=== PATIENT | female | born 1955 | race African-American/Black ===

== ENCOUNTER 2018-07-09 19:39 | Inpatient (IN) | payer OTHER ==
--- NOTE | 2018-07-09 19:59 | PDOC ---
Rapid Medical Evaluation Time Seen by Provider: 07/09/18 19:47 Medical Evaluation: Allergies Allergy/AdvReac Type Severity Reaction Status Date / Time No Known Drug Allergies Allergy Verified 04/26/16 19:39 07/09/18 19:47 The patient complaints of: weakness and fatigue with intermittent coughing, no fever no headache, mild left sided cp On brief exam: lcta, no reproducible cp, vss The patient was ordered for: ekg, cxr, cbc, comp, cardiac profile, mag The patient will proceed to the ED Discharge Disposition - Diagnosis Chest pain - Referrals - Patient Instructions - Post Discharge Activity
[2018-07-09 20:50] LABS: BASO % 0.5 % (0-2.0); EOS % 4.2 % (0-4.5); HEMATOCRIT 29.7 % (32.4-45.2); HEMOGLOBIN 9.5 GM/dL (10.7-15.3); LYMPH % 31.7 % (8-40); MCH 23.5 pg (25.7-33.7); MCHC 32.2 g/dl (32.0-36.0); MEAN PLT VOLUME 8.8 fl (7.5-11.1); MONO % 4.3 % (3.8-10.2); NEUT % 59.3 % (42.8-82.8); PLATELET COUNT 240 K/MM3 (134-434); RBC 4.06 M/mm3 (3.60-5.2); RDW 19.3 % (11.6-15.6); WHITE BLOOD COUNT 10.6 K/mm3 (4.0-10.0)
[2018-07-09 20:52] LABS: URINE APPEARANCE CLEAR; URINE BILIRUBIN NEGATIVE (<2.0 mg/dL); URINE COLOR LTYELLOW; URINE GLUCOSE (UA) 1+ (NEGATIVE); URINE KETONE NEGATIVE (NEGATIVE); URINE LEUK ESTERASE NEGATIVE (NEGATIVE); URINE NITRITE NEGATIVE (NEGATIVE); URINE PROTEIN 2+ (NEGATIVE); URINE UROBILINOGEN NEGATIVE mg/dL (0.2-1.0)
--- NOTE | 2018-07-09 20:58 | PDOC ---
History of Present Illness - General Chief Complaint: Pain Stated Complaint: SOB Time Seen by Provider: 07/09/18 19:47 History Source: Patient Exam Limitations: No Limitations - History of Present Illness Initial Comments: 07/09/18 21:25 62-year-old female with past medical history of myocardial infarction, coronary artery disease, coronary stent, diabetes, chronic renal disease, COPD, gout, stent in the left lower leg (PAD), bronchitis (1-2 times annually) presents to emergency department for cough, chest tightness and SOB for two days. She admits to exertional shortness of breath, bilateral lower extremity swelling (left greater than right), chills, body aches, headache, lightheadedness. She states when she was walking she had an episode of shortness of breath associated with peeing on herself. she denies palpitations, hemoptysis, fevers, nausea, diarrhea, vomiting, abdominal pain, back pain, recent falls or injuries, dizziness. She denies traveling >5 hours, surgery <4 weeks, active malignancy <6 months, hx DVT/PE, hormone use, casting of extremities. PCP - [employer] - pt does not remember name Vascular - pt does not remember name Renal - pt does not remember name Past History - Past Medical History Allergies/Adverse Reactions: Allergies Allergy/AdvReac Type Severity Reaction Status Date / Time No Known Drug Allergies Allergy Verified 07/09/18 19:53 Home Medications: Ambulatory Orders Aspirin [ASA -] 81 mg PO DAILY 09/04/12 Metoprolol Succinate [Toprol XL -] 50 mg PO DAILY 09/04/12 Simvastatin [Zocor -] 40 mg PO DAILY 09/04/12 Amlodipine Besylate [Norvasc -] 10 mg PO DAILY 01/11/13 Ramipril 5 mg PO DAILY 01/11/13 predniSONE [Deltasone -] 40 mg PO DAILY #8 tablet 04/26/16 Oxycodone HCl/Acetaminophen [Percocet 5-325 mg Tablet] 1 tab PO Q6H PRN #10 tablet MDD 4 04/27/16 Anemia: No Asthma: No Cancer: No Cardiac Disorders: No CVA: No COPD: No CHF: No Dementia: No Diabetes: No GI Disorders: No Disorders: No HTN: Yes Hypercholesterolemia: Yes Liver Disease: No Seizures: No Thyroid Disease: No - Surgical History Abdominal Surgery: Yes (ABD HERNIA: 12/14/12) Appendectomy: No Cardiac Surgery: No Cholecystectomy: No Lung Surgery: No Neurologic Surgery: No Orthopedic Surgery: No - Suicide/Smoking/Psychosocial Hx Smoking Status: Yes Smoking History: Current every day smoker Have you smoked in the past 12 months: Yes Number of Cigarettes Smoked Daily: 7 If you are a former smoker, when did you quit?: LAST WEEK Information on smoking cessation initiated: No 'Breaking Loose' booklet given: 09/07/12 Hx Alcohol Use: No Drug/Substance Use Hx: No Substance Use Type: Alcohol Hx Substance Use Treatment: No Review of Systems - Review of Systems Able to Perform ROS?: Yes Comments:: 07/09/18 21:27 General: admits to generalized weakness, chills, body aches. denies fever. HEENT: denies sore throat, rhinorrhea, ear pain. Heart: admits to chest tightness, lightheadedness. denies chest pain, palpitations, syncope, diaphoresis. Respiratory: admits to shortness of breath, cough. denies sputum production, hemoptysis. Abdomen: denies abdominal pain, nausea, vomiting, diarrhea, constipation, blood in stool. : denies dysuria, increased urinary frequency, hematuria, flank pain. Back: denies back pain. Musculoskeletal: admits to bilateral lower extremity swelling, (L>R) denies joint pain. Neurological: admits to headache. denies dizziness, numbness, tingling, weakness. Skin: denies rash, laceration, abrasion. *Physical Exam - Vital Signs Last Vital Signs Temp Pulse Resp BP Pulse Ox 99.2 F 82 18 144/94 98 07/09/18 19:46 07/09/18 19:46 07/09/18 19:46 07/09/18 19:46 07/09/18 19:46 - Physical Exam Comments: 07/09/18 21:29 Constitutional: Well-nourished, Well-developed, appearing stated age. HEENT: head is normocephalic, atraumatic. EOMI. PERRLA. Neck: supple. Full ROM. Heart: regular rhythm. no murmurs, rubs or gallops. Lungs: diffuse wheezing. no crackles, no stridor, no rhonchi. Abdomen: soft, nontender. normal bowel sounds. no rebound, guarding, masses. Extremities: Peripheral pulses intact and equal. non-pitting edema to ankles bilaterally, L>R. Neurological: CN 2-12 grossly intact. Moves all four extremities. Psych: awake, alert, oriented x3. Follows commands. Answers questions appropriately. ED Treatment Course - LABORATORY CBC & Chemistry Diagram: 07/10/18 06:30 07/10/18 06:30 - ADDITIONAL ORDERS Additional order review: Laboratory Results 07/09/18 20:20 Urine Color Ltyellow Urine Appearance Clear Urine pH 6.0 Ur Specific [place] 1.006 L Urine Protein 2+ H Urine Glucose (UA) 1+ H Urine Ketones Negative Urine Blood Negative Urine Nitrite Negative Urine Bilirubin Negative Urine Urobilinogen Negative Ur Leukocyte Esterase Negative Medical Decision Making - Medical Decision Making 07/09/18 21:41 62-year-old female with past medical history of myocardial infarction, coronary artery disease, coronary stent, diabetes, chronic renal disease, COPD, gout, stent in the left lower leg (PAD), bronchitis (1-2 times annually) presents to emergency department complaining of cough, chest tightness and SOB for two days associated with bilateral lower extremity swelling (L>R). Initial Vital Signs Temp Pulse Resp BP Pulse Ox 99.2 F 82 18 144/94 98 07/09/18 19:46 07/09/18 19:46 07/09/18 19:46 07/09/18 19:46 07/09/18 19:46 Afebrile. No tachycardia. No tachypnea. Mild hypertension. No hypoxia on room air. EKG performed at 2031 - rate 73, regular rhythm, normal axis, normal intervals, no acute ST changes. Concern for pneumonia/bronchitis - Pending CXR, CBC Concern for CHF - lower extremity swelling, exertional SOB, hx chronic renal disease - Pending CXR, BNP Concern for ACS/arrhythmia - Pending EKG, cardiac enzymes Concern for electrolyte abnormality - Pending CMP, Mag Low concern for DVT - bilateral LE swelling - Pending Doppler US LE bilaterally 07/09/18 22:19 CBC WBC 10.6 K/mm3 (4.0-10.0) H 07/09/18 20:20 RBC 4.06 M/mm3 (3.60-5.2) 07/09/18 20:20 Hgb 9.5 GM/dL (10.7-15.3) L 07/09/18 20:20 Hct 29.7 % (32.4-45.2) L D 07/09/18 20:20 MCV 73.0 fl (80-96) L 07/09/18 20:20 MCH 23.5 pg (25.7-33.7) L 07/09/18 20:20 MCHC 32.2 g/dl (32.0-36.0) 07/09/18 20:20 RDW 19.3 % (11.6-15.6) H 07/09/18 20:20 Plt Count 240 K/MM3 (134-434) 07/09/18 20:20 MPV 8.8 fl (7.5-11.1) 07/09/18 20:20 Absolute Neuts (auto) 6.3 K/mm3 (1.5-8.0) 07/09/18 20:20 Neutrophils % 59.3 % (42.8-82.8) 07/09/18 20:20 Lymphocytes % 31.7 % (8-40) 07/09/18 20:20 Monocytes % 4.3 % (3.8-10.2) 07/09/18 20:20 Eosinophils % 4.2 % (0-4.5) 07/09/18 20:20 Basophils % 0.5 % (0-2.0) 07/09/18 20:20 Nucleated RBC % 0 % (0-0) 07/09/18 20:20 Mild leukocytosis without left shift. No anemia. CMP Sodium 141 mmol/L (136-145) 07/09/18 20:20 Potassium 3.5 mmol/L (3.5-5.1) 07/09/18 20:20 Chloride 109 mmol/L (98-107) H 07/09/18 20:20 Carbon Dioxide 25 mmol/L (21-32) 07/09/18 20:20 Anion Gap 8 MMOL/L (8-16) 07/09/18 20:20 BUN 31 mg/dL (7-18) H 07/09/18 20:20 Creatinine 4.2 mg/dL (0.55-1.3) H 07/09/18 20:20 Creat Clearance w eGFR 10.76 (>60) 07/09/18 20:20 Random Glucose 114 mg/dL (74-106) H 07/09/18 20:20 Calcium 8.8 mg/dL (8.5-10.1) 07/09/18 20:20 Magnesium 2.4 mg/dL (1.8-2.4) 07/09/18 20:20 Total Bilirubin 0.3 mg/dL (0.2-1) 07/09/18 20:20 AST 33 U/L (15-37) 07/09/18 20:20 ALT 22 U/L (13-61) 07/09/18 20:20 Alkaline Phosphatase 111 U/L (45-117) 07/09/18 20:20 Creatine Kinase 348 IU/L (26-192) H 07/09/18 20:20 Creatine Kinase Index 0.7 % (0.0-5.0) 07/09/18 20:20 CK-MB (CK-2) 2.6 ng/mL (0.5-3.6) 07/09/18 20:20 Troponin I 0.02 ng/ml (0.00-0.05) 07/09/18 20:20 Total Protein 7.2 g/dl (6.4-8.2) 07/09/18 20:20 Albumin 2.8 g/dl (3.4-5.0) L 07/09/18 20:20 No emergent electrolyte abnormalities. Kidney injury. Mild hyperglycemia. - Hx DM Elevated CK Normal troponin. 07/09/18 22:22 Urine Test Results Urine Color Ltyellow 07/09/18 20:20 Urine Appearance Clear 07/09/18 20:20 Urine pH 6.0 (5.0-8.0) 07/09/18 20:20 Ur Specific [place] 1.006 (1.010-1.035) L 07/09/18 20:20 Urine Protein 2+ (NEGATIVE) H 07/09/18 20:20 Urine Glucose (UA) 1+ (NEGATIVE) H 07/09/18 20:20 Urine Ketones Negative (NEGATIVE) 07/09/18 20:20 Urine Blood Negative (NEGATIVE) 07/09/18 20:20 Urine Nitrite Negative (NEGATIVE) 07/09/18 20:20 Urine Bilirubin Negative (<2.0 mg/dL) 07/09/18 20:20 Ur Leukocyte Esterase Negative (NEGATIVE) 07/09/18 20:20 No evidence of UTI. Proteinuria. 07/09/18 22:30 CXR - no infiltrate. congestive changes as compared to prior (2016). Doppler US - negative for DVT bilaterally. 07/09/18 23:47 BNP 3457, prior 787 (2016). High suspicion for CHF and fluid overload at this time. - Elevated BNP - Congestive changes to CXR - Elevated Cr - Lower extremity swelling, SOB Due to her chronic kidney disease, and many other co-morbidities, I feel that the patient should be admitted at this time. Hospitalist paged. 07/10/18 00:[address] Ramirez, resident plastic and reconstructive surgeon, about the case, he states the patient will be admitted to Dr. Sullivan's care. *DC/Admit/Observation/Transfer Diagnosis at time of Disposition: Chest pain - Discharge Dispostion Condition at time of disposition: Stable Decision to Admit order: Yes - Referrals - Patient Instructions - Post Discharge Activity
[2018-07-09 21:20] LABS: ALBUMIN 2.8 g/dl (3.4-5.0); ALK PHOS 111 U/L (45-117); ANION GAP 8 MMOL/L (8-16); BILIRUBIN,TOTAL 0.3 mg/dL (0.2-1); BLOOD UREA NITROGEN 31 mg/dL (7-18); CALCIUM 8.8 mg/dL (8.5-10.1); CHLORIDE 109 mmol/L (98-107); CO2 25 mmol/L (21-32); CREATININE 4.2 mg/dL (0.55-1.3); GLUCOSE,RANDOM 114 mg/dL (74-106); MAGNESIUM 2.4 mg/dL (1.8-2.4); SGOT/AST 33 U/L (15-37); SGPT/ALT 22 U/L (13-61); SODIUM 141 mmol/L (136-145); TOT PROT 7.2 g/dl (6.4-8.2)
[2018-07-09 21:58] LABS: POTASSIUM 3.5 mmol/L (3.5-5.1)
--- NOTE | 2018-07-09 21:59 | PDOC ---
Attending Attestation - [facility] HPI: 07/09/18 23:14 The patient is a 62-year-old female with a significant past medical history of myocardial infarction, coronary stent, purple artery disease, diabetes, chronic renal disease, COPD, gout, stent in the left lower leg (PAD), bronchitis (1-2 times annually) who presents to the ED for cough, chest tightness and SOB for two days. Patient reports shortness of breath, bilateral lower extremity swelling (left greater than right), chills, body aches, headache, lightheadedness associated with present symptoms. She states when she was walking she had an episode of shortness of breath associated with peeing on herself. Denies fever or chills. Denies palpitations, hemoptysis, fevers, nausea, diarrhea, vomiting, abdominal pain. Denies any other symptoms. Documentation prepared by Nick Huynh, acting as medical representative for Liliana Armendariz DO. - Physicial Exam PE: 07/09/18 23:15 Constitutional: + sleeping comfortably, not short of breath. Awake, alert, oriented. No acute distress. Head: Normocephalic. Atraumatic Eyes: PERRL. EOMI. Conjunctivae are not pale. ENT: Mucous membranes are moist and intact. Posterior pharynx without exudates or erythema. Uvula midline. Neck: Supple. Full ROM. No lymphadenopathy. Cardiovascular: Regular rate. Regular rhythm. S1, S2 regular. Distal pulses are 2+ and symmetric. Pulmonary/Chest: + diminished breath sounds bilaterally. No wheezing, rales or rhonchi. Abdominal: Soft and non-distended. There is no tenderness. No rebound, guarding or rigidity. No organomegaly. No palpable masses. Good bowel sounds. Back: No CVA tenderness. Musculoskeletal: + Swelling in ankles bilaterally, left ankle trace swelling larger than right. No edema. No cyanosis. No clubbing. Full range of motion in all extremities. Nocalf tenderness. Radial/pedal pulses are intact and 2+ bilaterally Skin: Skin is warm and dry. No petechiae. No purpura. Neurological: Alert and oriented to person, place, and time. Cranial nerves II -XII are grossly intact. Normal speech. Strength is grossly symmetric. No sensory deficits. Psychiatric: Good eye contact. Normal interaction, affect and behavior. <Nick Huynh - Last Filed: 07/09/18 23:14> - Resident Resident Name: Kelly Feng - ED Attending Attestation I have performed the following: I have examined & evaluated the patient, The case was reviewed & discussed with the resident, I agree w/resident's findings & plan, Exceptions are as noted - Medical Decision Making 07/09/18 21:59 I, Dr. Liliana Armendariz, DO, attest that this document has been prepared under my direction and personally reviewed by me in its entirety. I further attest, that it accurately reflects all work, treatment, procedures and medical decision -making performed by me. 07/09/18 23:51 a/p: 62yo female with LE swelling and sob -hx of CKD - pending renal transplant -pt with [facility] -no cp -no f/c -pt with diminished BS b/l most likely from [facility] -will send labs, bnp, duplex us le, cxr -will most likely need obs 07/09/18 23:51 pt with elevated BNP cephalization on cxr duplex u/s negative suspect chf/volume overload will give small IV dose of lasix will place in obs 07/10/18 00:45 resident discussed with [facility] who accepts pt to service <Liliana Armendariz - Last Filed: 07/10/18 00:45> Heart Score/ECG Review - ECG Intrepretation Comment:: 07/09/18 23:52 sinus at 73, nl axis, nl interval, no acute st/t wave findings <Liliana Armendariz - Last Filed: 07/10/18 00:45>
[2018-07-09 23:37] LABS: N-TERMINAL BNP 3456.8 pg/ml (5-125)
[2018-07-09] MEDS ORDERED: ALBUTEROL SO4 2.5/IPRATROPIUM 0.5 INH SOL 3 ML VIAL.NEB. NEB ONE (23:45)
[2018-07-09] MEDS ORDERED: FUROSEMIDE 40 MG/4 ML INJECTABLE VIAL IVPUSH ONE (23:51)
[2018-07-09] MEDS: ALBUTEROL SO4 2.5/IPRATROPIUM 0.5 INH SOL 3 ML VIAL.NEB. NEB SCH (23:54)
--- NOTE | 2018-07-10 00:39 | PN ---
Teaching Attending Note Name of Resident: Jane Angelo ATTENDING PHYSICIAN STATEMENT I saw and evaluated the patient. I reviewed the resident's note and discussed the case with the resident. I agree with the resident's findings and plan as documented. SUBJECTIVE: Patient is a 62 year old woman with PMH of myocardial infarction, CAD with stent , NIDDM, CKD, COPD, gout, stent in the left lower leg (PAD), and bronchitis presents to ER for cough, chest tightness and SOB for two days. She admits to exertional shortness of breath, bilateral lower extremity swelling (left greater than right), chills, body aches, headache, lightheadedness. She states when she was walking she had an episode of shortness of breath associated with peeing on herself. Denies palpitations, hemoptysis, fevers, nausea, diarrhea, vomiting, abdominal pain, back pain, recent falls, dizziness or hormone use. OBJECTIVE: Alert Vital Signs Period Temp Pulse Resp BP Sys/[place] Pulse Ox Last 24 Hr 99.2 F 82 18 144/94 98 HEENT: No Jaundice, eye redness or discharge, PERRLA, EOMI. Normocephalic, atraumatic. External ears are normal and hearing is grossly intact. No nasal discharge. Neck: Supple, nontender. No palpable adenopathy or thyromegaly. No JVD Chest: Good effort. Clear to auscultation and percussion. Heart: Regular. No S3, rub or murmur Abdomen: Not distended, soft, nontender and no HSM. No rebound or guarding. Normoactive bowel sounds. Ext: Peripheral pulses intact. No leg edema. Skin: Warm and dry. No petechiae, rash or ecchymosis. Neuro: Alert. Oriented x3. CN 2-12 grossly intact. Sensation grossly intact in all four extremities and DTR are symmetric. Home Medications Medication Instructions Recorded Aspirin [ASA -] 81 mg PO DAILY 09/04/12 Metoprolol Succinate [Toprol XL -] 50 mg PO DAILY 09/04/12 Simvastatin [Zocor -] 40 mg PO DAILY 09/04/12 Amlodipine Besylate [Norvasc -] 10 mg PO DAILY 01/11/13 Ramipril 5 mg PO DAILY 01/11/13 predniSONE [Deltasone -] 40 mg PO DAILY #8 tablet 04/26/16 Oxycodone HCl/Acetaminophen 1 tab PO Q6H PRN #10 tablet MDD 4 04/27/16 [Percocet 5-325 mg Tablet] Abnormal Lab Results 07/09/18 07/09/18 07/09/18 20:20 20:20 20:20 WBC 10.6 H Hgb 9.5 L Hct 29.7 L D MCV 73.0 L MCH 23.5 L RDW 19.3 H Chloride 109 H BUN 31 H Creatinine 4.2 H Random Glucose 114 H Creatine Kinase 348 H B-Natriuretic Peptide 3456.8 H Albumin 2.8 L Ur Specific [place] 1.006 L Urine Protein 2+ H Urine Glucose (UA) 1+ H ASSESSMENT AND PLAN: 1. Chest pain/SOB - No significant EKG changes and troponin is negative. Will admit to telemetry to rule out ACS and get ECHO. SOB likely chiefly due to fluid overload accompanying CKD, rather than primary LV "pump" failure. Will diurese with appropriate dose of lasix and ensure that she is on lasix upon discharge. KATHRINE and/or obesity hypoventilation syndrome may be contributing to her SOB. CXR shows elevation of right hemidiaphragm which is chronic - no acute pathology. 2. Hypoalbuminemia - Possibly due to combined effects of proteinuria, malnutrition and inflammation associated with comorbid chronic conditions. Will ensure adequate dietary protein intake and also consult vein access technician. 3. Tobacco Use We will provide patient all the necessary assistance to facilitate smoking cessation and prescribe Nicotine patch. 4. CKD stage 4 - Has multiple risk factors for CKD. Will consult nephrology and avoid nephrotoxic agents such as NSAIDS, aminoglycosides, contrast dyes and certain Alternative medicine products. 5. Low MCV Anemia - Likely partly due to CKD. Will do basic anemia work up including serial stool guaiacs, reticulocyte count and iron studies. Needs routine colonoscopy. Would benefit from Procrit therapy once iron replete. 6. Obesity - Will provide patient all the necessary assistance, counseling and positive reinforcement to facilitate weight loss. Consult vein access technician. 7. DVT prophylaxis - Heparin 5000u sq tid. 8. Advance directives - Full code
--- NOTE | 2018-07-10 02:50 | HP ---
CHIEF COMPLAINT: Sob x1 week PCP: Dr. Lim HISTORY OF PRESENT ILLNESS: 62F w/ pmhx of HTN, HLD, GERD, Gout, CAD s/p 1 stent (2013), CKD, PVD s/p 1 stent, COPD, DM presented with 1 week history of shortness of breath. She states since a week ago, her shortness of breath was not correlated with walking until 1 day ago where she started becoming sob with any activity. Pt also reports usually using 2 pillows to sleep, but since 1 day ago, she started using 4-5 pillows. Of note, she admits that she has had multiple episodes of bronchitis in the past in which she used her nebulizer 3-4 times. She used her nebulizer yesterday, but with no relief. Pt also admits to lower extremity swelling L > R , pain in the R leg. Additionally, she complains of urinary incontinence for the past several years, +urinary dribbling, but has not told her PCP about this problem. Denies fever/chills, n/v, chest pain, abd pain, constipation/diarrhea, dizziness. Last echo was reportedly done last summer at [facility]. She follows up with her online media director at [facility]. ER course was notable for: (1) WBC 10.6, Hgb 9.5, Hct 29.7, Cr 42; U/A showed 2+ Pro, 1+ Glu; BNP, 3456; LE duplex neg for DVT, b/l popliteal fossa cyst (2) Duonebs given, Lasix 20 mg IVP given (3) Recent Travel: Denies PAST MEDICAL HISTORY: HTN HLD GERD Gout CAD s/p 1 stent CKD PVD s/p 1 sten COPD DM PAST SURGICAL HISTORY: ventral hernia repair C-sections x3 CAD s/p stent x1 L leg stent Social History: Smoking: Alcohol: Drugs: Family History: Mom: Heart disease, of [place] at 68, DM, HTN Allergies No Known Drug Allergies Allergy (Verified 07/09/18 19:53) HOME MEDICATIONS: Unable to obtain as patient forgot her medication list at home. REVIEW OF SYSTEMS CONSTITUTIONAL: Absent: fever, chills, diaphoresis, generalized weakness, malaise, loss of appetite, weight change HEENT: Absent: rhinorrhea, nasal congestion, throat pain, visual changes CARDIOVASCULAR: +peripheral edema Absent: chest pain, syncope, palpitations, irregular heart rate, lightheadedness , RESPIRATORY: +cough, shortness of breath, dyspnea with exertion, orthopnea Absent: wheezing, stridor, hemoptysis GASTROINTESTINAL: Absent: abdominal pain, abdominal distension, nausea, vomiting, diarrhea, constipation GENITOURINARY: Absent: dysuria, frequency, urgency, hesitancy, hematuria MUSCULOSKELETAL: Absent: myalgia, arthralgia, joint swelling, back pain, neck pain ENDOCRINE: Absent: unexplained weight gain, unexplained weight loss, heat intolerance, cold intolerance NEUROLOGIC: +bladder incontinence Absent: headache, focal weakness or paresthesias, dizziness, unsteady gait, seizure, mental status changes, bowel incontinence PSYCHIATRIC: Absent: anxiety, depression, suicidal or homicidal ideation, hallucinations. PHYSICAL EXAMINATION Vital Signs - 24 hr 07/09/18 19:46 Temperature 99.2 F Pulse Rate 82 Respiratory 18 Rate Blood Pressure 144/94 O2 Sat by Pulse 98 Oximetry (%) GENERAL: AAOx3. NAD. Mildly tachypneic. Sitting upright. HEENT: AT/NC. EOMI. MARIUSZ. Dry mucus membranes. NECK: Supple, no LAD/JVD. LUNGS: CTA B/L. R sided wheezes. Symmetric chest rise. No accessory muscle use. HEART: RRR. Normal S1, S2. No murmurs noted. ABDOMEN: Obese. Soft, NT/ND. +BS in all 4 Q's. No masses or bruits noted. MUSCULOSKELETAL: No pedal edema. 5/5 muscle strength in b/l u/l extremities. NEUROLOGICAL: Normal speech. CN II-XII intact. PSYCHIATRIC: Cooperative. Good eye contact. Appropriate mood and affect. SKIN: Warm, dry, normal turgor, normal capillary refill. Laboratory Results - last 24 hr 07/09/18 07/09/18 07/09/18 20:20 20:20 20:20 WBC 10.6 H RBC 4.06 Hgb 9.5 L Hct 29.7 L D MCV 73.0 L MCH 23.5 L MCHC 32.2 RDW 19.3 H Plt Count 240 MPV 8.8 Absolute Neuts (auto) 6.3 Neutrophils % 59.3 Lymphocytes % 31.7 Monocytes % 4.3 Eosinophils % 4.2 Basophils % 0.5 Nucleated RBC % 0 Sodium 141 Potassium 3.5 Chloride 109 H Carbon Dioxide 25 Anion Gap 8 BUN 31 H Creatinine 4.2 H Creat Clearance w eGFR 10.76 Random Glucose 114 H Calcium 8.8 Magnesium 2.4 Total Bilirubin 0.3 AST 33 ALT 22 Alkaline Phosphatase 111 Creatine Kinase 348 H Creatine Kinase Index 0.7 CK-MB (CK-2) 2.6 Troponin I 0.02 B-Natriuretic Peptide 3456.8 H Total Protein 7.2 Albumin 2.8 L Urine Color Ltyellow Urine Appearance Clear Urine pH 6.0 Ur Specific [place] 1.006 L Urine Protein 2+ H Urine Glucose (UA) 1+ H Urine Ketones Negative Urine Blood Negative Urine Nitrite Negative Urine Bilirubin Negative Urine Urobilinogen Negative Ur Leukocyte Esterase Negative Urine WBC (Auto) 1 Urine RBC (Auto) <1 07/09/18 20:23 WBC RBC Hgb Hct MCV MCH MCHC RDW Plt Count MPV Absolute Neuts (auto) Neutrophils % Lymphocytes % Monocytes % Eosinophils % Basophils % Nucleated RBC % Sodium Potassium Chloride Carbon Dioxide Anion Gap BUN Creatinine Creat Clearance w eGFR Random Glucose Calcium Magnesium Total Bilirubin AST ALT Alkaline Phosphatase Creatine Kinase Creatine Kinase Index CK-MB (CK-2) Troponin I B-Natriuretic Peptide Cancelled Total Protein Albumin Urine Color Urine Appearance Urine pH Ur Specific [place] Urine Protein Urine Glucose (UA) Urine Ketones Urine Blood Urine Nitrite Urine Bilirubin Urine Urobilinogen Ur Leukocyte Esterase Urine WBC (Auto) Urine RBC (Auto) ASSESSMENT/PLAN: 62F w/ pmhx of HTN, HLD, GERD, Gout, CAD s/p 1 stent (2013), CKD, PVD s/p 1 stent, COPD, DM admitted for CHF exacerbation. #Shortness of breath 2/2 CHF exacerbation vs. OHS. vs KATHRINE; BNP 3456 w/ R sided wheezes and significant orthopnea. Pt likely has CHF exac as she states she has been needing to use 4-5 pillows at night to help her breath. She may also have a component of sleep apnea or OHS due to her body habitus. -Lasix 80 mg IVP QD -monitor I/O's -daily weights -Echo ordered -Pt needs outpatient work up for possible OHS or KATHRINE as cause of sob. #CKD; Possibly due to diabetes, although unclear from history. She states that all of her specialists are from [facility]. Pt has never been on dialysis because her paving contractor was again starting her on HD and instead, getting a transplant. She reports she was put on the transplant list last summer. -Nephro consult ordered -Pt needs outpatient follow up with her own paving contractor #Anemia;Hgb 9.5. May be due to CKD. -Iron studies/retic count/FOBT ordered -Verify with pt if she had colonoscopy done before. If not, pt needs GI follow up outpatient #DM; Pt states that she gets weekly injection in her belly for her diabetes. History unclear as pt says her diabetes is "under control." -BGMs -ISS -Pt will need outpatient follow up for further evaluation and proper treatment of diabetes. -Hgb A1c ordered #HTN; Currently 144/94, stable. -Pt currently takes home BP meds, but cannot name her meds. Needs med rec. #HLD -Lipid profile ordered -Pt takes statin at home, but unsure of what dose; Needs med rec. #Obesity -Poultry Husbandman consult -Nutrition counseling/weight loss counseling #DVT Ppx -Heparin 5000U SQ TID #FEN -no IVf needed -recheck lytes in AM -Sodium-controlled diet dispo -admit to med-surg -full code -Needs medications reconciled Visit type - Emergency Visit Emergency Visit: Yes ED Registration Date: 07/09/18 Care time: The patient presented to the Emergency Department on the above date and was hospitalized for further evaluation of their emergent condition. - New Patient This patient is new to me today: Yes Date on this admission: 07/10/18 - Critical Care Critical Care patient: No
[2018-07-10] MEDS ORDERED: FUROSEMIDE 40 MG/4 ML INJECTABLE VIAL ONE ×3 (05:40→10:14)
[2018-07-10 06:41] LABS: BASO % 0.6 % (0-2.0); EOS % 3.9 % (0-4.5); HEMATOCRIT 29.8 % (32.4-45.2); HEMOGLOBIN 9.5 GM/dL (10.7-15.3); LYMPH % 28.7 % (8-40); MCH 23.2 pg (25.7-33.7); MEAN CELL VOLUME 72.5 fl (80-96); MEAN PLT VOLUME 8.4 fl (7.5-11.1); MONO % 4.2 % (3.8-10.2); NEUT % 62.6 % (42.8-82.8); PLATELET COUNT 213 K/MM3 (134-434); RBC 4.12 M/mm3 (3.60-5.2); RDW 19.7 % (11.6-15.6)
[2018-07-10] MEDS: HEPARIN NA (PORCINE) 5,000 UNITS/ML 1ML VIAL SQ SCH ×3 (06:45→22:00)
[2018-07-10] MEDS: INSULIN SLIDING SCALE (NOVOLOG) 1 VIAL SQ SCH ×4 (06:56→22:00)
[2018-07-10 07:16] LABS: ALBUMIN 2.9 g/dl (3.4-5.0); ALK PHOS 112 U/L (45-117); ANION GAP 8 MMOL/L (8-16); BILIRUBIN,TOTAL 0.3 mg/dL (0.2-1); BLOOD UREA NITROGEN 31 mg/dL (7-18); CALCIUM 8.7 mg/dL (8.5-10.1); CHLORIDE 108 mmol/L (98-107); CO2 25 mmol/L (21-32); CREATININE 4.1 mg/dL (0.55-1.3); GLUCOSE,RANDOM 114 mg/dL (74-106); POTASSIUM 3.2 mmol/L (3.5-5.1); SGOT/AST 26 U/L (15-37); SGPT/ALT 21 U/L (13-61); SODIUM 142 mmol/L (136-145); TOT PROT 7.2 g/dl (6.4-8.2)
[2018-07-10 09:42] LABS: CHOLESTEROL 150 mg/dL (50-200); HDL CHOLESTEROL 56 mg/dL (40-60); TRIGLYCERIDES 117 mg/dL (0-150)
--- NOTE | 2018-07-10 09:45 | EKG ---
Test Reason : Blood Pressure : / mmHG Vent. Rate : 073 BPM Atrial Rate : 073 BPM P-R Int : 196 ms QRS Dur : 074 ms QT Int : 398 ms P-R-T Axes : 072 048 063 degrees QTc Int : 438 ms NORMAL SINUS RHYTHM Confirmed by CONNOR MALDONADO MD ([id number]) on 07/10/2018 9:44:28 AM Referred By: Confirmed By:CONNOR MALDONADO MD
[2018-07-10] MEDS ORDERED: POTASSIUM CHLORIDE ORAL LIQUID 20 MEQ/15 ML PO ONE (09:51)
--- NOTE | 2018-07-10 09:51 | PN ---
Progress Note, Physician Chief Complaint: Feel less SOB - Current Medication List Current Medications: Active Medications F Home Medication List Medication Instructions Recorded Confirmed Type Aspirin [ASA -] 81 mg PO DAILY 09/04/12 07/10/18 History Metoprolol Succinate [Toprol XL -] 50 mg PO DAILY 09/04/12 07/10/18 History Simvastatin [Zocor -] 40 mg PO DAILY 09/04/12 07/10/18 History Amlodipine Besylate [Norvasc -] 10 mg PO DAILY 01/11/13 07/10/18 History Ramipril 5 mg PO DAILY 01/11/13 07/10/18 History Active Medications Active Medications Acetaminophen (Tylenol -) 325 mg PO Q6H PRN PRN Reason: PAIN 6-10 Amlodipine Besylate (Norvasc -) 10 mg PO DAILY [facility] Aspirin (Asa -) 81 mg PO DAILY [facility] Atorvastatin Calcium (Lipitor -) 20 mg PO HS [facility] Furosemide (Lasix Injection -) 80 mg IVPUSH DAILY [facility] Last Admin: 07/10/18 10:00 Dose: 80 mg Heparin Sodium (Porcine) (Heparin -) 5,000 unit SQ TID [facility] Last Admin: 07/10/18 14:22 Dose: 5,000 unit Insulin Aspart (Novolog Vial Sliding Scale -) 1 vial SQ ACHS [facility]; Protocol Last Admin: 07/10/18 11:28 Dose: Not Given Metoprolol Succinate (Toprol Xl -) 50 mg PO DAILY [facility] Oxycodone HCl (Roxicodone -) 5 mg PO Q6H PRN PRN Reason: PAIN 6-10 - Objective Vital Signs: Vital Signs Temperature 97.8 F 07/10/18 06:30 Pulse Rate 89 07/10/18 06:30 Respiratory Rate 20 07/10/18 06:30 Blood Pressure 132/105 H 07/10/18 06:30 O2 Sat by Pulse Oximetry (%) 100 07/10/18 06:30 Constitutional: Yes: Well Nourished, No Distress, Calm Eyes: Yes: WNL, Conjunctiva Clear, EOM Intact HENT: Yes: WNL, Atraumatic, Normocephalic Neck: Yes: WNL, Supple, Trachea Midline Cardiovascular: Yes: Regular Rate and Rhythm, S1, S2. No: JVD, Murmur Respiratory: Yes: Regular, Rales, SOB Gastrointestinal: Yes: Normal Bowel Sounds, Soft Musculoskeletal: No: Back Pain, Joint Stiffness Edema: Yes Edema: RUE: 1+, LLE: 1+ Peripheral Pulses: Left Doralis Pedis: 2+, Right Dorsalis Pedis: 2+ Neurological: Yes: Alert, Oriented, Cran Nerves II-XII Intact ...Motor Strength: WNL, LUE, LLE, RUE, RLE Labs: CBC, BMP 07/10/18 06:30 07/10/18 06:30 - ....Imaging X-ray: Report Reviewed (Pulmonary congestion) Problem List - Problems (1) SOB (shortness of breath) on exertion Assessment/Plan: Due to Volume overload / CHF exacerbation Low sat Diet, Nephrology consult ECHO < IP/Op chart optimize BP control. Code(s): R06.02 - SHORTNESS OF BREATH (2) CKD (chronic kidney disease) stage 5, GFR less than 15 ml/min Assessment/Plan: CKD stage 5 GFR < 15 last no recent GFR is available will F/U with her Public Relations Associate Dr Hsu , Renal Diet, IP/Op chart F/U BMP Code(s): N18.5 - CHRONIC KIDNEY DISEASE, STAGE 5 (3) HTN (hypertension) Assessment/Plan: Well controlled Comt Metoprolol and Amlodipine Code(s): I10 - ESSENTIAL (PRIMARY) HYPERTENSION (4) Anemia Assessment/Plan: Due to CKD F/U anemia W/U Code(s): D64.9 - ANEMIA, UNSPECIFIED (5) Hypokalemia Assessment/Plan: Replete PO KCL 40 m Eq F/U BMP Code(s): E87.6 - HYPOKALEMIA (6) CHF (congestive heart failure), NYHA class III Assessment/Plan: Patient present with SOB, CHEATHAM and orthopnea elevated BNT improved after IV Lasix will F/U ECHO no base line ECHO is available. Code(s): I50.9 - HEART FAILURE, UNSPECIFIED (7) CAD (coronary artery disease) Assessment/Plan: S/P pCI asymptomatic will F/U CE X2 cont B Blockers ASA and Statin Code(s): I25.10 - ATHSCL HEART DISEASE OF [place] CORONARY ARTERY W/O ANG PCTRS (8) Gout Assessment/Plan: not on uricosuric will F/U Uric aci Code(s): M10.9 - GOUT, UNSPECIFIED
[2018-07-10] MEDS: FUROSEMIDE 40 MG/4 ML INJECTABLE VIAL IVPUSH SCH (10:00)
[2018-07-10 10:07] LABS: PHOSPHOROUS 3.5 mg/dL (2.5-4.9)
[2018-07-10] MEDS ORDERED: ACETAMINOPHEN 325 MG TABLET (FP) PO PRN (12:16)
[2018-07-10] MEDS ORDERED: oxyCODONE HCL 5 MG TABLET PO PRN (12:16)
[2018-07-10] MEDS ORDERED: HEPARIN NA (PORCINE) 5,000 UNITS/ML 1ML VIAL ONE ×2 (14:25→21:40)
--- NOTE | 2018-07-10 15:17 | ECHO ---
Name: KELSEY VELASCO Exam:Adult Echocardiogram Study Date: 07/10/2018 02:37 PM Age: 62 yrs Reason For Study: CHF Height: 64 in Weight: 245 lb BSA: 2.1 m2 MMode/2D Measurements & Calculations IVSd: 0.86 cm Ao root diam: 2.7 cm LVIDd: 4.8 cm LA dimension: 3.5 cm LVIDs: 3.0 cm LVPWd: 0.91 cm EDV(Teich): 105.6 ml RV S Leon: 14.7 cm/sec ESV(Teich): 33.7 ml Doppler Measurements & Calculations MV E max leon: 105.1 cm/sec MR max leon: 504.9 cm/sec MV A max leon: 112.0 cm/sec MR max P.3 mmHg MV E/A: 0.94 MV dec time: 0.21 sec TR max leon: 224.5 cm/sec Med Peak E' Leon: 4.6 cm/sec TR max P.4 mmHg Med E/e': 22.9 Lat Peak E' Leon: 6.1 cm/sec Lat E/e': 17.1 Left Ventricle Left ventricular systolic function is normal. Ejection Fraction = 55-60%. Right Ventricle The right ventricle is normal in size and function. Atria The left atrium is borderline dilated. Mitral Valve The mitral valve is normal in structure and function. There is no mitral valve stenosis. There is mil d mitral regurgitation. Tricuspid Valve The tricuspid valve is normal in structure and function. There is mild tricuspid regurgitation. Aortic Valve There is mild aortic sclerosis.;. No hemodynamically significant valvular aortic stenosis. No aortic regurgitation is present. Pulmonic Valve The pulmonic valve is not well seen, but is grossly normal. There is no pulmonic valvular stenosis. T here is no pulmonic valvular regurgitation. Great Vessels The aortic root is normal size. Pericardium/Pleura There is no pericardial effusion. Interpretation Summary Left ventricular systolic function is normal. Ejection Fraction = 55-60%. The right ventricle is normal in size and function. There is mild mitral regurgitation. There is mild tricuspid regurgitation. There is mild aortic sclerosis.; There is no pericardial effusion. MD Reinier Hampton 07/10/2018 03:16 PM
--- NOTE | 2018-07-10 17:08 | CONSULT ---
Consult Consult Specialty:: Nephrology Reason for Consultation:: CKD - History of Present Illness Chief Complaint: shortness of breath History of Present Illness: Pt is a 62 year old female with pmhx of CAD, CKD, DM, COPD, gout, PAD and bronchitis who presents to the ER complaining of shortness of breath and lower ext edema. She has history of CKD who I was called to evaluate her. She follows with Dr Arriaza. She says that her creatinine is about 4. She feels that her breathing is better today. She has been taking advil on a daily basis for aches and pains. She denies fevers or chills. - History Source History Provided By: Patient - Past Medical History Cardio/Vascular: Yes: CAD, HTN, Hyperlipdemia, Other (PAD) Pulmonary: Yes: COPD Renal/: Yes: Renal Inusuff Rheumatology: Yes: Gout - Alcohol/Substance Use Hx Alcohol Use: No - Smoking History Smoking history: Current every day smoker Have you smoked in the past 12 months: Yes Aproximately how many cigarettes per day: 7 If you are a former smoker, when did you quit?: LAST WEEK Home Medications - Allergies Allergies/Adverse Reactions: Allergies Allergy/AdvReac Type Severity Reaction Status Date / Time No Known Drug Allergies Allergy Verified 07/09/18 19:53 - Home Medications Home Medications: Ambulatory Orders Aspirin [ASA -] 81 mg PO DAILY 09/04/12 Metoprolol Succinate [Toprol XL -] 50 mg PO DAILY 09/04/12 Simvastatin [Zocor -] 40 mg PO DAILY 09/04/12 Amlodipine Besylate [Norvasc -] 10 mg PO DAILY 01/11/13 Ramipril 5 mg PO DAILY 01/11/13 predniSONE [Deltasone -] 40 mg PO DAILY #8 tablet 04/26/16 Oxycodone HCl/Acetaminophen [Percocet 5-325 mg Tablet] 1 tab PO Q6H PRN #10 tablet MDD 4 04/27/16 Family Disease History - Family Disease History Family History: Denies Review of Systems - Review of Systems Constitutional: reports: Malaise Eyes: reports: No Symptoms HENT: reports: No Symptoms Neck: reports: No Symptoms Cardiovascular: reports: Edema Respiratory: reports: SOB, SOB on Exertion Genitourinary: reports: No Symptoms Musculoskeletal: reports: No Symptoms Integumentary: reports: No Symptoms Neurological: reports: No Symptoms Endocrine: reports: No Symptoms Hematology/Lymphatic: reports: No Symptoms Psychiatric: reports: No Symptoms Physical Exam Vital Signs: Vital Signs Temperature 98.1 F 07/10/18 09:58 Pulse Rate 77 07/10/18 09:58 Respiratory Rate 16 07/10/18 09:58 Blood Pressure 155/87 07/10/18 09:58 O2 Sat by Pulse Oximetry (%) 99 07/10/18 09:58 Constitutional: Yes: Calm Eyes: Yes: Conjunctiva Clear HENT: Yes: Atraumatic Neck: Yes: Supple Cardiovascular: Yes: S1, S2 Respiratory: Yes: CTA Bilaterally Gastrointestinal: Yes: Soft Renal/: Yes: WNL Musculoskeletal: Yes: WNL Edema: LLE: Trace, RLE: Trace Neurological: Yes: Oriented Psychiatric: Yes: Oriented Labs: CBC, BMP 07/10/18 06:30 07/10/18 06:30 Laboratory Tests 07/09/18 07/09/18 07/09/18 20:20 20:20 20:20 WBC 10.6 H Hgb 9.5 L Potassium Creatinine 4.2 H Urine Protein 2+ H Urine Blood Negative 07/10/18 07/10/18 06:30 06:30 WBC 8.0 Hgb 9.5 L Potassium 3.2 L Creatinine 4.1 H Urine Protein Urine Blood Imaging - Results Chest X-ray: Report Reviewed Problem List - Problems (1) CAD (coronary artery disease) Code(s): I25.10 - ATHSCL HEART DISEASE OF [place] CORONARY ARTERY W/O ANG PCTRS (2) CHF (congestive heart failure), NYHA class III Code(s): I50.9 - HEART FAILURE, UNSPECIFIED (3) CKD (chronic kidney disease) stage 5, GFR less than 15 ml/min Code(s): N18.5 - CHRONIC KIDNEY DISEASE, STAGE 5 (4) Gout Code(s): M10.9 - GOUT, UNSPECIFIED (5) HTN (hypertension) Code(s): I10 - ESSENTIAL (PRIMARY) HYPERTENSION Assessment/Plan Current Medications Generic Name Dose Route Start Last Admin Trade Name Freq PRN Reason Stop Dose Admin Acetaminophen 325 mg 07/10/18 12:16 Tylenol - PO Q6H PRN PAIN 6-10 Amlodipine Besylate 10 mg 07/11/18 10:00 Norvasc - PO DAILY [facility] Aspirin 81 mg 07/11/18 10:00 Asa - PO DAILY [facility] Atorvastatin Calcium 20 mg 07/10/18 22:00 Lipitor - PO HS [facility] Furosemide 80 mg 07/10/18 10:00 07/10/18 10:00 Lasix Injection - IVPUSH 80 mg DAILY [facility] Administration Heparin Sodium (Porcine) 5,000 unit 07/10/18 06:00 07/10/18 14:22 Heparin - SQ 5,000 unit TID [facility] Administration Insulin Aspart 1 vial 07/10/18 07:00 07/10/18 11:28 Novolog Vial Sliding Scale - SQ Not Given ACHS [facility] Protocol Metoprolol Succinate 50 mg 07/11/18 10:00 Toprol Xl - PO DAILY [facility] Oxycodone HCl 5 mg 07/10/18 12:16 Roxicodone - PO Q6H PRN PAIN 6-10 Impression 1. CKD 2. CHF 3. PVD 4. HTN 5. CAD 6. COPD 7. Gout Plan - replace potassium - check mag - monitor renal function with lasix - can stop hctz - consider switching to PO lasix for tomorrow - will follow Dr Bartholomew
[2018-07-10] MEDS ORDERED: oxyCODONE HCL 5 MG TABLET ONE (21:40)
[2018-07-10] MEDS ORDERED: INSULIN (NOVOLOG) ASPART 100 UNITS/ML 10ML VIAL ONE (21:41)
[2018-07-10] MEDS: ATORVASTATIN CA 20 MG TABLET (FP) PO SCH (22:15)
[2018-07-11] MEDS ORDERED: FLU VACCINE QUAD 60 MCG/0.5 ML (MDV 18-19) IM ONE (01:23)
[2018-07-11] MEDS ORDERED: PNEUMOC 13-VAL CONJ-DIP CRM/PF 0.5 ML DISP.SYRIN IM ONE (01:23)
[2018-07-11] MEDS: INSULIN SLIDING SCALE (NOVOLOG) 1 VIAL SQ SCH ×4 (06:41→22:17)
[2018-07-11] MEDS: HEPARIN NA (PORCINE) 5,000 UNITS/ML 1ML VIAL SQ SCH ×3 (06:43→22:16)
[2018-07-11 08:08] LABS: SERUM IRON SATURATION 10 % (15-55); TOTAL IRON BINDING CAPACITY 271 ug/dL (250-450); UIBC 245 ug/dL (118-369)
--- NOTE | 2018-07-11 08:51 | PN ---
Progress Note, Physician Chief Complaint: Feel less SOB - Current Medication List Current Medications: Active Medications Acetaminophen (Tylenol -) 325 mg PO Q6H PRN PRN Reason: PAIN 6-10 Amlodipine Besylate (Norvasc -) 10 mg PO DAILY [facility] Aspirin (Asa -) 81 mg PO DAILY [facility] Atorvastatin Calcium (Lipitor -) 20 mg PO HS [facility] Last Admin: 07/10/18 22:15 Dose: 20 mg Furosemide (Lasix Injection -) 80 mg IVPUSH DAILY [facility] Last Admin: 07/10/18 10:00 Dose: 80 mg Heparin Sodium (Porcine) (Heparin -) 5,000 unit SQ TID [facility] Last Admin: 07/11/18 06:43 Dose: 5,000 unit Insulin Aspart (Novolog Vial Sliding Scale -) 1 vial SQ ACHS [facility]; Protocol Last Admin: 07/11/18 06:41 Dose: Not Given Metoprolol Succinate (Toprol Xl -) 50 mg PO DAILY [facility] Oxycodone HCl (Roxicodone -) 5 mg PO Q6H PRN PRN Reason: PAIN 6-10 Last Admin: 07/10/18 22:00 Dose: 5 mg Pneumococcal Polyvalent Vaccine (Pneumovax -) 0.5 ml IM .ONCE ONE Stop: 07/11/18 10:01 - Objective Vital Signs: Vital Signs Temperature 98.2 F 07/11/18 06:00 Pulse Rate 80 07/11/18 06:00 Respiratory Rate 20 07/11/18 06:00 Blood Pressure 176/91 H 07/11/18 06:00 O2 Sat by Pulse Oximetry (%) 100 07/11/18 00:48 Constitutional: Yes: Well Nourished, No Distress, Calm Eyes: Yes: WNL, Conjunctiva Clear, EOM Intact HENT: Yes: WNL, Atraumatic, Normocephalic Neck: Yes: WNL, Supple, Trachea Midline Cardiovascular: Yes: Regular Rate and Rhythm, S1, S2. No: JVD, Murmur Respiratory: Yes: Regular, Rales, SOB Gastrointestinal: Yes: Normal Bowel Sounds, Soft Musculoskeletal: No: Back Pain, Joint Stiffness Edema: Yes Edema: RUE: 1+, LLE: 1+ Peripheral Pulses: Left Doralis Pedis: 2+, Right Dorsalis Pedis: 2+ Neurological: Yes: Alert, Oriented, Cran Nerves II-XII Intact ...Motor Strength: WNL, LUE, LLE, RUE, RLE Labs: CBC, BMP 07/10/18 06:30 Problem List - Problems (1) SOB (shortness of breath) on exertion Assessment/Plan: Due to Volume overload / CHF exacerbation Low sat Diet, Nephrology consult ECHO < IP/Op chart optimize BP control. Code(s): R06.02 - SHORTNESS OF BREATH (2) CKD (chronic kidney disease) stage 5, GFR less than 15 ml/min Assessment/Plan: CKD stage 5 GFR < 15 last no recent GFR is available will F/U with her Hadoop Administrator Dr Hsu , Renal Diet, IP/Op chart F/U BMP Code(s): N18.5 - CHRONIC KIDNEY DISEASE, STAGE 5 (3) HTN (hypertension) Assessment/Plan: Well controlled Comt Metoprolol and Amlodipine Code(s): I10 - ESSENTIAL (PRIMARY) HYPERTENSION (4) Anemia Assessment/Plan: Due to CKD F/U anemia W/U Code(s): D64.9 - ANEMIA, UNSPECIFIED (5) Hypokalemia Assessment/Plan: Replete PO KCL 40 m Eq F/U BMP Code(s): E87.6 - HYPOKALEMIA (6) CHF (congestive heart failure), NYHA class III Assessment/Plan: Patient present with SOB, CHEATHAM and orthopnea elevated BNT improved after IV Lasix will F/U ECHO no base line ECHO is available. Code(s): I50.9 - HEART FAILURE, UNSPECIFIED (7) CAD (coronary artery disease) Assessment/Plan: S/P pCI asymptomatic will F/U CE X2 cont B Blockers ASA and Statin Code(s): I25.10 - ATHSCL HEART DISEASE OF [place] CORONARY ARTERY W/O ANG PCTRS (8) Gout Assessment/Plan: not on uricosuric will F/U Uric aci Code(s): M10.9 - GOUT, UNSPECIFIED
[2018-07-11 08:52] LABS: ALBUMIN 2.6 g/dl (3.4-5.0); ALK PHOS 107 U/L (45-117); ANION GAP 9 MMOL/L (8-16); BILIRUBIN,TOTAL 0.5 mg/dL (0.2-1); BLOOD UREA NITROGEN 26 mg/dL (7-18); CALCIUM 8.3 mg/dL (8.5-10.1); CHLORIDE 106 mmol/L (98-107); CO2 26 mmol/L (21-32); CREATININE 3.9 mg/dL (0.55-1.3); GLUCOSE,RANDOM 91 mg/dL (74-106); MAGNESIUM 2.1 mg/dL (1.8-2.4); POTASSIUM 3.3 mmol/L (3.5-5.1); SGOT/AST 23 U/L (15-37); SGPT/ALT 18 U/L (13-61); SODIUM 141 mmol/L (136-145); TOT PROT 6.6 g/dl (6.4-8.2)
[2018-07-11] MEDS: amLODIPine BESYLATE 10 MG TABLET (FP) PO SCH (09:28)
[2018-07-11] MEDS: FUROSEMIDE 40 MG/4 ML INJECTABLE VIAL IVPUSH SCH (09:28)
[2018-07-11] MEDS: ASPIRIN 81 MG CHEWABLE TABLETS PO SCH (09:28)
[2018-07-11] MEDS ORDERED: RAMIPRIL 5 MG CAPSULE (FP) PO SCH (10:00)
[2018-07-11] MEDS ORDERED: PNEUMOCOCCAL 23 VACCINE 0.5 ML VIAL IM ONE (10:00)
[2018-07-11] MEDS ORDERED: POTASSIUM CHLORIDE ORAL LIQUID 20 MEQ/15 ML PO ONE (12:00)
--- NOTE | 2018-07-11 12:41 | PN ---
Progress Note (short form) - Note Progress Note: RENAL pt awake and alert states her dyspnea had progressed over 2 weeks Last Vital Signs Temp Pulse Resp BP Pulse Ox 98 F 84 20 180/100 H 100 07/11/18 10:00 07/11/18 10:00 07/11/18 10:00 07/11/18 10:00 07/11/18 09:00 lungs decreased on right cvs s1s2 rr abd soft ext no edema neuro a+o X3 CBC, BMP 07/10/18 06:30 07/11/18 05:30 Current Medications Generic Name Dose Route Start Last Admin Trade Name Freq PRN Reason Stop Dose Admin Acetaminophen 325 mg 07/10/18 12:16 Tylenol - PO Q6H PRN PAIN 6-10 Amlodipine Besylate 10 mg 07/11/18 10:00 07/11/18 09:28 Norvasc - PO 10 mg DAILY [facility] Administration Aspirin 81 mg 07/11/18 10:00 07/11/18 09:28 Asa - PO 81 mg DAILY [facility] Administration Atorvastatin Calcium 20 mg 07/10/18 22:00 07/10/18 22:15 Lipitor - PO 20 mg HS [facility] Administration Furosemide 80 mg 07/10/18 10:00 07/11/18 09:28 Lasix Injection - IVPUSH 80 mg DAILY [facility] Administration Heparin Sodium (Porcine) 5,000 unit 07/10/18 06:00 07/11/18 06:43 Heparin - SQ 5,000 unit TID [facility] Administration Insulin Aspart 1 vial 07/10/18 07:00 07/11/18 11:33 Novolog Vial Sliding Scale - SQ Not Given ACHS [facility] Protocol Metoprolol Succinate 50 mg 07/11/18 10:00 07/11/18 09:28 Toprol Xl - PO 50 mg DAILY [facility] Administration Oxycodone HCl 5 mg 07/10/18 12:16 07/10/18 22:00 Roxicodone - PO 5 mg Q6H PRN Administration PAIN 6-10 Impression 1. CKD 2. CHF- probable diastolic dysfunction 3. PVD 4. HTN 5. CAD 6. COPD 7. Gout Plan -keep on lasix- switch to po -switch metoprolol to labetalol 200 bid and add hydralazine and isordil if necessary -would ask cardiology to evaluate patient especially given history of cad and pad MV
[2018-07-11] MEDS: hydrALAZINE HCL 25 MG TABLET (FP) PO SCH ×2 (15:28→22:15)
[2018-07-11] MEDS: ATORVASTATIN CA 20 MG TABLET (FP) PO SCH (22:15)
[2018-07-12 00:06] VITALS: BMI 41.7
[2018-07-12] MEDS ORDERED: MELATONIN 5 MG TABLETS PO PRN (03:46)
[2018-07-12] MEDS ORDERED: MELATONIN 5 MG TABLETS PO ONE (03:46)
[2018-07-12] MEDS: hydrALAZINE HCL 25 MG TABLET (FP) PO SCH (05:37)
[2018-07-12] MEDS: HEPARIN NA (PORCINE) 5,000 UNITS/ML 1ML VIAL SQ SCH ×2 (05:38→13:58)
[2018-07-12] MEDS: INSULIN SLIDING SCALE (NOVOLOG) 1 VIAL SQ SCH ×2 (06:04→11:50)
[2018-07-12 07:27] LABS: HEMATOCRIT 30.7 % (32.4-45.2); HEMOGLOBIN 9.9 GM/dL (10.7-15.3); LYMPH % 41.2 % (8-40); MCH 23.5 pg (25.7-33.7); MCHC 32.3 g/dl (32.0-36.0); MEAN CELL VOLUME 72.8 fl (80-96); MEAN PLT VOLUME 8.8 fl (7.5-11.1); MONO % 36.3 % (3.8-10.2); NEUT % 17.5 % (42.8-82.8); PLATELET COUNT 238 K/MM3 (134-434); RBC 4.22 M/mm3 (3.60-5.2); RDW 19.2 % (11.6-15.6); WHITE BLOOD COUNT 7.9 K/mm3 (4.0-10.0)
[2018-07-12 08:05] LABS: ANION GAP 9 MMOL/L (8-16); BLOOD UREA NITROGEN 23 mg/dL (7-18); CALCIUM 8.6 mg/dL (8.5-10.1); CHLORIDE 106 mmol/L (98-107); CO2 27 mmol/L (21-32); GLUCOSE,RANDOM 101 mg/dL (74-106); POTASSIUM 3.7 mmol/L (3.5-5.1); SODIUM 142 mmol/L (136-145)
[2018-07-12 08:45] LABS: PLATELET ESTIMATE ADEQUATE
[2018-07-12] MEDS: amLODIPine BESYLATE 10 MG TABLET (FP) PO SCH (09:27)
[2018-07-12] MEDS: ASPIRIN 81 MG CHEWABLE TABLETS PO SCH (09:28)
[2018-07-12] MEDS ORDERED: FUROSEMIDE 40 MG TABLET (FP) PO SCH (10:00)
[2018-07-12] MEDS ORDERED: hydrALAZINE HCL 25 MG TABLET (FP) PO SCH (10:50)
--- NOTE | 2018-07-12 10:57 | PN ---
Progress Note (short form) - Note Progress Note: RENAL pt awake and alert no complaints wants to go home Last Vital Signs Temp Pulse Resp BP Pulse Ox 98.3 F 71 16 175/94 H 96 07/12/18 05:00 07/12/18 05:00 07/12/18 05:00 07/12/18 05:00 07/11/18 21:00 lungs decreased on right cvs s1s2 rr abd soft ext no edema neuro a+o X3 CBC, BMP 07/12/18 05:17 07/12/18 05:17 Current Medications Generic Name Dose Route Start Last Admin Trade Name Freq PRN Reason Stop Dose Admin Acetaminophen 325 mg 07/10/18 12:16 Tylenol - PO Q6H PRN PAIN 6-10 Amlodipine Besylate 10 mg 07/11/18 10:00 07/12/18 09:27 Norvasc - PO 10 mg DAILY JUANITO Administration Aspirin 81 mg 07/11/18 10:00 07/12/18 09:28 Asa - PO 81 mg DAILY JUANITO Administration Atorvastatin Calcium 20 mg 07/10/18 22:00 07/11/18 22:15 Lipitor - PO 20 mg HS JUANITO Administration Furosemide 80 mg 07/12/18 10:00 07/12/18 09:27 Lasix - PO 80 mg DAILY JUANITO Administration Heparin Sodium (Porcine) 5,000 unit 07/10/18 06:00 07/12/18 05:38 Heparin - SQ 5,000 unit TID JUANITO Administration Hydralazine HCl 50 mg 07/12/18 10:50 Apresoline - PO TID [facility] Insulin Aspart 1 vial 07/10/18 07:00 07/12/18 06:04 Novolog Vial Sliding Scale - SQ Not Given ACHS [facility] Protocol Metoprolol Succinate 100 mg 07/11/18 12:36 07/12/18 09:28 Toprol Xl - PO 100 mg DAILY JUANITO Administration Oxycodone HCl 5 mg 07/10/18 12:16 07/10/18 22:00 Roxicodone - PO 5 mg Q6H PRN Administration PAIN 6-10 Impression 1. CKD 2. CHF- probable diastolic dysfunction 3. PVD 4. HTN 5. CAD 6. COPD 7. Gout Plan continue diuretic another option would be to change amlodipine to nifedipine no objection to dc MV
--- NOTE | 2018-07-12 10:57 | PN ---
Progress Note, Physician Chief Complaint: Feel less SOB, BP is better controlled - Current Medication List Current Medications: Active Medications Acetaminophen (Tylenol -) 325 mg PO Q6H PRN PRN Reason: PAIN 6-10 Amlodipine Besylate (Norvasc -) 10 mg PO DAILY [facility] Last Admin: 07/12/18 09:27 Dose: 10 mg Aspirin (Asa -) 81 mg PO DAILY [facility] Last Admin: 07/12/18 09:28 Dose: 81 mg Atorvastatin Calcium (Lipitor -) 20 mg PO HS [facility] Last Admin: 07/11/18 22:15 Dose: 20 mg Furosemide (Lasix -) 80 mg PO DAILY [facility] Last Admin: 07/12/18 09:27 Dose: 80 mg Heparin Sodium (Porcine) (Heparin -) 5,000 unit SQ TID [facility] Last Admin: 07/12/18 05:38 Dose: 5,000 unit Hydralazine HCl (Apresoline -) 50 mg PO TID [facility] Insulin Aspart (Novolog Vial Sliding Scale -) 1 vial SQ ACHS [facility]; Protocol Last Admin: 07/12/18 06:04 Dose: Not Given Metoprolol Succinate (Toprol Xl -) 100 mg PO DAILY [facility] Last Admin: 07/12/18 09:28 Dose: 100 mg Oxycodone HCl (Roxicodone -) 5 mg PO Q6H PRN PRN Reason: PAIN 6-10 Last Admin: 07/10/18 22:00 Dose: 5 mg - Objective Vital Signs: Vital Signs Temperature 98.3 F 07/12/18 05:00 Pulse Rate 71 07/12/18 05:00 Respiratory Rate 16 07/12/18 05:00 Blood Pressure 175/94 H 07/12/18 05:00 O2 Sat by Pulse Oximetry (%) 96 07/11/18 21:00 Constitutional: Y Well Nourished, No Distress, Calm HEENT: Yes: WNL, Conjunctiva Clear, EOM Intact Neck: WNL, Supple, Trachea Midline Cardiovascular: Yes: Regular Rate and Rhythm, S1, S2. No: JVD, Murmur Respiratory: + Regular, Rales, no SOB Gastrointestinal: Normal Bowel Sounds, Soft Musculoskeletal: No: Back Pain, Joint Stiffness EXT:Edema: RUE: 1+, LLE: 1+ Peripheral Pulses: Left Doralis Pedis: 2+, Right Dorsalis Pedis: 2+ Neurological: Alert, Oriented, Cran Nerves II-XII Intact, .Motor Strength: WNL , LUE, LLE, RUE, RLE Labs: CBC, BMP 07/12/18 05:17 07/12/18 05:17 Problem List - Problems (1) SOB (shortness of breath) on exertion Assessment/Plan: Diastolic HF due to uncontrolled BP Optimize BP control switch to PO Lasix as per Renal recommendations Code(s): R06.02 - SHORTNESS OF BREATH (2) CKD (chronic kidney disease) stage 5, GFR less than 15 ml/min Assessment/Plan: CKD stage 5 GFR < 15 last no recent GFR is available will F/U with her Neurologist Dr Hsu , Renal Diet, IP/Op chart F/U BMP Code(s): N18.5 - CHRONIC KIDNEY DISEASE, STAGE 5 (3) HTN (hypertension) Assessment/Plan: Better controlled on Amlodipine 10, Metoprolol 100 XL will Increse Hydralazine to 50 mg TID Code(s): I10 - ESSENTIAL (PRIMARY) HYPERTENSION (4) Anemia Assessment/Plan: H/H Due to CKD F/U anemia W/U Code(s): D64.9 - ANEMIA, UNSPECIFIED (5) Hypokalemia Assessment/Plan: Replete PO KCL 40 m Eq F/U BMP Code(s): E87.6 - HYPOKALEMIA (6) CHF (congestive heart failure), NYHA class III Assessment/Plan: Patient present with SOB, CHEATHAM and orthopnea elevated BNT improved after IV Lasix will F/U ECHO no base line ECHO is available. Code(s): I50.9 - HEART FAILURE, UNSPECIFIED (7) CAD (coronary artery disease) Code(s): I25.10 - ATHSCL HEART DISEASE OF [place] CORONARY ARTERY W/O ANG PCTRS (8) Gout Assessment/Plan: not on uricosuric will F/U Uric aci Code(s): M10.9 - GOUT, UNSPECIFIED
[2018-07-12] MEDS ORDERED: NIFEdipine E.R. 30 MG TABLET (FP) PO ONE (13:00)
[2018-07-12 14:57] VITALS: BP 155/107; PULSE 67; TEMP 98.7
--- NOTE | 2018-07-12 15:13 | DS ---
Physical Examination Vital Signs: Vital Signs Temperature 98.7 F 07/12/18 14:56 Pulse Rate 67 07/12/18 14:56 Respiratory Rate 18 07/12/18 14:56 Blood Pressure 142/92 07/12/18 14:56 O2 Sat by Pulse Oximetry (%) 98 07/12/18 09:00 Constitutional: Well Nourished, No Distress, Calm HEENT: Yes: WNL, Conjunctiva Clear, EOM Intact Neck: WNL, Supple, Trachea Midline Cardiovascular: Yes: Regular Rate and Rhythm, S1, S2. No: JVD, Murmur Respiratory: + Regular, Rales, no SOB Gastrointestinal: Normal Bowel Sounds, Soft Musculoskeletal: No: Back Pain, Joint Stiffness EXT:Edema: RUE: 1+, LLE: 1+ Peripheral Pulses: Left Doralis Pedis: 2+, Right Dorsalis Pedis: 2+ Neurological: Alert, Oriented, Cran Nerves II-XII Intact, .Motor Strength: WNL , LUE, LLE, RUE, RLE Labs: CBC, BMP 07/12/18 05:17 07/12/18 05:17 CBC,CMP WBC 7.9 K/mm3 (4.0-10.0) 07/12/18 05:17 RBC 4.22 M/mm3 (3.60-5.2) 07/12/18 05:17 Hgb 9.9 GM/dL (10.7-15.3) L 07/12/18 05:17 Hct 30.7 % (32.4-45.2) L 07/12/18 05:17 MCV 72.8 fl (80-96) L 07/12/18 05:17 MCH 23.5 pg (25.7-33.7) L 07/12/18 05:17 MCHC 32.3 g/dl (32.0-36.0) 07/12/18 05:17 RDW 19.2 % (11.6-15.6) H 07/12/18 05:17 Plt Count 238 K/MM3 (134-434) 07/12/18 05:17 MPV 8.8 fl (7.5-11.1) 07/12/18 05:17 Absolute Neuts (auto) 1.4 K/mm3 (1.5-8.0) L 07/12/18 05:17 Neutrophils % 17.5 % (42.8-82.8) L D 07/12/18 05:17 Neutrophils % (Manual) 46.0 % (42.8-82.8) 07/12/18 05:17 Band Neutrophils % 1.0 % 07/12/18 05:17 Lymphocytes % 41.2 % (8-40) H D 07/12/18 05:17 Lymphocytes % (Manual) 48.0 % (8-40) H 07/12/18 05:17 Monocytes % 36.3 % (3.8-10.2) H D 07/12/18 05:17 Monocytes % (Manual) 3 % (3.8-10.2) L 07/12/18 05:17 Eosinophils % 5.0 % (0-4.5) H 07/12/18 05:17 Eosinophils % (Manual) 2.0 % (0-4.5) 07/12/18 05:17 Basophils % 0.0 % (0-2.0) 07/12/18 05:17 Basophils % (Manual) 0.0 % (0-2.0) 07/12/18 05:17 Nucleated RBC % 0 % (0-0) 07/12/18 05:17 Platelet Estimate Adequate 07/12/18 05:17 Platelet Comment Few lg.plts 07/12/18 05:17 Retic Count 1.81 % (0.5-1.5) H 07/10/18 06:30 Sodium 142 mmol/L (136-145) 07/12/18 05:17 Potassium 3.7 mmol/L (3.5-5.1) 07/12/18 05:17 Chloride 106 mmol/L (98-107) 07/12/18 05:17 Carbon Dioxide 27 mmol/L (21-32) 07/12/18 05:17 Anion Gap 9 MMOL/L (8-16) 07/12/18 05:17 BUN 23 mg/dL (7-18) H 07/12/18 05:17 Creatinine 4.0 mg/dL (0.55-1.3) H 07/12/18 05:17 Creat Clearance w eGFR 11.38 (>60) 07/12/18 05:17 POC Glucometer 100 UNITS (80-120) 07/11/18 22:17 Random Glucose 101 mg/dL (74-106) 07/12/18 05:17 Hemoglobin A1c % 6.0 % (4.2-6.3) 07/10/18 06:30 Uric Acid 10.0 mg/dL (2.6-7.2) H 07/11/18 05:30 Calcium 8.6 mg/dL (8.5-10.1) 07/12/18 05:17 Phosphorus 3.5 mg/dL (2.5-4.9) 07/09/18 20:20 Magnesium 2.1 mg/dL (1.8-2.4) 07/11/18 05:30 Iron 26 ug/dL (27-139) L 07/10/18 06:30 TIBC 271 ug/dL (250-450) 07/10/18 06:30 Iron Saturation 10 % (15-55) L 07/10/18 06:30 Transferrin 203 mg/dL (200-370) 07/10/18 06:30 Ferritin 74.2 ng/ml (8-388) 07/10/18 06:30 Total Bilirubin 0.5 mg/dL (0.2-1) 07/11/18 05:30 AST 23 U/L (15-37) 07/11/18 05:30 ALT 18 U/L (13-61) 07/11/18 05:30 Alkaline Phosphatase 107 U/L (45-117) 07/11/18 05:30 Creatine Kinase 348 IU/L (26-192) H 07/09/18 20:20 Creatine Kinase Index 0.7 % (0.0-5.0) 07/09/18 20:20 CK-MB (CK-2) 2.6 ng/mL (0.5-3.6) 07/09/18 20:20 Troponin I 0.02 ng/ml (0.00-0.05) 07/09/18 20:20 B-Natriuretic Peptide Cancelled 07/09/18 20:23 Total Protein 6.6 g/dl (6.4-8.2) 07/11/18 05:30 Albumin 2.6 g/dl (3.4-5.0) L 07/11/18 05:30 Triglycerides 117 mg/dL (0-150) 07/10/18 06:30 Cholesterol 150 mg/dL (50-200) 07/10/18 06:30 Total LDL Cholesterol 83 mg/dL (5-100) 07/10/18 06:30 HDL Cholesterol 56 mg/dL (40-60) 07/10/18 06:30 Vitamin B12 521 pg/ml (193-986) 07/11/18 05:30 Discharge Summary Reason For Visit: CONGESTIVE HEART FAILURE,HISTORY OF PERIPHERAL Current Active Problems Anemia (Acute) CAD (coronary artery disease) (Acute) CHF (congestive heart failure), NYHA class III (Acute) CKD (chronic kidney disease) stage 5, GFR less than 15 ml/min (Acute) Chest pain (Acute) Gout (Acute) HTN (hypertension) (Acute) Hypokalemia (Acute) SOB (shortness of breath) on exertion (Acute) Hospital Course: 62 year old woman with PMH of myocardial infarction, CAD with stent, EX T2DM not on any medications, CKD stge 5 COPD, gout, stent in the left lower leg (PAD ), and bronchitis presents to ER for cough, chest tightness and SOB for two days. She admits to exceptional shortness of breath, bilateral lower extremity swelling (left greater than right), Denies palpitations, hemoptysis, fevers, nausea, diarrhea, vomiting, abdominal pain, back pain, recent falls, dizziness or hormone use. In the ED w/u shows Pulmonary congestion , normal EKG and Troponin I , Patient BP was very uncontrolled due to poor complince, patient was put on IV Lasix , for 2 days Neurologist consulted recommended Lasix 80 mg Daily PO< BP REGIMEN CHANGED TO Optimize BP Control patient last BP was 144/62 with HR 65, no arrhythmias on Monitor, EKG NSR at 63, Trop I negative, no c/o chest pain, , LE Doppler no DVT , ECHO Normal valves EF 50-60%, Patient is evaluated by Direct Response Consultant and cleared to discharged home t F/U with his PMD and Neurologist. Condition: Stable - Instructions Referrals: Antwan Stovall [Non Staff, Medical] - 1 Week Jon Arriaza MD [Staff Physician] - 1 Week Disposition: HOME - Home Medications Comprehensive Discharge Medication List: Ambulatory Orders Aspirin [ASA -] 81 mg PO DAILY 09/04/12 Metoprolol Succinate [Toprol XL -] 50 mg PO DAILY 09/04/12 Simvastatin [Zocor -] 40 mg PO DAILY 09/04/12 predniSONE [Deltasone -] 40 mg PO DAILY #8 tablet 04/26/16 Oxycodone HCl/Acetaminophen [Percocet 5-325 mg Tablet] 1 tab PO Q6H PRN #10 tablet MDD 4 04/27/16 Furosemide [Lasix -] 80 mg PO DAILY #15 tablet 07/12/18 Metoprolol Succinate [Toprol XL -] 100 mg PO DAILY #30 tab.sr.24h 07/12/18 Nifedipine ER [Procardia XL -] 90 mg PO DAILY #30 tab.er.24 07/12/18 hydrALAZINE HCL [Apresoline -] 50 mg PO TID #90 tablet 07/12/18
[2018-07-13] MEDS ORDERED: NIFEdipine E.R. 90 MG TABLET (FP) PO SCH (10:00)
== END 2018-07-12 15:38 | disposition home or self-care (01) | DRG 291 ==
LOC: JER 19:39 → JERBED 23:56 → J4W 07-11
PROVIDERS: ADMIT Internal Medicine; ATTEND Internal Medicine
DX: I13.2 Hypertensive heart and chronic kidney disease with heart failure and with stage 5 chronic kidney disease, or end stage renal disease (principal); I50.31 Acute diastolic (congestive) heart failure; Z68.41 Body mass index [BMI] 40.0-44.9, adult; N18.5 Chronic kidney disease, stage 5; I25.10 Atherosclerotic heart disease of native coronary artery without angina pectoris; I25.2 Old myocardial infarction; J44.9 Chronic obstructive pulmonary disease, unspecified; M10.9 Gout, unspecified; E78.00 Pure hypercholesterolemia, unspecified; F17.210 Nicotine dependence, cigarettes, uncomplicated; E88.09 Other disorders of plasma-protein metabolism, not elsewhere classified; D64.9 Anemia, unspecified; E66.01 Morbid (severe) obesity due to excess calories; D63.8 Anemia in other chronic diseases classified elsewhere; E11.51 Type 2 diabetes mellitus with diabetic peripheral angiopathy without gangrene; K21.9 Gastro-esophageal reflux disease without esophagitis; E87.6 Hypokalemia; R32 Unspecified urinary incontinence; E11.22 Type 2 diabetes mellitus with diabetic chronic kidney disease
CPT/HCPCS: 36415; 71045-TC-FY; 80048; 80053; 80061; 81003; 81015; 82550; 82553; 82607; 82728; 82962; 83036; 83540; 83550; 83721; 83735; 83880; 84100; 84466; 84484; 84550; 85025; 85044; 87081; 90688; 90732; 93005; 93010; 93306-TC; 93970-TC; 99285-25; G0008; G0009; J1644

== ENCOUNTER 2019-02-13 01:45 | Inpatient (IN) | payer OTHER | END 2019-02-24 15:25 | disposition home or self-care (01) | LOC: J5S 02-16 00:20 → JER 01:45 → J5S 02-17 20:59 → JERBED 07:11 → J5S 10:53 ==

== ENCOUNTER 2019-03-05 22:42 | Inpatient (IN) | payer OTHER ==
--- NOTE | 2019-03-05 23:22 | PDOC ---
History of Present Illness - General Chief Complaint: Edema Stated Complaint: SWELLING Time Seen by Provider: 03/05/19 23:22 History Source: Patient Exam Limitations: No Limitations - History of Present Illness Initial Comments: 03/05/19 23:41 63 year old female with PMH HTN, HLD, CAD s/p PCI (2013), GERD, DM, CKD stage 4 , PVD s/p 1 extremity stent, COPD presented to ED for increasing diffuse body swelling x3 days. Pt admitted to SOB. Pt stated she feels the swelling is worst in her face/lower extremities. Pt denied chest pain, abdominal pain, nausea, vomiting, diarrhea, fever, chills. Pt reported burning pain to the bottom of her left foot x many months. Pt reported she believes she is currently taking Prednisone. Allergies: NKDA Past History - Past Medical History Allergies/Adverse Reactions: Allergies Allergy/AdvReac Type Severity Reaction Status Date / Time No Known Drug Allergies Allergy Verified 03/05/19 22:47 Home Medications: Ambulatory Orders Aspirin [ASA -] 81 mg PO DAILY 09/04/12 Simvastatin [Zocor -] 20 mg PO DAILY 09/04/12 Nifedipine ER [Procardia XL -] 90 mg PO DAILY #30 tab.er.24 07/12/18 hydrALAZINE HCL [Apresoline -] 50 mg PO TID #90 tablet 07/12/18 Albuterol 0.083% Nebulizer Mylene [Ventolin 0.083% Nebulizer Soln -] 1 amp NEB QID PRN #120 amp 02/24/19 Nebulizer and Compressor [Comp-Air Nebulizer System] 1 each QID PRN #1 each 02/24/19 Polyethylene Glycol 3350 [Miralax 119 gm Btl -] 17 gm PO TID #2 bottle 02/24/19 Pramipexole Dihydrochloride [Mirapex -] 0.5 mg PO DAILY@2000 #30 tablet Prednisone 10 mg PO ASDIR #42 tablet 02/24/19 Sennosides [Senna -] 2 tab PO HS #60 tablet 02/24/19 Simethicone [Mylicon -] 80 mg PO Q4HWA #180 tab.chew 02/24/19 Diltiazem HCl [Diltiazem 24Hr ER] 360 mg PO DAILY 03/06/19 Furosemide 80 mg PO DAILY 03/06/19 Isoniazid 300 mg PO DAILY 03/06/19 Metoprolol Succinate 100 mg PO DAILY 03/06/19 Pregabalin [Lyrica] 100 mg PO TID 03/06/19 Pyridoxine HCl (Vitamin B6) [Pyridoxine HCl] 50 mg PO DAILY 03/06/19 traMADol HCL [Ultram] 50 mg PO Q6H 03/06/19 Anemia: No Asthma: No Cancer: No Cardiac Disorders: No CVA: No COPD: Yes CHF: No Dementia: No Diabetes: No GI Disorders: No Disorders: No HTN: Yes Hypercholesterolemia: Yes Liver Disease: No Seizures: No Thyroid Disease: No - Surgical History Abdominal Surgery: Yes (ABD HERNIA: 12/14/12) Appendectomy: No Cardiac Surgery: No Cholecystectomy: No Lung Surgery: No Neurologic Surgery: No Orthopedic Surgery: No - Suicide/Smoking/Psychosocial Hx Smoking Status: Yes Smoking History: Never smoked Have you smoked in the past 12 months: Yes Number of Cigarettes Smoked Daily: 7 If you are a former smoker, when did you quit?: 7 months 'Breaking Loose' booklet given: 09/07/12 Hx Alcohol Use: No Drug/Substance Use Hx: Yes Substance Use Type: Marijuana Hx Substance Use Treatment: No Review of Systems - Review of Systems Able to Perform ROS?: Yes Comments:: 03/05/19 23:43 General: denied fever, chills, generalized weakness. HEENT: admitted to facial swelling. denied sore throat, rhinorrhea, ear pain. Heart: admitted to LE swelling. denied chest pain, palpitations, syncope, diaphoresis. Respiratory: admitted to shortness of breath, denied cough, sputum production, hemoptysis. Abdomen: admitted to abdominal distension. denied abdominal pain, nausea, vomiting, diarrhea, constipation, blood in stool. : denied dysuria, increased urinary frequency, hematuria, urinary incontinence , flank pain. Back: denied back pain. Musculoskeletal: admitted to foot pain, extremity swelling. denied joint swelling. Neurological: denied headache, dizziness, numbness, tingling, weakness. Skin: denied rash, laceration, abrasion.6 Is the patient limited Beninese proficient: Yes *Physical Exam - Vital Signs Last Vital Signs Temp Pulse Resp BP Pulse Ox 97.6 F 61 18 144/73 98 03/05/19 22:44 03/05/19 22:44 03/05/19 22:44 03/05/19 22:44 03/05/19 22:44 - Physical Exam Comments: 03/05/19 23:44 Constitutional: Well-nourished, Well-developed, appearing stated age. HEENT: head is normocephalic, atraumatic. EOMI. PERRLA. Neck: supple. Full ROM. Heart: regular rhythm. no murmurs, rubs or gallops. Lungs: bibasilar crackles. no wheezing. speaking full sentences. no labored breathing. Abdomen: soft, nontender. normal bowel sounds. no rebound, guarding, masses. Extremities: peripheral pulses intact. 2+ pitting edema to LLE. Neurological: CN 2-12 grossly intact. moves all four extremities. Psych: awake, alert, oriented x3. follows commands. answers questions appropriately. ED Treatment Course - LABORATORY CBC & Chemistry Diagram: 03/08/19 05:35 03/08/19 05:35 Medical Decision Making - Medical Decision Making 03/05/19 23:44 63 year old female with above PMH presented to ED for diffuse swelling x3 days, worst in face and B/L LE. Left sided pitting edema, bibasilar crackles on examination. Initial Vital Signs Temp Pulse Resp BP Pulse Ox 97.6 F 61 18 144/73 98 03/05/19 22:44 03/05/19 22:44 03/05/19 22:44 03/05/19 22:44 03/05/19 22:44 Afebrile. No tachycardia. No tachypnea. Mild hypertension. No hypoxia on room air. Labs ordered: CBC, CMP, Troponin, BNP, TSH Medications ordered: Tylenol IV Imaging ordered: CXR, LE duplex US left EKG performed at 2325: rate 58, 1st degree AV block, normal axis, no acute ST changes. ECHO performed 07/10/18 - LVEF 55-60% 03/06/19 00:01 CBC WBC 11.7 K/mm3 (4.0-10.0) H 03/05/19 23:28 RBC 3.47 M/mm3 (3.60-5.2) L 03/05/19 23:28 Hgb 8.2 GM/dL (10.7-15.3) L 03/05/19 23:28 Hct 25.8 % (32.4-45.2) L 03/05/19 23:28 MCV 74.4 fl (80-96) L 03/05/19 23:28 MCH 23.8 pg (25.7-33.7) L 03/05/19 23:28 MCHC 31.9 g/dl (32.0-36.0) L 03/05/19 23:28 RDW 22.2 % (11.6-15.6) H 03/05/19 23:28 MPV 8.9 fl (7.5-11.1) 03/05/19 23:28 Absolute Neuts (auto) 10.9 K/mm3 (1.5-8.0) H 03/05/19 23:28 Neutrophils % 93.8 % (42.8-82.8) H 03/05/19 23:28 Lymphocytes % 4.0 % (8-40) L D 03/05/19 23: Monocytes % 1.8 % (3.8-10.2) L 03/05/19 23: Eosinophils % 0.0 % (0-4.5) 03/05/19 23: Basophils % 0.4 % (0-2.0) 03/05/19 23: Nucleated RBC % 0 % (0-0) 03/05/19 23:28 Microcytic anemia. - At baseline Leukocytosis. 03/06/19 00:38 CMP Sodium 139 mmol/L (136-145) 03/05/19 23:28 Potassium 3.4 mmol/L (3.5-5.1) L 03/05/19 23:28 Chloride 103 mmol/L (98-107) 03/05/19 23:28 Carbon Dioxide 25 mmol/L (21-32) 03/05/19 23:28 Anion Gap 10 MMOL/L (8-16) 03/05/19 23:28 BUN 71.7 mg/dL (7-18) H 03/05/19 23:28 Creatinine 5.9 mg/dL (0.55-1.3) H 03/05/19 23:28 Est GFR (CKD-EPI)AfAm 8.18 03/05/19 23:28 Est GFR (CKD-EPI)NonAf 7.06 03/05/19 23:28 Random Glucose 171 mg/dL (74-106) H 03/05/19 23:28 Calcium 7.0 mg/dL (8.5-10.1) L 03/05/19 23:28 Total Bilirubin 0.4 mg/dL (0.2-1) 03/05/19 23:28 AST 31 U/L (15-37) 03/05/19 23:28 ALT 92 U/L (13-61) H 03/05/19 23:28 Alkaline Phosphatase 155 U/L (45-117) H 03/05/19 23:28 Troponin I 0.03 ng/ml (0.00-0.05) 03/05/19 23:28 B-Natriuretic Peptide 7943.7 pg/ml (5-125) H 03/05/19 23:28 Total Protein 6.3 g/dl (6.4-8.2) L 03/05/19 23:28 Albumin 2.8 g/dl (3.4-5.0) L 03/05/19 23:28 TSH 0.60 uIU/ml (0.358-3.74) 03/05/19 23:28 Mild hypokalemia - not clinically significant. Hypocalcemia ENMANUEL on CKD -Last Cr 5.0 Mild transaminitis. BNP elevation. TSH wnl. Medications ordered: Calcium carbonate 650 mg PO once, KCL 40 mEq PO once 03/06/19 01:31 Left LE US report: EXAM: VENOUS DUPLEX UNILATERAL. No evidence for DVT left lower extremity. 6.2 x 2.7 x 1.7 cm left popliteal cyst. 03/06/19 02:[address] Murrieta's read: cardiomegaly. sharp costophrenic angles. no infiltrate. -Pending CXR report. Pt to be admitted for shortness of breath, ansarca, ENMANUEL - CHF vs cushings vs ACS. No Lasix ordered, ENMANUEL on CKD. Will leave up to inpatient team/cardio/nephro. Pending admission. 03/08/19 20:28 Follow up: Official CXR report: Single view of the chest reveals a weak inspiration with chin artifact and congestive changes with prominent mediastinum. There is contrast in the bowel and an elevated right hemidiaphragm. Since 03/06/2019 at 0216 hours, the congestive changes have developed. Correlation recommended. *DC/Admit/Observation/Transfer Diagnosis at time of Disposition: Hypocalcemia, CHF (congestive heart failure), Anasarca, Dyspnea - Discharge Dispostion Condition at time of disposition: Stable Decision to Admit order: Yes - Referrals - Patient Instructions - Post Discharge Activity
[2019-03-05 23:49] LABS: BASO % 0.4 % (0-2.0); HEMATOCRIT 25.8 % (32.4-45.2); HEMOGLOBIN 8.2 GM/dL (10.7-15.3); MCH 23.8 pg (25.7-33.7); MCHC 31.9 g/dl (32.0-36.0); MEAN CELL VOLUME 74.4 fl (80-96); MEAN PLT VOLUME 8.9 fl (7.5-11.1); MONO % 1.8 % (3.8-10.2); NEUT % 93.8 % (42.8-82.8); RBC 3.47 M/mm3 (3.60-5.2); RDW 22.2 % (11.6-15.6); WHITE BLOOD COUNT 11.7 K/mm3 (4.0-10.0)
[2019-03-05] MEDS ORDERED: ACETAMINOPHEN INJECTION 100 ML IVPB ONE (23:49)
[2019-03-06 00:04] LABS: INR 0.98 (0.83-1.09); PROTHROMBIN TIME (PATIENT) 11.6 SEC (9.7-13.0)
[2019-03-06 00:07] LABS: ACTIVATED PTT 32.2 SECONDS (25.2-36.5)
[2019-03-06 00:34] LABS: ALBUMIN 2.8 g/dl (3.4-5.0); BILIRUBIN,TOTAL 0.4 mg/dL (0.2-1); BLOOD UREA NITROGEN 71.7 mg/dL (7-18); CREATININE 5.9 mg/dL (0.55-1.3); N-TERMINAL BNP 7943.7 pg/ml (5-125); POTASSIUM 3.4 mmol/L (3.5-5.1); TOT PROT 6.3 g/dl (6.4-8.2)
--- NOTE | 2019-03-06 00:47 | PDOC ---
Attending Attestation - Resident Resident Name: Kelly Feng - ED Attending Attestation I have performed the following: I have examined & evaluated the patient, The case was reviewed & discussed with the resident, I agree w/resident's findings & plan - [facility] HPI: 03/06/19 02:02 63 year old female with PMH HTN, HLD, CAD s/p PCI (2013), GERD, DM, CKD stage 4 , PVD s/p 1 extremity stent, COPD presented to ED for increasing diffuse body swelling x3 days. Pt stated she feels the swelling is worst in her face/lower extremities. Pt denied chest pain, shortness of breath, abdominal pain, nausea, vomiting, diarrhea, fever, chills. Pt reported burning pain to the bottom of her left foot x many months. Pt reported she believes she is currently taking Prednisone. - Physicial Exam PE: 03/06/19 03:01 Agree with the resident's HPI and PE as documented in the electronic medical record. NAD, sleeping neck supple. no respiratory distress, PITST x4, no focal neuro deficits. + peripheral edema. normal color for ethnicity, WWP. - Medical Decision Making 03/06/19 03:02 See HPI for details. Prior notes reviewed, including admissions, discharges and consultations. Vital signs reviewed, wnl. DDX medication effect, steroid effect, COPD, CHF, new onset cardiomyopathy, CAD , ACS, arrhythmia. anemia, electrolyte/metabolic derangements laboratory results and imaging reviewed, basic labs and lytes with baseline anemia and CKD CXR_cardiomegaly, no significant pulmonary congestion. Cardiac panel_neg trop, chronically elevated bnp. EKG sinus bradycardia at 58 bpm, no interval abnormalities, narrow QRS, ST and T wave segments and morphology normal. ED course: last echo in 06/2018 with normal ef Duplex here with peters's cyst to affected extremity. will need cardia stratification with sob/atypical angina sx and repeat echo if necessary for edema workup. no meds given here for diuresis, no prior home med and also with CKD so no effect with usual diuretics. admit for SOB workup, given multiple comorbidities, edema and r/o ACS 03/06/19 03:04
[2019-03-06 01:33] LABS: ANISOCYTOSIS 2+; MACROCYTOSIS 0; PLATELET ESTIMATE DECREASED
[2019-03-06 01:34] LABS: PLATELET COUNT 83 K/MM3 (134-434)
[2019-03-06] MEDS ORDERED: CALCIUM CARBONATE 650 MG TABLET PO ONE (01:55)
[2019-03-06] MEDS ORDERED: FUROSEMIDE 40 MG/4 ML INJECTABLE VIAL IVPUSH ONE (02:50)
[2019-03-06] MEDS ORDERED: POTASSIUM CHLORIDE TABS 20 MEQ TABLET.ER (FP) PO ONE (03:00)
[2019-03-06] MEDS ORDERED: ALBUTEROL SO4 2.5/IPRATROPIUM 0.5 INH SOL 3 ML VIAL.NEB. NEB ONE ×2 (03:21→03:32)
[2019-03-06] MEDS ORDERED: POTASSIUM CHLORIDE ORAL LIQUID 20 MEQ/15 ML ONE (03:55)
--- NOTE | 2019-03-06 04:06 | HP ---
Admitting History and Physical - Primary Care Physician PCP: Antwan Stovall - Admission Chief Complaint: Generalized Body Swelling, SOB History of Present Illness: This is a 63 y/o woman with a PMHx of HTN, HLD, CAD s/p PCI 2013, PVD s/p Stent , DM (no meds), CKD Stage 4, GERD, last admission 3 weeks ago- Pneumonia, COPD Exacerbation. Who presents to the ED with SOB, generalized swelling to her body and lower extremities x2 days, facial swelling x 1 day. Patient reports being on Prednisone since discharge but she was not taking it as prescribed. Patient came in with two pill bottles of Prednisone dated 02/11, 02/24. Patient also reports feeling "foggy", has had b/l leg weakness and a severe burning sensation to b/l feet. She reports failing due to her knees "giving out". she denies head trauma or LOC. Patient reports since last week having to use a walker due to her unsteady gait. Patient denies fever, chills, headache, CP, palpitations, AP, N/V/D, dysuria. History Source: Patient Limitations to Obtaining History: Poor Historian - Past Medical History Cardiovascular: Yes: CAD, HTN, Hyperlipdemia, Other (PAD). No: AFIB Pulmonary: Yes: COPD. No: O2 Dependent Renal/: Yes: Renal Inusuff Rheumatology: Yes: Gout - Smoking History Smoking history: Never smoked Have you smoked in the past 12 months: Yes Aproximately how many cigarettes per day: 7 If you are a former smoker, when did you quit?: 7 months - Alcohol/Substance Use Hx Alcohol Use: No History of Substance Use: reports: None Date of Last Use: 03/06/19 Home Medications - Allergies Allergies/Adverse Reactions: Allergies Allergy/AdvReac Type Severity Reaction Status Date / Time No Known Drug Allergies Allergy Verified 03/05/19 22:47 - Home Medications Home Medications: Ambulatory Orders Aspirin [ASA -] 81 mg PO DAILY 09/04/12 Simvastatin [Zocor -] 20 mg PO DAILY 09/04/12 Nifedipine ER [Procardia XL -] 90 mg PO DAILY #30 tab.er.24 07/12/18 hydrALAZINE HCL [Apresoline -] 50 mg PO TID #90 tablet 07/12/18 Albuterol 0.083% Nebulizer Mylene [Ventolin 0.083% Nebulizer Soln -] 1 amp NEB QID PRN #120 amp 02/24/19 Nebulizer and Compressor [Comp-Air Nebulizer System] 1 each QID PRN #1 each 02/24/19 Polyethylene Glycol 3350 [Miralax 119 gm Btl -] 17 gm PO TID #2 bottle 02/24/19 Pramipexole Dihydrochloride [Mirapex -] 0.5 mg PO DAILY@2000 #30 tablet Prednisone 10 mg PO ASDIR #42 tablet 02/24/19 Sennosides [Senna -] 2 tab PO HS #60 tablet 02/24/19 Simethicone [Mylicon -] 80 mg PO Q4HWA #180 tab.chew 02/24/19 Diltiazem HCl [Diltiazem 24Hr ER] 360 mg PO DAILY 03/06/19 Furosemide 80 mg PO DAILY 03/06/19 Isoniazid 300 mg PO DAILY 03/06/19 Metoprolol Succinate 100 mg PO DAILY 03/06/19 Pregabalin [Lyrica] 100 mg PO TID 03/06/19 Pyridoxine HCl (Vitamin B6) [Pyridoxine HCl] 50 mg PO DAILY 03/06/19 traMADol HCL [Ultram] 50 mg PO Q6H 03/06/19 Home Medications (free text): Isoniazid 300mg po daily. Prednisone 4 tabs po 3 days, 3 tabs po 3 days, 2 tabs po 3 days 1 tab po 3 days. Hydralazine 50mg po TID. Asa 81mg po daily. Rosuvastatin 20mg po QD. Prednsione 10mg po QD. Furosemide 80mg po Daily. Tramadol 50mg QID prn. Diltiazam 360mg Daily. Pyridootone 6 mg po Daily. Elipta Anwevo- 62.5/125mg Review of Systems - Review of Systems Constitutional: reports: Weakness Eyes: reports: No Symptoms HENT: reports: Other (facial swelling) Neck: reports: No Symptoms Cardiovascular: reports: Shortness of Breath Respiratory: reports: SOB, SOB on Exertion Gastrointestinal: reports: No Symptoms Genitourinary: reports: No Symptoms Breasts: reports: No Symptoms Reported Musculoskeletal: reports: Extremity Pain, Muscle Weakness Integumentary: reports: No Symptoms Neurological: reports: Unsteady Gait, Weakness Endocrine: reports: No Symptoms Hematology/Lymphatic: reports: No Symptoms Psychiatric: reports: No Symptoms Physical Examination Vital Signs: Vital Signs Temperature 97.5 F L 03/06/19 03:18 Pulse Rate 65 03/06/19 03:18 Respiratory Rate 18 03/05/19 22:44 Blood Pressure 158/77 03/06/19 03:18 O2 Sat by Pulse Oximetry (%) 100 03/06/19 03:51 Constitutional: Yes: Anxious, Mild Distress, Obese Eyes: Yes: WNL, Conjunctiva Clear, EOM Intact, PERRL HENT: Yes: Other (facial swelling duncan face) Neck: Yes: WNL, Supple, Trachea Midline Cardiovascular: Yes: Regular Rate and Rhythm, S1, S2 Respiratory: Yes: Wheezes Gastrointestinal: Yes: Normal Bowel Sounds, Soft, Abdomen, Obese Renal/: Yes: WNL Breast(s): Yes: WNL Musculoskeletal: Yes: WNL Extremities: Yes: WNL Edema: Yes Edema: LLE: 2+, RLE: 1+ Peripheral Pulses WNL: Yes Integumentary: Yes: WNL Neurological: Yes: WNL, Alert, Oriented, Cran Nerves II-XII Intact, Other (gait not observed) ...Motor Strength: WNL Psychiatric: Yes: WNL, Alert, Oriented Labs: CBC, BMP 03/05/19 23:28 03/05/19 23:28 Imaging - Results Chest X-ray: Image Reviewed Ultrasound: Report Reviewed, Image Reviewed EKG: Image Reviewed Problem List - Problems (1) Anasarca Assessment/Plan: Likely secondary to steroid use vs CKD Continue Cardiac monitoring Appreciate Cardiology consult Patient has CKD, will not use Lasix at present Appreciate Nephrology consult Monitor CBC, BMP EKG- reviewed Chest Xray image reviewed Code(s): R60.1 - GENERALIZED EDEMA (2) Cushings syndrome Assessment/Plan: Likely secondary to steroid use Appreciate Pulm Consult Monitor vitals (3) CHF (congestive heart failure) Assessment/Plan: BNP > 7000 Cardiac monitoring Cardiology consult Serial Enzymes EKG- SB with 1st degree AV block Chest Xray image- increased markings, cardiomegaly, awaiting official report Strict INOs Daily weights Continue home meds Code(s): I50.9 - HEART FAILURE, UNSPECIFIED (4) Lower extremity edema Assessment/Plan: r/o DVT Wells Score 2 Duplex LLE- neg DVT Elevate extremity Neurovascular checks Code(s): R60.0 - LOCALIZED EDEMA (5) COPD (chronic obstructive pulmonary disease) Assessment/Plan: stable Continue Ellipta Albuterol neb prn Appreciate Pulmonology consult O2 Code(s): J44.9 - CHRONIC OBSTRUCTIVE PULMONARY DISEASE, UNSPECIFIED (6) CKD (chronic kidney disease) Assessment/Plan: Cr 5.9 at baseline Appreciate Nephrology consult Monitor BMP Avoid Nephrotoxic drugs Code(s): N18.9 - CHRONIC KIDNEY DISEASE, UNSPECIFIED (7) Anemia Assessment/Plan: stable Hgb 8.6- at baseline Will transfuse if HGb < 7.0 Monitor CBC Continue home med Monitor vitals Code(s): D64.9 - ANEMIA, UNSPECIFIED (8) CAD (coronary artery disease) Assessment/Plan: stable Continue Asa, anti-HTN with parameters EKG- reviewed Chest Xray- pending Code(s): I25.10 - ATHSCL HEART DISEASE OF [place] CORONARY ARTERY W/O ANG PCTRS (9) HTN (hypertension) Assessment/Plan: stable Monitor BP Continue home meds with parameters Monitor renal function Code(s): I10 - ESSENTIAL (PRIMARY) HYPERTENSION (10) Leg weakness Assessment/Plan: Patient reports leg weakness with unsteady gait x 1 week Patient has history of neuropathy Appreciate Neurology consult Fall Precautions Neurovascular checks Monitor BMP Code(s): R29.898 - OTH SYMPTOMS AND SIGNS INVOLVING THE MUSCULOSKELETAL SYSTEM (11) Neuropathy Assessment/Plan: Sub optimal Continue Mirapex Code(s): G62.9 - POLYNEUROPATHY, UNSPECIFIED Assessment/Plan This is a 63 y/o woman admitted to Telemetry for CHF Exacerbation, Anasarca for further evaluation of their emergent condition. Plan: See Problem List FEN Fluid Restriction Replete lytes prn Low Na Diet DVT ppx OOB SCDs Heparin SQ Code Status: Full Code Dispo: Requires Inpatient Care Visit type - Emergency Visit Emergency Visit: Yes ED Registration Date: 03/05/19 Care time: The patient presented to the Emergency Department on the above date and was hospitalized for further evaluation of their emergent condition. - New Patient This patient is new to me today: Yes Date on this admission: 03/06/19 - Critical Care Critical Care patient: No
[2019-03-06] MEDS ORDERED: traMADol HCL 50 MG TABLET PO ONE (05:56)
[2019-03-06] MEDS: ALBUTEROL SO4 0.083% IH SOL 2.5 MG/3 ML VIAL.NEB. NEB PRN (07:07)
--- NOTE | 2019-03-06 08:40 | EKG ---
Test Reason : Blood Pressure : / mmHG Vent. Rate : 058 BPM Atrial Rate : 058 BPM P-R Int : 212 ms QRS Dur : 092 ms QT Int : 462 ms P-R-T Axes : 036 047 060 degrees QTc Int : 453 ms SINUS BRADYCARDIA WITH 1ST DEGREE A-V BLOCK POSSIBLE LEFT ATRIAL ENLARGEMENT BORDERLINE ECG WHEN COMPARED WITH ECG OF 22-FEB-2019 08:39, [place] INTERVAL HAS INCREASED Confirmed by MATILDE HOUSTON, BARTOLO ([id number]) on 03/06/2019 8:39:49 AM Referred By: Confirmed By:BARTOLO CLAYTON MD
--- NOTE | 2019-03-06 08:45 | PN ---
Progress Note, Physician Chief Complaint: Generalized swelling BLLE weakness Unsteady gait History of Present Illness: NAD c/o BLLE weakness, states she fell at home c/o burning BLL feet, unrelieved by lyrica, tramadol Was unable to MRI last admission due to SOB, wants to try it again To be seen by Neurology - Current Medication List Current Medications: Active Medications Albuterol Sulfate (Ventolin 0.083% Nebulizer Soln -) 1 amp NEB QID PRN PRN Reason: SHORT OF BREATH/WHEEZING Last Admin: 03/06/19 07:07 Dose: 1 amp Aspirin (Asa -) 81 mg PO DAILY JUANITO Atorvastatin Calcium (Lipitor -) 10 mg PO HS JUANITO Diltiazem HCl (Cardizem Cd -) 360 mg PO DAILY JUANITO Metoprolol Succinate (Toprol Xl -) 100 mg PO DAILY JUANITO Pramipexole Dihydrochloride (Mirapex -) 0.5 mg PO DAILY@2000 [facility] Umeclidinium/Vilanterol (Anoro Ellipta 62.5-25 Mcg Inh) 1 puff IH DAILY [facility] - Objective Vital Signs: Vital Signs Temperature 98.0 F 03/06/19 05:00 Pulse Rate 77 03/06/19 05:00 Respiratory Rate 20 03/06/19 05:00 Blood Pressure 159/87 03/06/19 05:00 O2 Sat by Pulse Oximetry (%) 98 03/06/19 05:00 Constitutional: Yes: Well Nourished, No Distress, Calm, Obese Cardiovascular: Yes: Regular Rate and Rhythm Respiratory: Yes: Regular Gastrointestinal: Yes: Normal Bowel Sounds, Soft, Abdomen, Obese Musculoskeletal: Yes: Muscle Weakness Extremities: Yes: WNL Edema: No Peripheral Pulses WNL: Yes Neurological: Yes: Alert, Oriented Psychiatric: Yes: Alert, Oriented Labs: CBC, BMP 03/05/19 23:28 03/05/19 23:28 INR, PTT INR 0.98 (0.83-1.09) 03/05/19 23:28 Problem List - Problems (1) Neuropathy Assessment/Plan: -Continue lyrica 100 mg po tid -Neurology consult -MRI L spine w/o contrast -Lidocaine gel 5% planter feet for symptomatic relief Code(s): G62.9 - POLYNEUROPATHY, UNSPECIFIED (2) CKD (chronic kidney disease) stage 5, GFR less than 15 ml/min Assessment/Plan: -Nephrology consult Code(s): N18.5 - CHRONIC KIDNEY DISEASE, STAGE 5 (3) COPD (chronic obstructive pulmonary disease) Assessment/Plan: -Bronchodilators PRN -Nasal O2 PRN Code(s): J44.9 - CHRONIC OBSTRUCTIVE PULMONARY DISEASE, UNSPECIFIED (4) Tremors of nervous system Assessment/Plan: -Premipexole Code(s): R25.1 - TREMOR, UNSPECIFIED (5) Anasarca Assessment/Plan: -2/2 to prednisone that she was on for COPD exacerbation Code(s): R60.1 - GENERALIZED EDEMA Assessment/Plan See problem list
[2019-03-06] MEDS ORDERED: traMADol HCL 50 MG TABLET PO SCH (09:45)
[2019-03-06] MEDS: ISONIAZID 300 MG TABLET (FP) PO SCH (10:58)
[2019-03-06] MEDS: PYRIDOXINE HCL (B-6) 50 MG TABLET (FP) PO SCH (10:58)
[2019-03-06] MEDS: UMECLIDINIUM/VILANTEROL (ANORO) 62.5/25 MCG INHALER IH SCH (10:58)
[2019-03-06] MEDS: NIFEdipine E.R. 90 MG TABLET (FP) PO SCH (10:58)
[2019-03-06] MEDS: ASPIRIN 81 MG CHEWABLE TABLETS PO SCH (10:58)
[2019-03-06] MEDS ORDERED: traMADol HCL 50 MG TABLET PO PRN (10:59)
[2019-03-06] MEDS ORDERED: LIDOCAINE HCL 5% TOP OINTMENT 50 GM TUBE TP PRN (11:00)
[2019-03-06] MEDS: SIMETHICONE 80 MG TAB.CHEW (FP) PO SCH ×3 (11:38→22:47)
[2019-03-06] MEDS ORDERED: PREGABALIN 100 MG CAPSULE PO ONE (12:00)
--- NOTE | 2019-03-06 12:35 | CON.CARD ---
Consult Consult Specialty:: Cardiology Referred by:: Dr. Watson Reason for Consultation:: CHF exacerbation, anasarca - History of Present Illness Chief Complaint: facial swelling, foot pain and unsteady gait History of Present Illness: 63 year old woman with a PMHx of HTN, HLD, GERD, CAD s/p PCI (2013), CKD Stage IV, PVD s/p 1 extremity stent, COPD, DM, undergoing evaluation for renal transplant at [facility], has been seen in our office for preop renal transplant evaluation. Echo 03/2018 showed Increased LVEF, mild valvular abnl and Nuclear stress test at that time showed Normal perfusion, she has had prior admissions for COPD and PNA, she is now admitted with c/o facial swelling, intermittent LE edema and generalized body edema, as well as LE weakness, burning of feet. She was seen and examined today in [facility]. She states she is feeling better today. states her LE edema resolves when in bed and is not present currently. Denies any sob, states she was wheezing earlier but resolved with nebulizers. states swelling has improved. No chest pain Echo 04/20/18: TDS, increased EF, FCDAOV, mild MR Nuclear Stress Test 04/06/18: normal perfusion. - History Source History Provided By: Patient Limitations to Obtaining History: No Limitations - Past Medical History Cardio/Vascular: Yes: CAD, HTN, Hyperlipdemia, Other (PAD). No: AFIB Pulmonary: Yes: COPD. No: O2 Dependent Renal/: Yes: Renal Inusuff Rheumatology: Yes: Gout - Alcohol/Substance Use Hx Alcohol Use: No - Smoking History Smoking history: Never smoked Have you smoked in the past 12 months: Yes Aproximately how many cigarettes per day: 7 If you are a former smoker, when did you quit?: 7 months Home Medications - Allergies Allergies/Adverse Reactions: Allergies Allergy/AdvReac Type Severity Reaction Status Date / Time No Known Drug Allergies Allergy Verified 03/05/19 22:47 - Home Medications Home Medications: Ambulatory Orders Aspirin [ASA -] 81 mg PO DAILY 09/04/12 Simvastatin [Zocor -] 20 mg PO DAILY 09/04/12 Nifedipine ER [Procardia XL -] 90 mg PO DAILY #30 tab.er.24 07/12/18 hydrALAZINE HCL [Apresoline -] 50 mg PO TID #90 tablet 07/12/18 Albuterol 0.083% Nebulizer Mylene [Ventolin 0.083% Nebulizer Soln -] 1 amp NEB QID PRN #120 amp 02/24/19 Nebulizer and Compressor [Comp-Air Nebulizer System] 1 each QID PRN #1 each 02/24/19 Polyethylene Glycol 3350 [Miralax 119 gm Btl -] 17 gm PO TID #2 bottle 02/24/19 Pramipexole Dihydrochloride [Mirapex -] 0.5 mg PO DAILY@2000 #30 tablet Prednisone 10 mg PO ASDIR #42 tablet 02/24/19 Sennosides [Senna -] 2 tab PO HS #60 tablet 02/24/19 Simethicone [Mylicon -] 80 mg PO Q4HWA #180 tab.chew 02/24/19 Diltiazem HCl [Diltiazem 24Hr ER] 360 mg PO DAILY 03/06/19 Furosemide 80 mg PO DAILY 03/06/19 Isoniazid 300 mg PO DAILY 03/06/19 Metoprolol Succinate 100 mg PO DAILY 03/06/19 Pregabalin [Lyrica] 100 mg PO TID 03/06/19 Pyridoxine HCl (Vitamin B6) [Pyridoxine HCl] 50 mg PO DAILY 03/06/19 traMADol HCL [Ultram] 50 mg PO Q6H 03/06/19 Family Disease History - Family Disease History Family History: Denies Review of Systems - Review of Systems Constitutional: denies: No Symptoms, Chills, Diaphoresis, Fever, Lethargy, Loss of Appetite, Malaise, Night Sweats, Unintentional Wgt. Loss, Weakness, Other Eyes: denies: No Symptoms, Blind Spots, Blurred Vision, Double Vision, Eye Pain , Floaters, Photophobia, Recent Change in Vision, Other HENT: denies: No Symptoms, Difficult Swallowing, Ear Discharge, Ear Pain, Epistaxis, Gingival Bleeding, Hearing Loss, Mouth Swelling, Nasal Congestion, Ocular Prosthesis, Throat Pain, Toothache, Ringing in Ears, Other Neck: denies: No Symptoms, Decreased ROM, Lumps, Pain on Movement, Stiffness, Swollen Glands, Tenderness, Other Cardiovascular: reports: Edema, Shortness of Breath. denies: No Symptoms, Chest Pain, Palpitations, Other Respiratory: denies: No Symptoms, Cough, Exercise Intolerance, Hemoptysis, Orthopnea, PND, Snoring, SOB, SOB on Exertion, Wheezing, Other Gastrointestinal: denies: No Symptoms, Abdominal Pain, Bloating, Constipation, Diarrhea, Dysphagia, Indigestion, Melena, Nausea, Rectal Bleeding, Vomiting, Vomiting Blood, Other Genitourinary: denies: No Symptoms, Burning, Discharge, Dysuria, Flank Pain, Frequency, Hematuria, Incontinence, Lesions, Menses, Pain, Testicular Mass, Testicular Pain, Testicular Swelling, Urgency, Vaginal Bleeding, Other Breasts: denies: No Symptoms Reported, See HPI, Breast Implants, Discharge from Nipple, Lumps, Pain, Skin Changes, Other Musculoskeletal: reports: Extremity Pain. denies: No Symptoms, Back Pain, Crepitus, Decreased ROM, Joint Pain, Joint Swelling, Muscle Pain, Muscle Cramps , Muscle Weakness, Other Integumentary: denies: No Symptoms, Blister, Bruising, Change in Color, Eczema, Erythema, Incision, Lesions, Lump, Pallor, Pruritis, Rash, Wound, Other Neurological: reports: Numbness, Parasthesia, Weakness. denies: No Symptoms, Change in LOC, Change in Speech, Confusion, Dizziness, Headache, Incoordination , Pre-Existing Deficit, Seizure, Syncope, Tremors, Unsteady Gait, Other Endocrine: denies: No Symptoms, Excessive Sweating, Flushing, Increased Hunger, Increased Thirst, Intolerance to Cold, Intolerance to Heat, Unexplained Weight Gain, Unexplained Weight Loss, Other Hematology/Lymphatic: denies: No Symptoms, Easily Bruised, Excessive Bleeding, Swollen Glands, Other Psychiatric: denies: No Symptoms, Altered Sleep Pattern, Anxiety, Depression, Hallucinations, Panic, Paranoia, Suicidal, Other - Risk Factors Known Risk Factors: Yes: Age, Diabetes Mellitus, Hypercholesterolemia, Hypertension Vital Signs: Vital Signs Temperature 97.8 F 03/06/19 09:00 Pulse Rate 67 03/06/19 09:00 Respiratory Rate 20 03/06/19 09:00 Blood Pressure 144/83 03/06/19 09:00 O2 Sat by Pulse Oximetry (%) 98 03/06/19 09:00 Constitutional: Yes: No Distress, Calm Eyes: Yes: Conjunctiva Clear, EOM Intact, PERRL HENT: Yes: Atraumatic, Normocephalic Neck: Yes: Supple, Trachea Midline Respiratory: Yes: Regular, Wheezes. No: Rales, Rhonchi, SOB Gastrointestinal: Yes: Normal Bowel Sounds, Soft. No: Distention, Tenderness Cardiovascular: Yes: Regular Rate and Rhythm. No: Bradycardia, Tachycardia, Pulse Irregular, Gallop, Rub, Varicosities JVD: No Carotid Bruit: No PMI: Non-Displaced Heart Sounds: Yes: S1, S2. No: Split S2, S3, S4, Clicks, Gallop, Rub, Bruit Murmur: No: Systolic Murmur, Diastolic Murmur Musculoskeletal: Yes: WNL Extremities: Yes: WNL Edema: No Peripheral Pulses WNL: Yes Neurological: Yes: Alert, Oriented Psychiatric: Yes: Alert, Oriented - Other Data Labs, Other Data: CBC, BMP 03/05/19 23:28 03/05/19 23:28 INR, PTT INR 0.98 (0.83-1.09) 03/05/19 23:28 Troponin, BNP 03/05/19 03/06/19 23:28 03:30 Troponin I 0.03 0.02 B-Natriuretic Peptide 7943.7 H Troponin, BNP 03/05/19 03/06/19 23:28 03:30 Troponin I 0.03 0.02 B-Natriuretic Peptide 7943.7 H SB 1st deg AVB 58bpm, LAE Echo: Report Reviewed Imaging - Results Chest X-ray: Report Reviewed, Image Reviewed EKG: Report Reviewed, Image Reviewed Other: Report Reviewed, Image Reviewed (tele-nsr, occ isolated PVC, no sig arrhythmias) Assessment/Plan 63 year old woman with a PMHx of HTN, HLD, GERD, CAD s/p PCI (2013), CKD Stage IV, PVD s/p 1 extremity stent, COPD, DM, undergoing evaluation for renal transplant at [facility], has been seen in our office for preop renal transplant evaluation. Echo 03/2018 showed Increased LVEF, mild valvular abnl and Nuclear stress test at that time showed Normal perfusion, she has had prior admissions for COPD and PNA, she is now admitted with c/o facial swelling, intermittent LE edema and generalized body edema, as well as LE weakness, burning of feet. She states she is feeling better today. states her LE edema resolves when in bed and is not present currently. Denies any sob, states she was wheezing earlier but resolved with nebulizers. states swelling has improved. No chest pain Swelling-not c/w CHF -no current LE edema, no pulm edema, no sob except for mild wheezing for which nebulizers resolved symptoms -likely in part due to steroid use as outpatient -Echo 04/20/18: TDS, increased EF, FCDAOV, mild MR -Nuclear Stress Test 04/06/18: normal perfusion. -Please discontinue telemetry -No additional inpatient cardiac work up is needed at this time -pt should follow up in the office as outpatient for preoperative cardiac risk evaluation prior to renal transplant -advised her to call for fup with the transplant team
--- NOTE | 2019-03-06 12:40 | CONSULT ---
Consult Consult Specialty:: Nephrology Reason for Consultation:: CKD - History of Present Illness Chief Complaint: lower ext edema History of Present Illness: Pt is a 63 year old female who presents to the ER complaining of increasing edema. She was recently discharged from the hospital. She was on lasix as outpt. She feels that the edema is better today. She denies dysuria or hematuria. She denies shortness of breath or palpitations. She is on prednisone still. She has history of CKD. She is under transplant eval and says that she has a living donor. - History Source History Provided By: Patient, Medical Record - Past Medical History Cardio/Vascular: Yes: CAD, HTN, Hyperlipdemia, Other (PAD). No: AFIB Pulmonary: Yes: COPD. No: O2 Dependent Renal/: Yes: Renal Inusuff Rheumatology: Yes: Gout - Alcohol/Substance Use Hx Alcohol Use: No - Smoking History Smoking history: Never smoked Have you smoked in the past 12 months: Yes Aproximately how many cigarettes per day: 7 If you are a former smoker, when did you quit?: 7 months Home Medications - Allergies Allergies/Adverse Reactions: Allergies Allergy/AdvReac Type Severity Reaction Status Date / Time No Known Drug Allergies Allergy Verified 03/05/19 22:47 - Home Medications Home Medications: Ambulatory Orders Aspirin [ASA -] 81 mg PO DAILY 09/04/12 Simvastatin [Zocor -] 20 mg PO DAILY 09/04/12 Nifedipine ER [Procardia XL -] 90 mg PO DAILY #30 tab.er.24 07/12/18 hydrALAZINE HCL [Apresoline -] 50 mg PO TID #90 tablet 07/12/18 Albuterol 0.083% Nebulizer Mylene [Ventolin 0.083% Nebulizer Soln -] 1 amp NEB QID PRN #120 amp 02/24/19 Nebulizer and Compressor [Comp-Air Nebulizer System] 1 each QID PRN #1 each 02/24/19 Polyethylene Glycol 3350 [Miralax 119 gm Btl -] 17 gm PO TID #2 bottle 02/24/19 Pramipexole Dihydrochloride [Mirapex -] 0.5 mg PO DAILY@2000 #30 tablet Prednisone 10 mg PO ASDIR #42 tablet 02/24/19 Sennosides [Senna -] 2 tab PO HS #60 tablet 02/24/19 Simethicone [Mylicon -] 80 mg PO Q4HWA #180 tab.chew 02/24/19 Diltiazem HCl [Diltiazem 24Hr ER] 360 mg PO DAILY 03/06/19 Furosemide 80 mg PO DAILY 03/06/19 Isoniazid 300 mg PO DAILY 03/06/19 Metoprolol Succinate 100 mg PO DAILY 03/06/19 Pregabalin [Lyrica] 100 mg PO TID 03/06/19 Pyridoxine HCl (Vitamin B6) [Pyridoxine HCl] 50 mg PO DAILY 03/06/19 traMADol HCL [Ultram] 50 mg PO Q6H 03/06/19 Family Disease History - Family Disease History Family History: Denies Review of Systems - Review of Systems Constitutional: reports: Malaise Eyes: reports: No Symptoms HENT: reports: No Symptoms Neck: reports: No Symptoms Cardiovascular: reports: Edema Respiratory: reports: SOB on Exertion Gastrointestinal: reports: No Symptoms Genitourinary: reports: No Symptoms Musculoskeletal: reports: No Symptoms Integumentary: reports: No Symptoms Neurological: reports: No Symptoms Endocrine: reports: No Symptoms Hematology/Lymphatic: reports: No Symptoms Psychiatric: reports: No Symptoms Physical Exam Vital Signs: Vital Signs Temperature 97.8 F 03/06/19 09:00 Pulse Rate 67 03/06/19 09:00 Respiratory Rate 20 03/06/19 09:00 Blood Pressure 144/83 03/06/19 09:00 O2 Sat by Pulse Oximetry (%) 98 03/06/19 09:00 Constitutional: Yes: Calm Eyes: Yes: Conjunctiva Clear HENT: Yes: Atraumatic Neck: Yes: Supple Cardiovascular: Yes: S1, S2 Respiratory: Yes: CTA Bilaterally Gastrointestinal: Yes: Soft Renal/: Yes: WNL Edema: Yes Edema: LLE: 1+, RLE: 1+ Neurological: Yes: Oriented Psychiatric: Yes: Oriented Labs: CBC, BMP 03/05/19 23:28 03/05/19 23:28 Laboratory Tests 03/05/19 03/05/19 23:28 23:28 WBC 11.7 H Hgb 8.2 L Sodium 139 Potassium 3.4 L Anion Gap 10 BUN 71.7 H Creatinine 5.9 H Imaging - Results Chest X-ray: Report Reviewed Problem List - Problems (1) Anasarca Code(s): R60.1 - GENERALIZED EDEMA (2) CHF (congestive heart failure) Code(s): I50.9 - HEART FAILURE, UNSPECIFIED Assessment/Plan Current Medications Generic Name Dose Route Start Last Admin Trade Name Freq PRN Reason Stop Dose Admin Albuterol Sulfate 1 amp 03/06/19 05:48 03/06/19 07:07 Ventolin 0.083% Nebulizer Soln - NEB 1 amp QID PRN Administration SHORT OF BREATH/WHEEZING Aspirin 81 mg 03/06/19 10:00 03/06/19 10:58 Asa - PO 81 mg DAILY JUANITO Administration Atorvastatin Calcium 10 mg 03/06/19 22:00 Lipitor - PO HS [facility] Diltiazem HCl 360 mg 03/06/19 10:00 03/06/19 10:58 Cardizem Cd - PO 360 mg DAILY JUANITO Administration Hydralazine HCl 50 mg 03/06/19 14:00 Apresoline - PO TID JUANITO Isoniazid 300 mg 03/06/19 10:00 03/06/19 10:58 Inh - PO 300 mg DAILY JUANITO Administration Lidocaine HCl 1 applic 03/06/19 11:00 Xylocaine 5% Top. Ointment TP TID PRN neuropathy Metoprolol Succinate 100 mg 03/06/19 10:00 03/06/19 10:58 Toprol Xl - PO 100 mg DAILY JUANITO Administration Nifedipine 90 mg 03/06/19 10:00 03/06/19 10:58 Procardia Xl - PO 90 mg DAILY JUANITO Administration Polyethylene Glycol 17 gm 03/06/19 14:00 Miralax (For Daily Use) - PO TID [facility]O Pramipexole Dihydrochloride 0.5 mg 03/06/19 20:00 Mirapex - PO DAILY@1999 [facility] Pramipexole Dihydrochloride 0.5 mg 03/06/19 20:00 Mirapex - PO DAILY@1999 [facility] Pregabalin 100 mg 03/06/19 11:02 Lyrica - PO TID [facility] Pyridoxine HCl 50 mg 03/06/19 10:00 03/06/19 10:58 Vitamin B6 - PO 50 mg DAILY JUANITO Administration Senna 2 tab 03/06/19 22:00 Senna - PO HS [facility] Simethicone 80 mg 03/06/19 10:00 03/06/19 11:38 Mylicon - PO 80 mg Q4HWA [facility] Administration Tramadol HCl 50 mg 03/06/19 10:59 03/06/19 11:38 Ultram - PO 50 mg Q6H PRN Administration PAIN LEVEL 6-10 Umeclidinium/Vilanterol 1 puff 03/06/19 10:00 03/06/19 10:58 Anoro Ellipta 62.5-25 Mcg Inh IH 1 puff DAILY JUANITO Administration Impression 1. CKD 2. CHF 3. PVD 4. HTN 5. CAD 6. COPD 7. Gout 8. constipation 9. anemia Plan - check bmp - will evaluate for more diuretics in am - pt to continue transplant eval after discharge - steroids may have contributed to fluid retention - will follow - start iron
[2019-03-06] MEDS ORDERED: hydrALAZINE HCL 50 MG TABLET (FP) PO SCH (14:00)
[2019-03-06] MEDS ORDERED: PREGABALIN 100 MG CAPSULE PO SCH (14:00)
[2019-03-06] MEDS: FERROUS SO4 325 MG TABLET (FP) PO SCH (14:59)
[2019-03-06] MEDS: POLYETHYLENE GLYCOL 3350 119 GM BTL PO SCH ×2 (15:01→22:45)
[2019-03-06] MEDS: PREGABALIN 100 MG CAPSULE PO SCH (15:27)
[2019-03-06] MEDS ORDERED: SODIUM CHLORIDE 0.9% 500 ML INFUS.BAG IV ONE (17:34)
--- NOTE | 2019-03-06 19:00 | HOSP ---
Physical Examination Vital Signs: Vital Signs Temperature 97.8 F 03/06/19 17:00 Pulse Rate 47 L 03/06/19 17:00 Respiratory Rate 20 03/06/19 17:00 Blood Pressure 93/44 L 03/06/19 17:00 O2 Sat by Pulse Oximetry (%) 98 03/06/19 09:00 Labs: CBC, BMP 03/05/19 23:28 03/05/19 23:28 Hospitalist Encounter Assessment: Notified by RN that patient was hypotensive when she came back from radiology. SBP 90's . Given cardiac history and recent edema 500cc NS bolus slowly was initiated. After examining patient and talking wiht her she admitted to self medicating with tramadol 150mg of her own. Medication bag gievn to son to take home. Patient mentating and is responding to fluid bolus. Will hold any due BP medications tonight and no further tramadol today. Instructed patient to allow nurses to give all medications.
[2019-03-06] MEDS ORDERED: SODIUM CHLORIDE 250 ML IV STA (22:05)
[2019-03-06] MEDS: SENNOSIDES 8.6MG TABLET (FP) PO SCH (22:45)
[2019-03-06] MEDS: PRAMIPEXOLE DIHYDROCHLORIDE 0.5 MG TABLET PO SCH (22:45)
[2019-03-06] MEDS: ATORVASTATIN CA 10 MG TABLET (FP) PO SCH (22:45)
[2019-03-06] MEDS ORDERED: NALOXONE HCL 0.4 MG/ML VIAL IVPUSH ONE (22:51)
[2019-03-06] MEDS ORDERED: DEXAMETHASONE 0.5 MG TABLET PO ONE (23:00)
--- NOTE | 2019-03-06 23:04 | HOSP ---
Subjective - Review of Symptoms Events since last encounter: Hospitalist Encounter Notified by the primary RN that the patient reports feeling dizzy and the BP 70/ 56, HR 57. Per nursing records, patient self medicated this am with 3 tablets of Tramadol 50mg. Patient was given Lyrica 100mg and Tramadol 50mg by the RN. Subjective: Arrived to bedside patient is awake, alert to name, , some confusion to place. Patient is tearful, reports feeling dizzy. Patient denies CP, palpitations, SOB, abdominal pain. PE performed see EMR This is a 63 y/o woman with a PMHx of HTN, HLD, CAD s/p PCI 2013, PVD s/p Stent , DM (no meds), CKD Stage 4, GERD, last admission 3 weeks ago- Pneumonia, COPD Exacerbation. Admitted to Telemetry for Anasarca secondary to Prednisone use, CHF Exacerabtion, Acute on Chronic CKD. Plan: NS bolus EKG BP Q15 min RN to notify Poison Control Probable transfer to ICU, will discuss case with ICU resident Hold pain and neuropathic meds. Neurological: Yes: Weakness, Other (Dizziness) Physical Examination Vital Signs: Vital Signs Temperature 97.8 F 03/06/19 17:00 Pulse Rate 47 L 03/06/19 17:00 Respiratory Rate 20 03/06/19 17:00 Blood Pressure 93/44 L 03/06/19 17:00 O2 Sat by Pulse Oximetry (%) 98 03/06/19 09:00 Constitutional: Yes: Anxious, Mild Distress, Obese Eyes: Yes: Conjunctiva Clear, EOM Intact, PERRL HENT: Yes: Atraumatic, Normocephalic, Other (facial edema) Neck: Yes: WNL, Supple, Trachea Midline Cardiovascular: Yes: Bradycardia, S1, S2. No: Gallop, Murmur, Rub Respiratory: Yes: Diminished (bases) Gastrointestinal: Yes: Normal Bowel Sounds, Soft, Abdomen, Obese Breast(s): Yes: WNL Musculoskeletal: Yes: Back Pain Edema: Yes Edema: LLE: 2+ Peripheral Pulses WNL: Yes Neurological: Yes: Confusion, Cran Nerves II-XII Intact Labs: CBC, BMP 03/05/19 23:28 03/05/19 23:28 Laboratory Results - last 24 hr 03/05/19 03/05/19 03/05/19 23:28 23:28 23:28 WBC 11.7 H RBC 3.47 L Hgb 8.2 L Hct 25.8 L MCV 74.4 L MCH 23.8 L MCHC 31.9 L RDW 22.2 H Plt Count 83 L D MPV 8.9 Absolute Neuts (auto) 10.9 H Neutrophils % 93.8 H Neutrophils % (Manual) 95.0 H Band Neutrophils % 2.0 Lymphocytes % 4.0 L D Lymphocytes % (Manual) 0.0 L Monocytes % 1.8 L Monocytes % (Manual) 3 L D Eosinophils % 0.0 Eosinophils % (Manual) 0.0 Basophils % 0.4 Basophils % (Manual) 0.0 Myelocytes % (Man) 0 D Promyelocytes % (Man) 0 Blast Cells % (Manual) 0 Nucleated RBC % 0 Metamyelocytes 0 Hypochromia 0 Platelet Estimate Decreased Polychromasia 0 Poikilocytosis 0 Anisocytosis 2+ Microcytosis 1+ Macrocytosis 0 PT with INR 11.60 INR 0.98 PTT (Actin FS) 32.2 Sodium 139 Potassium 3.4 L Chloride 103 Carbon Dioxide 25 Anion Gap 10 BUN 71.7 H Creatinine 5.9 H Est GFR (CKD-EPI)AfAm 8.18 Est GFR (CKD-EPI)NonAf 7.06 POC Glucometer Random Glucose 171 H Calcium 7.0 L Total Bilirubin 0.4 AST 31 ALT 92 H Alkaline Phosphatase 155 H Creatine Kinase Creatine Kinase Index CK-MB (CK-2) Troponin I 0.03 B-Natriuretic Peptide 7943.7 H Total Protein 6.3 L Albumin 2.8 L TSH 0.60 03/06/19 03/06/19 03/06/19 03:30 17:16 18:45 WBC RBC Hgb Hct MCV MCH MCHC RDW Plt Count MPV Absolute Neuts (auto) Neutrophils % Neutrophils % (Manual) Band Neutrophils % Lymphocytes % Lymphocytes % (Manual) Monocytes % Monocytes % (Manual) Eosinophils % Eosinophils % (Manual) Basophils % Basophils % (Manual) Myelocytes % (Man) Promyelocytes % (Man) Blast Cells % (Manual) Nucleated RBC % Metamyelocytes Hypochromia Platelet Estimate Polychromasia Poikilocytosis Anisocytosis Microcytosis Macrocytosis PT with INR INR PTT (Actin FS) Sodium Potassium Chloride Carbon Dioxide Anion Gap BUN Creatinine Est GFR (CKD-EPI)AfAm Est GFR (CKD-EPI)NonAf POC Glucometer 134 Random Glucose Calcium Total Bilirubin AST ALT Alkaline Phosphatase Creatine Kinase 179 Creatine Kinase Index 1.2 CK-MB (CK-2) 2.2 Troponin I 0.02 0.04 B-Natriuretic Peptide Total Protein Albumin TSH 03/06/19 22:28 WBC RBC Hgb Hct MCV MCH MCHC RDW Plt Count MPV Absolute Neuts (auto) Neutrophils % Neutrophils % (Manual) Band Neutrophils % Lymphocytes % Lymphocytes % (Manual) Monocytes % Monocytes % (Manual) Eosinophils % Eosinophils % (Manual) Basophils % Basophils % (Manual) Myelocytes % (Man) Promyelocytes % (Man) Blast Cells % (Manual) Nucleated RBC % Metamyelocytes Hypochromia Platelet Estimate Polychromasia Poikilocytosis Anisocytosis Microcytosis Macrocytosis PT with INR INR PTT (Actin FS) Sodium Potassium Chloride Carbon Dioxide Anion Gap BUN Creatinine Est GFR (CKD-EPI)AfAm Est GFR (CKD-EPI)NonAf POC Glucometer 161 Random Glucose Calcium Total Bilirubin AST ALT Alkaline Phosphatase Creatine Kinase Creatine Kinase Index CK-MB (CK-2) Troponin I B-Natriuretic Peptide Total Protein Albumin TSH Intake & Output 03/03/19 03/04/19 03/05/19 03/06/19 23:59 23:59 23:59 23:59 Intake Total 540 Balance 540 Weight 97.522 kg 99.427 kg Current Medications Generic Name Dose Route Start Last Admin Trade Name Freq PRN Reason Stop Dose Admin Albuterol Sulfate 1 amp 03/06/19 05:48 03/06/19 07:07 Ventolin 0.083% Nebulizer Soln - NEB 1 amp QID PRN Administration SHORT OF BREATH/WHEEZING Aspirin 81 mg 03/06/19 10:00 03/06/19 10:58 Asa - PO 81 mg DAILY JUANITO Administration Atorvastatin Calcium 10 mg 03/06/19 22:00 03/06/19 22:45 Lipitor - PO 10 mg HS JUANITO Administration Diltiazem HCl 360 mg 03/06/19 10:00 03/06/19 10:58 Cardizem Cd - PO 360 mg DAILY JUANITO Administration Ferrous Sulfate 325 mg 03/06/19 12:45 03/06/19 14:59 Feosol - PO 325 mg DAILY JUANITO Administration Hydralazine HCl 50 mg 03/06/19 14:00 03/06/19 15:03 Apresoline - PO 50 mg TID JUANITO Administration Isoniazid 300 mg 03/06/19 10:00 03/06/19 10:58 Inh - PO 300 mg DAILY JUANITO Administration Lidocaine HCl 1 applic 03/06/19 11:00 Xylocaine 5% Top. Ointment TP TID PRN neuropathy Metoprolol Succinate 100 mg 03/06/19 10:00 03/06/19 10:58 Toprol Xl - PO 100 mg DAILY JUANITO Administration Nifedipine 90 mg 03/06/19 10:00 03/06/19 10:58 Procardia Xl - PO 90 mg DAILY JUANITO Administration Polyethylene Glycol 17 gm 03/06/19 14:00 03/06/19 22:45 Miralax (For Daily Use) - PO 17 grams TID [facility] Administration Pramipexole Dihydrochloride 0.5 mg 03/06/19 20:00 03/06/19 22:45 Mirapex - PO 0.5 mg DAILY@1999 [facility] Administration Pramipexole Dihydrochloride 0.5 mg 03/06/19 20:00 Mirapex - PO DAILY@1999 [facility] Pregabalin 100 mg 03/06/19 11:02 03/06/19 15:27 Lyrica - PO Not Given TID [facility] Pyridoxine HCl 50 mg 03/06/19 10:00 03/06/19 10:58 Vitamin B6 - PO 50 mg DAILY [facility] Administration Senna 2 tab 03/06/19 22:00 03/06/19 22:45 Senna - PO 2 tab HS [facility] Administration Simethicone 80 mg 03/06/19 10:00 03/06/19 22:47 Mylicon - PO 80 mg Q4HWA [facility] Administration Tramadol HCl 50 mg 03/06/19 10:59 03/06/19 11:38 Ultram - PO 50 mg Q6H PRN Administration PAIN LEVEL 6-10 Umeclidinium/Vilanterol 1 puff 03/06/19 10:00 03/06/19 10:58 Anoro Ellipta 62.5-25 Mcg Inh IH 1 puff DAILY [facility] Administration Hospitalist Encounter Outcome: EKG- Junctional Rhythm 47 bpm, unchanged from prior study NS bolus running BP slight improvement 90/50 Critical Care Total Critical Care Time (in minutes): 40 Critical Care Statement: The care of this patient involved high complexity decision making to prevent further life threatening deterioration of the patient 's condition and/or to evaluate & treat vital organ system(s) failure or risk of failure.
--- NOTE | 2019-03-07 01:59 | RAPID ---
Physical Examination Vital Signs: Vital Signs Temperature 97.1 F L 03/07/19 01:44 Pulse Rate 47 L 03/06/19 17:00 Respiratory Rate 20 03/07/19 01:44 Blood Pressure 85/55 L 03/07/19 01:44 O2 Sat by Pulse Oximetry (%) 98 03/06/19 09:00 Labs: CBC, BMP 03/05/19 23:28 03/05/19 23:28 Rapid Response - Rapid Response Assessment: Rapid response called on the floor. Per nurse, pt was found to be more lethargic. Pt awake and alert, able to respond to questions, but noted to be moaning during interview. Pt's BP is noted to be tenuous today and was previously given 250 mL bolus x2. Manual BP taken noted to be 77/49, repeat ~80/60, 93% on 2L, MAP 67, Afebrile, HR in 40s GEN: Resting in bed, lethargic, but responsive to questions PULM: CTA B/L. No wheezes noted. CV: RRR. Normal S1, S2. Abd: Obese. Soft, nt/nd. Ext: No edema A/P: Sepsis workup initiated: CBC, CMP, trops, lactate, U/A, UCx, BCx, CXR, Head CT, EKG -Pt subsequently transferred to ICU for close monitoring
[2019-03-07 02:07] LABS: ARTERIAL BLD GAS O2 SATURATION 86.9 % (95-98); ARTERIAL BLOOD GAS BASE EXCESS -3.6 meq/l (-2-2); ARTERIAL BLOOD GAS PCO2 36.5 mmHg (35-45); ARTERIAL BLOOD GAS PO2 56.4 mmHg (80-105); ARTERIAL BLOOD GAS pH 7.37 (7.35-7.45)
[2019-03-07 02:13] LABS: ALLENS TEST POSITIVE
[2019-03-07 03:27] LABS: HEMATOCRIT 25.1 % (32.4-45.2); HEMOGLOBIN 8.1 GM/dL (10.7-15.3); MCH 24.1 pg (25.7-33.7); MCHC 32.2 g/dl (32.0-36.0); MEAN CELL VOLUME 74.7 fl (80-96); MEAN PLT VOLUME 9.3 fl (7.5-11.1); RBC 3.36 M/mm3 (3.60-5.2); RDW 22.4 % (11.6-15.6); WHITE BLOOD COUNT 9.5 K/mm3 (4.0-10.0)
[2019-03-07] MEDS ORDERED: GLUCAGON 1 MG KIT IVPUSH ONE (03:28)
--- NOTE | 2019-03-07 03:30 | CONSULT ---
Consultation: REQUESTING PROVIDER: CONSULT REQUEST: We have been asked to medically evaluate this patient for ( specify). 63 yo female PMHx of HTN, HLD, CAD s/p PCI 2013, PVD s/p Stent, DM (no meds), CKD Stage 4, GERD, last admission 3 weeks ago- Pneumonia, TB, COPD Exacerbation. Admitted to Telemetry for Anasarca secondary to Prednisone use, CHF Exacerabtion, Acute on Chronic CKD. Of note, pt is on renal transplant list. Renal plan: Plan - check bmp - will evaluate for more diuretics in am - pt to continue transplant eval after discharge - steroids may have contributed to fluid retention - will follow - start iron Cardiology saw pt in the hospital, recommendations/plan: Swelling-not c/w CHF -no current LE edema, no pulm edema, no sob except for mild wheezing for which nebulizers resolved symptoms -likely in part due to steroid use as outpatient -Echo 04/20/18: TDS, increased EF, FCDAOV, mild MR -Nuclear Stress Test 04/06/18: normal perfusion. -Please discontinue telemetry -No additional inpatient cardiac work up is needed at this time -pt should follow up in the office as outpatient for preoperative cardiac risk evaluation prior to renal transplant -advised her to call for fup with the transplant team ICU consulted to tele unit for hypotension (in the 70s) bradycardia (40s) and dizziness with reported self medication of approx 200-250 mg tramadol today. Pt on 4 active BP medications which are extended release, given this am On Eval, pt AOX3, sitting up in bed, reports dizziness. Denies MORIN, CP, difficulty breathing, abdominal pain. Son at bedside, states mom is at baseline mentation, not confused. Tox consulted, case discussed with Dr. Hall who spoke with nurse on Tele floor earlier today. Due to length of time hypotension persisted, tramadol unlikely cause of bradycardia and hypotension even though pt is CKD. Pt possibly suffering from hypertensive agent overdose at this time which can take up to 24 hours to resolve. Glucagon and calcium suggested to reverse potential betablocker/calcium channel awais effects along with cardiac work up. Repeat BP in the ICU, MAP above 70 consistently, patient AOX3, NAD, currently complains of mild dizziness Sepsis workup initiated: CBC, CMP, trops, lactate, U/A, UCx, BCx, CXR, Head CT, EKG 3% on 2L, MAP 67, Afebrile, HR in 40s REVIEW OF SYSTEMS: CONSTITUTIONAL: Absent: fever, chills, diaphoresis, malaise, Admits: generalized weakness, dizziness HEENT: Absent: rhinorrhea, nasal congestion, throat pain, throat swelling, difficulty swallowing, mouth swelling, ear pain, eye pain, visual changes CARDIOVASCULAR: Absent: chest pain, syncope, palpitations, irregular heart rate, lightheadedness , peripheral edema RESPIRATORY: Absent: cough, shortness of breath, dyspnea with exertion, orthopnea, wheezing, stridor, hemoptysis GASTROINTESTINAL: Absent: abdominal pain, abdominal distension, nausea, vomiting, diarrhea, constipation, melena, hematochezia GENITOURINARY: Absent: dysuria, frequency, urgency, hesitancy, hematuria, flank pain, genital pain SKIN: Absent: rash, itching, pallor NEUROLOGIC: Absent: headache, focal weakness or paresthesias, dizziness, unsteady gait, seizure, mental status changes, bladder or bowel incontinence PHYSICAL EXAMINATION Vital Signs - 24 hr 03/06/19 03/06/19 03/06/19 03:51 04:15 05:00 Temperature 98.0 F 98.0 F Pulse Rate 77 Pulse Rate [ 66 Right Radial] Respiratory 16 20 Rate Blood Pressure 159/87 Blood Pressure 158/79 [Right Arm] O2 Sat by Pulse 100 100 98 Oximetry (%) 03/06/19 03/06/19 03/06/19 09:00 14:00 17:00 Temperature 97.8 F 97.6 F 97.8 F Pulse Rate 67 59 L 47 L Pulse Rate [ Right Radial] Respiratory 20 20 Rate Blood Pressure 144/83 140/80 93/44 L Blood Pressure [Right Arm] O2 Sat by Pulse 98 Oximetry (%) 03/07/19 01:44 Temperature 97.1 F L Pulse Rate Pulse Rate [ Right Radial] Respiratory 20 Rate Blood Pressure 85/55 L Blood Pressure [Right Arm] O2 Sat by Pulse Oximetry (%) GENERAL: Awake, alert, and fully oriented, in no acute distress. HEAD: Normal with no signs of trauma. EYES: Pupils equal, round and reactive to light, extraocular movements intact, sclera anicteric, conjunctiva clear. No lid lag. NECK: Normal range of motion, supple without lymphadenopathy, JVD, or masses. LUNGS: Breath sounds equal, clear to auscultation bilaterally. No wheezes, and no crackles. No accessory muscle use. HEART: Regular rate and rhythm, normal S1 and S2 without murmur, rub or gallop. ABDOMEN: Soft, nontender, not distended, normoactive bowel sounds, no guarding, no rebound, no masses. No hepatomegaly or splenomegaly. MUSCULOSKELETAL: Normal range of motion at all joints. No bony deformities or tenderness. No CVA tenderness. UPPER EXTREMITIES: 2+ pulses, warm, well-perfused. No cyanosis. No clubbing. Cap refill <2 seconds. No peripheral edema. LOWER EXTREMITIES: 2+ pulses, warm, well-perfused. No calf tenderness. No peripheral edema. NEUROLOGICAL: Cranial nerves II-XII intact. Normal speech. SKIN: Warm, dry, normal turgor, no rashes or lesions noted. Laboratory Results - last 24 hr 03/06/19 03/06/19 03/06/19 03:30 17:16 18:45 Anticoagulation Therapy Puncture Site ABG pH ABG pCO2 at Pt Temp ABG pO2 at Pt Temp ABG HCO3 ABG O2 Sat (Measured) ABG O2 Content ABG Base Excess Ta Test O2 Delivery Device Oxygen Flow Rate Vent Mode Vent Rate Mechanical Rate Pressure Support Vent POC Glucometer 134 Creatine Kinase 179 Creatine Kinase Index 1.2 CK-MB (CK-2) 2.2 Troponin I 0.02 0.04 03/06/19 03/07/19 03/07/19 22:28 01:44 01:55 Anticoagulation Therapy No Result Required. Puncture Site Right radial ABG pH 7.37 ABG pCO2 at Pt Temp 36.5 ABG pO2 at Pt Temp 56.4 L ABG HCO3 20.7 L ABG O2 Sat (Measured) 86.9 L ABG O2 Content 10.3 L ABG Base Excess -3.6 L Ta Test Positive O2 Delivery Device Nasal 2 l Oxygen Flow Rate Yes Vent Mode No Result Required. Vent Rate No Result Required. Mechanical Rate No Result Required. Pressure Support Vent No Result Required. POC Glucometer 161 194 Creatine Kinase Creatine Kinase Index CK-MB (CK-2) Troponin I Active Medications Generic Name Dose Route Start Last Admin Trade Name Freq PRN Reason Stop Dose Admin Albuterol Sulfate 1 amp 03/06/19 05:48 03/06/19 07:07 Ventolin 0.083% Nebulizer Soln - NEB 1 amp QID PRN Administration SHORT OF BREATH/WHEEZING Aspirin 81 mg 03/06/19 10:00 03/06/19 10:58 Asa - PO 81 mg DAILY [facility] Administration Atorvastatin Calcium 10 mg 03/06/19 22:00 03/06/19 22:45 Lipitor - PO 10 mg HS [facility] Administration Diltiazem HCl 360 mg 03/06/19 10:00 03/06/19 10:58 Cardizem Cd - PO 360 mg DAILY [facility] Administration Ferrous Sulfate 325 mg 03/06/19 12:45 03/06/19 14:59 Feosol - PO 325 mg DAILY [facility] Administration Glucagon 1 mg 03/07/19 03:28 Glucagon - IVPUSH 03/07/19 03:29 ONCE ONE Hydralazine HCl 50 mg 03/06/19 14:00 03/06/19 15:03 Apresoline - PO 50 mg TID [facility] Administration Isoniazid 300 mg 03/06/19 10:00 03/06/19 10:58 Inh - PO 300 mg DAILY [facility] Administration Lidocaine HCl 1 applic 03/06/19 11:00 Xylocaine 5% Top. Ointment TP TID PRN neuropathy Metoprolol Succinate 100 mg 03/06/19 10:00 03/06/19 10:58 Toprol Xl - PO 100 mg DAILY [facility] Administration Nifedipine 90 mg 03/06/19 10:00 03/06/19 10:58 Procardia Xl - PO 90 mg DAILY [facility] Administration Polyethylene Glycol 17 gm 03/06/19 14:00 03/06/19 22:45 Miralax (For Daily Use) - PO 17 grams TID [facility] Administration Pramipexole Dihydrochloride 0.5 mg 03/06/19 20:00 03/06/19 22:45 Mirapex - PO 0.5 mg DAILY@1999 [facility] Administration Pramipexole Dihydrochloride 0.5 mg 03/06/19 20:00 Mirapex - PO DAILY@1999 [facility] Pregabalin 100 mg 03/06/19 11:02 03/06/19 15:27 Lyrica - PO Not Given TID [facility] Pyridoxine HCl 50 mg 03/06/19 10:00 03/06/19 10:58 Vitamin B6 - PO 50 mg DAILY [facility] Administration Senna 2 tab 03/06/19 22:00 03/06/19 22:45 Senna - PO 2 tab HS [facility] Administration Simethicone 80 mg 03/06/19 10:00 03/06/19 22:47 Mylicon - PO 80 mg Q4HWA [facility] Administration Tramadol HCl 50 mg 03/06/19 10:59 03/06/19 11:38 Ultram - PO 50 mg Q6H PRN Administration PAIN LEVEL 6-10 Umeclidinium/Vilanterol 1 puff 03/06/19 10:00 03/06/19 10:58 Anoro Ellipta 62.5-25 Mcg Inh IH 1 puff DAILY [facility] Administration ASSESSMENT/PLAN: Dispo: We will continue to follow the patient. Thank you for this consultative opportunity. 63 yo female PMHx of HTN, HLD, CAD s/p PCI 2013, PVD s/p Stent, DM (no meds), CKD Stage 4, GERD, last admission 3 weeks ago- Pneumonia, TB, COPD Exacerbation. Admitted to Telemetry for Anasarca secondary to Prednisone use, CHF Exacerabtion, Acute on Chronic CKD. Of note, pt is on renal transplant list. Renal plan: Plan - check bmp - will evaluate for more diuretics in am - pt to continue transplant eval after discharge - steroids may have contributed to fluid retention - will follow - start iron Cardiology saw pt in the hospital, recommendations/plan: Swelling-not c/w CHF -no current LE edema, no pulm edema, no sob except for mild wheezing for which nebulizers resolved symptoms -likely in part due to steroid use as outpatient -Echo 04/20/18: TDS, increased EF, FCDAOV, mild MR -Nuclear Stress Test 04/06/18: normal perfusion. -Please discontinue telemetry -No additional inpatient cardiac work up is needed at this time -pt should follow up in the office as outpatient for preoperative cardiac risk evaluation prior to renal transplant -advised her to call for fup with the transplant team ICU consulted to tele unit for hypotension (in the 70s) bradycardia (40s) and dizziness with reported self medication of approx 200-250 mg tramadol today. Pt on 4 active BP medications which are extended release, given this am On Eval, pt AOX3, sitting up in bed, reports dizziness. Denies MORIN, CP, difficulty breathing, abdominal pain. Son at bedside, states mom is at baseline mentation, not confused. Tox consulted, case discussed with Dr. Hall who spoke with nurse on Tele floor earlier today. Due to length of time hypotension persisted, tramadol unlikely cause of bradycardia and hypotension even though pt is CKD. Pt possibly suffering from hypertensive agent overdose at this time which can take up to 24 hours to resolve. Glucagon and calcium suggested to reverse potential betablocker/calcium channel awais effects along with cardiac work up. Repeat BP in the ICU, MAP above 70 consistently, patient AOX3, NAD, currently complains of mild dizziness Sepsis workup initiated: CBC, CMP, trops, lactate, U/A, UCx, BCx, CXR, Head CT, EKG 3% on 2L, MAP 67, Afebrile, HR in 40s Plan: Hold all BP meds hold tramadol, give Tylenol for pain trial of glucagon 1 mg IV, reassess BP Give 1 g Ca for hypocalcemia and potential Ca channel awais Otherwise, continue orders from Primary team Visit type - Emergency Visit Emergency Visit: Yes ED Registration Date: 03/06/19 Care time: The patient presented to the Emergency Department on the above date and was hospitalized for further evaluation of their emergent condition. - New Patient This patient is new to me today: Yes Date on this admission: 03/07/19 - Critical Care Critical Care patient: Yes Total Critical Care Time (in minutes): 60 Critical Care Statement: The care of this patient involved high complexity decision making to prevent further life threatening deterioration of the patient 's condition and/or to evaluate & treat vital organ system(s) failure or risk of failure.
[2019-03-07 04:03] LABS: BLOOD UREA NITROGEN 72.6 mg/dL (7-18); CREATININE 6.6 mg/dL (0.55-1.3); POTASSIUM 3.6 mmol/L (3.5-5.1)
[2019-03-07 04:06] LABS: CALCIUM 6.9 mg/dL (8.5-10.1)
[2019-03-07] MEDS ORDERED: ACETAMINOPHEN 325 MG TABLET (FP) PO PRN (04:06)
[2019-03-07] MEDS ORDERED: CALCIUM GLUCONATE 10% - 1,000 MG/10 ML VIAL IVPB ONE (04:07)
[2019-03-07 05:18] LABS: PLATELET COUNT 72 K/MM3 (134-434)
[2019-03-07 07:10] LABS: ALBUMIN 2.8 g/dl (3.4-5.0); BILIRUBIN,TOTAL 0.9 mg/dL (0.2-1); BLOOD UREA NITROGEN 75.9 mg/dL (7-18); CALCIUM 7.4 mg/dL (8.5-10.1); CREATININE 6.7 mg/dL (0.55-1.3); POTASSIUM 3.6 mmol/L (3.5-5.1); TOT PROT 5.8 g/dl (6.4-8.2)
--- NOTE | 2019-03-07 08:50 | PN ---
Physical Exam: SUBJECTIVE: Patient seen and examined at bedside- patient is very lethargic but arousable; patient has been bradycardic and was hypotensive which is now improving; she has no complaints other than she is sleepy and was having some slight abdominal pains - she denies CP/SOB/N/V OBJECTIVE: Vital Signs Period Temp Pulse Resp BP Sys/[place] Pulse Ox Last 24 Hr 97.1 F-98.1 F 43-67 12-24 77-144/44-83 97-98 GENERAL: The patient is lethargic but arousable a. EYES:PEERLA ; EOMI; no scleral icterus NECK: no JVD: no lymphadenopathy LUNGS: diminshed breath sounds; poor inspiratory effort . HEART: bradycardic, S1, S2 without murmur, rub or gallop. ABDOMEN: Soft, nontender, nondistended, normoactive bowel sounds, no guarding, no rebound, no hepatosplenomegaly, no masses. EXTREMITIES: 2+ pulses, warm, well-perfused, no edema. NEUROLOGICAL: Cranial nerves II through XII grossly intact. follows commands but arousable SKIN: Warm, dry, normal turgor, no rashes or lesions noted Laboratory Results - last 24 hr 03/06/19 03/06/19 03/06/19 17:16 18:45 22:28 WBC RBC Hgb Hct MCV MCH MCHC RDW Plt Count MPV Anticoagulation Therapy Puncture Site ABG pH ABG pCO2 at Pt Temp ABG pO2 at Pt Temp ABG HCO3 ABG O2 Sat (Measured) ABG O2 Content ABG Base Excess Ta Test O2 Delivery Device Oxygen Flow Rate Vent Mode Vent Rate Mechanical Rate Pressure Support Vent Sodium Potassium Chloride Carbon Dioxide Anion Gap BUN Creatinine Est GFR (CKD-EPI)AfAm Est GFR (CKD-EPI)NonAf POC Glucometer 134 161 Random Glucose Lactic Acid Calcium Total Bilirubin AST ALT Alkaline Phosphatase Creatine Kinase 179 Creatine Kinase Index 1.2 CK-MB (CK-2) 2.2 Troponin I 0.04 Total Protein Albumin 03/07/19 03/07/19 03/07/19 01:44 01:55 03:10 WBC 9.5 RBC 3.36 L Hgb 8.1 L Hct 25.1 L MCV 74.7 L MCH 24.1 L MCHC 32.2 RDW 22.4 H Plt Count 72 L MPV 9.3 Anticoagulation Therapy No Result Required. Puncture Site Right radial ABG pH 7.37 ABG pCO2 at Pt Temp 36.5 ABG pO2 at Pt Temp 56.4 L ABG HCO3 20.7 L ABG O2 Sat (Measured) 86.9 L ABG O2 Content 10.3 L ABG Base Excess -3.6 L Ta Test Positive O2 Delivery Device Nasal 2 l Oxygen Flow Rate Yes Vent Mode No Result Required. Vent Rate No Result Required. Mechanical Rate No Result Required. Pressure Support Vent No Result Required. Sodium Potassium Chloride Carbon Dioxide Anion Gap BUN Creatinine Est GFR (CKD-EPI)AfAm Est GFR (CKD-EPI)NonAf POC Glucometer 194 Random Glucose Lactic Acid Calcium Total Bilirubin AST ALT Alkaline Phosphatase Creatine Kinase Creatine Kinase Index CK-MB (CK-2) Troponin I Total Protein Albumin 03/07/19 03/07/19 03/07/19 03:10 03:10 03:10 WBC RBC Hgb Hct MCV MCH MCHC RDW Plt Count MPV Anticoagulation Therapy Puncture Site ABG pH ABG pCO2 at Pt Temp ABG pO2 at Pt Temp ABG HCO3 ABG O2 Sat (Measured) ABG O2 Content ABG Base Excess Ta Test O2 Delivery Device Oxygen Flow Rate Vent Mode Vent Rate Mechanical Rate Pressure Support Vent Sodium 138 Potassium 3.6 Chloride 102 Carbon Dioxide 23 Anion Gap 13 BUN 72.6 H Creatinine 6.6 H Est GFR (CKD-EPI)AfAm 7.14 Est GFR (CKD-EPI)NonAf 6.16 POC Glucometer Random Glucose 150 H Lactic Acid 2.3 H* Calcium 6.9 L* Total Bilirubin AST ALT Alkaline Phosphatase Creatine Kinase Creatine Kinase Index CK-MB (CK-2) Troponin I 0.04 Total Protein Albumin 03/07/19 06:00 WBC RBC Hgb Hct MCV MCH MCHC RDW Plt Count MPV Anticoagulation Therapy Puncture Site ABG pH ABG pCO2 at Pt Temp ABG pO2 at Pt Temp ABG HCO3 ABG O2 Sat (Measured) ABG O2 Content ABG Base Excess Ta Test O2 Delivery Device Oxygen Flow Rate Vent Mode Vent Rate Mechanical Rate Pressure Support Vent Sodium 137 Potassium 3.6 Chloride 102 Carbon Dioxide 23 Anion Gap 12 BUN 75.9 H Creatinine 6.7 H Est GFR (CKD-EPI)AfAm 7.01 Est GFR (CKD-EPI)NonAf 6.05 POC Glucometer Random Glucose 106 Lactic Acid Calcium 7.4 L Total Bilirubin 0.9 AST 482 H ALT 134 H Alkaline Phosphatase 166 H Creatine Kinase Creatine Kinase Index CK-MB (CK-2) Troponin I Total Protein 5.8 L Albumin 2.8 L Active Medications Generic Name Dose Route Start Last Admin Trade Name Freq PRN Reason Stop Dose Admin Acetaminophen 650 mg 03/07/19 04:06 Tylenol - PO Q6H PRN PAIN OR FEVER Albuterol Sulfate 1 amp 03/06/19 05:48 03/06/19 07:07 Ventolin 0.083% Nebulizer Soln - NEB 1 amp QID PRN Administration SHORT OF BREATH/WHEEZING Aspirin 81 mg 03/06/19 10:00 03/06/19 10:58 Asa - PO 81 mg DAILY [facility] Administration Atorvastatin Calcium 10 mg 03/06/19 22:00 03/06/19 22:45 Lipitor - PO 10 mg HS [facility] Administration Diltiazem HCl 360 mg 03/06/19 10:00 03/06/19 10:58 Cardizem Cd - PO 360 mg DAILY [facility] Administration Ferrous Sulfate 325 mg 03/06/19 12:45 03/06/19 14:59 Feosol - PO 325 mg DAILY [facility] Administration Hydralazine HCl 50 mg 03/06/19 14:00 03/06/19 15:03 Apresoline - PO 50 mg TID [facility] Administration Isoniazid 300 mg 03/06/19 10:00 03/06/19 10:58 Inh - PO 300 mg DAILY [facility] Administration Lidocaine HCl 1 applic 03/06/19 11:00 Xylocaine 5% Top. Ointment TP TID PRN neuropathy Metoprolol Succinate 100 mg 03/06/19 10:00 03/06/19 10:58 Toprol Xl - PO 100 mg DAILY [facility] Administration Nifedipine 90 mg 03/06/19 10:00 03/06/19 10:58 Procardia Xl - PO 90 mg DAILY [facility] Administration Polyethylene Glycol 17 gm 03/06/19 14:00 03/06/19 22:45 Miralax (For Daily Use) - PO 17 grams TID [facility] Administration Pramipexole Dihydrochloride 0.5 mg 03/06/19 20:00 03/06/19 22:45 Mirapex - PO 0.5 mg DAILY@2000 [facility] Administration Pramipexole Dihydrochloride 0.5 mg 03/06/19 20:00 Mirapex - PO DAILY@1999 [facility] Pregabalin 100 mg 03/06/19 11:02 03/06/19 15:27 Lyrica - PO Not Given TID [facility] Pyridoxine HCl 50 mg 03/06/19 10:00 03/06/19 10:58 Vitamin B6 - PO 50 mg DAILY [facility] Administration Senna 2 tab 03/06/19 22:00 03/06/19 22:45 Senna - PO 2 tab HS [facility] Administration Simethicone 80 mg 03/06/19 10:00 03/06/19 22:47 Mylicon - PO 80 mg Q4HWA [facility] Administration Tramadol HCl 50 mg 03/06/19 10:59 03/06/19 11:38 Ultram - PO 50 mg Q6H PRN Administration PAIN LEVEL 6-10 Umeclidinium/Vilanterol 1 puff 03/06/19 10:00 03/06/19 10:58 Anoro Ellipta 62.5-25 Mcg Inh IH 1 puff DAILY [facility] Administration ASSESSMENT/PLAN: 63 yo female PMHx of HTN, HLD, CAD s/p PCI 2013, PVD s/p Stent, DM (no meds), CKD Stage 4, GERD, last admission 3 weeks ago- Pneumonia, TB, COPD Exacerbation initially presented to the ED due to worsening anasarca from prednisone use, is currently in ICU due to hypotension, lethargy, bradycardia overnight #Neuro patient currently lethargic but arousable this AM -patient received narcan x1 overnight -head CT done overnight; read pending -holding patients lyrica for peripheral neuropathy at this moment -holding tramadol -dr hansen was initially consulted on patients arrival -monitor patients mental status #Cardio patient remains bradycardic however pressure is improving with MAPS in the 70's- low 80's (received 2 boluses overnight) -patient is s/p calcium gluconate and glucagon -EKG shows junctional bradycardia -holding all beta blockers and AV matthieu blockers -cardio consulted -echo ordered -c/w ASA and lipitor for CAD #GI LFTS very elevated; (AST 1102, ALt 215, alk phos 174) -likely 2/2 hypoperfusion -will continue to trend #Pulm COPD history, TB history c/w IZH and Vitamin B6 will continue with patients home inhalers monitor O2 sat 88-92% #Renal patient has CKD stage 4; took total of 250mg of tramadol overnight -BUN/Cr 76/6.9; increase likely 2/2 tramdol usage -will monitor electrolytes and volume status F/E/N not on fluids monitor electrolytes sodium/diabetic controlled diet DVT PPX: SCDS B/L Problem List - Problems (1) CHF (congestive heart failure) Code(s): I50.9 - HEART FAILURE, UNSPECIFIED (2) Anemia Code(s): D64.9 - ANEMIA, UNSPECIFIED (3) CAD (coronary artery disease) Code(s): I25.10 - ATHSCL HEART DISEASE OF [place] CORONARY ARTERY W/O ANG PCTRS (4) CHF (congestive heart failure), NYHA class III Code(s): I50.9 - HEART FAILURE, UNSPECIFIED (5) CKD (chronic kidney disease) stage 5, GFR less than 15 ml/min Code(s): N18.5 - CHRONIC KIDNEY DISEASE, STAGE 5 Visit type - Emergency Visit Emergency Visit: Yes ED Registration Date: 03/06/19 Care time: The patient presented to the Emergency Department on the above date and was hospitalized for further evaluation of their emergent condition. - New Patient This patient is new to me today: Yes Date on this admission: 03/07/19 - Critical Care Critical Care patient: Yes Total Critical Care Time (in minutes): 35 Critical Care Statement: The care of this patient involved high complexity decision making to prevent further life threatening deterioration of the patient 's condition and/or to evaluate & treat vital organ system(s) failure or risk of failure.
[2019-03-07] MEDS ORDERED: PT OWN MED DRAWER 7, Y5N ONE (08:58)
[2019-03-07] MEDS: ASPIRIN 81 MG CHEWABLE TABLETS PO SCH (09:12)
[2019-03-07] MEDS: NIFEdipine E.R. 90 MG TABLET (FP) PO SCH (09:12)
[2019-03-07] MEDS: PYRIDOXINE HCL (B-6) 50 MG TABLET (FP) PO SCH (09:12)
[2019-03-07] MEDS: ISONIAZID 300 MG TABLET (FP) PO SCH (09:12)
[2019-03-07] MEDS: FERROUS SO4 325 MG TABLET (FP) PO SCH (09:12)
--- NOTE | 2019-03-07 09:22 | PN ---
Progress Note, Physician Chief Complaint: Generalized swelling BLLE weakness Unsteady gait History of Present Illness: NAD c/o BLLE weakness, states she fell at home c/o burning BLL feet, unrelieved by lyrica, tramadol Was unable to MRI last admission due to SOB, wants to try it again To be seen by Neurology - Current Medication List Current Medications: Active Medications Acetaminophen (Tylenol -) 650 mg PO Q6H PRN PRN Reason: PAIN OR FEVER Albuterol Sulfate (Ventolin 0.083% Nebulizer Soln -) 1 amp NEB QID PRN PRN Reason: SHORT OF BREATH/WHEEZING Last Admin: 03/06/19 07:07 Dose: 1 amp Aspirin (Asa -) 81 mg PO DAILY [facility] Last Admin: 03/07/19 09:12 Dose: 81 mg Atorvastatin Calcium (Lipitor -) 10 mg PO HS [facility] Last Admin: 03/06/19 22:45 Dose: 10 mg Diltiazem HCl (Cardizem Cd -) 360 mg PO DAILY [facility] Last Admin: 03/06/19 10:58 Dose: 360 mg Ferrous Sulfate (Feosol -) 325 mg PO DAILY [facility] Last Admin: 03/07/19 09:12 Dose: 325 mg Hydralazine HCl (Apresoline -) 50 mg PO TID [facility] Last Admin: 03/06/19 15:03 Dose: 50 mg Isoniazid (Inh -) 300 mg PO DAILY [facility] Last Admin: 03/07/19 09:12 Dose: 300 mg Lidocaine HCl (Xylocaine 5% Top. Ointment) 1 applic TP TID PRN PRN Reason: neuropathy Metoprolol Succinate (Toprol Xl -) 100 mg PO DAILY [facility] Last Admin: 03/06/19 10:58 Dose: 100 mg Nifedipine (Procardia Xl -) 90 mg PO DAILY [facility] Last Admin: 03/07/19 09:12 Dose: Not Given Polyethylene Glycol (Miralax (For Daily Use) -) 17 gm PO TID [facility] Last Admin: 03/06/19 22:45 Dose: 17 grams Pramipexole Dihydrochloride (Mirapex -) 0.5 mg PO DAILY@1999 [facility] Last Admin: 03/06/19 22:45 Dose: 0.5 mg Pramipexole Dihydrochloride (Mirapex -) 0.5 mg PO DAILY@1999 [facility] Pregabalin (Lyrica -) 100 mg PO TID [facility] Last Admin: 03/06/19 15:27 Dose: Not Given Pyridoxine HCl (Vitamin B6 -) 50 mg PO DAILY [facility] Last Admin: 03/07/19 09:12 Dose: 50 mg Senna (Senna -) 2 tab PO HS [facility] Last Admin: 03/06/19 22:45 Dose: 2 tab Simethicone (Mylicon -) 80 mg PO Q4HWA [facility] Last Admin: 03/06/19 22:47 Dose: 80 mg Tramadol HCl (Ultram -) 50 mg PO Q6H PRN PRN Reason: PAIN LEVEL 6-10 Last Admin: 03/06/19 11:38 Dose: 50 mg Umeclidinium/Vilanterol (Anoro Ellipta 62.5-25 Mcg Inh) 1 puff IH DAILY [facility] Last Admin: 03/06/19 10:58 Dose: 1 puff - Objective Vital Signs: Vital Signs Temperature 97.4 F L 03/07/19 08:00 Pulse Rate 43 L 03/07/19 08:00 Respiratory Rate 03/07/19 08:00 Blood Pressure 99/71 03/07/19 08:00 O2 Sat by Pulse Oximetry (%) 97 03/07/19 03:30 Labs: CBC, BMP 03/07/19 03:10 03/07/19 06:00 INR, PTT INR 0.98 (0.83-1.09) 03/05/19 23:28 Problem List - Problems (1) Neuropathy Code(s): G62.9 - POLYNEUROPATHY, UNSPECIFIED (2) CKD (chronic kidney disease) stage 5, GFR less than 15 ml/min Code(s): N18.5 - CHRONIC KIDNEY DISEASE, STAGE 5 (3) COPD (chronic obstructive pulmonary disease) Code(s): J44.9 - CHRONIC OBSTRUCTIVE PULMONARY DISEASE, UNSPECIFIED (4) Tremors of nervous system Code(s): R25.1 - TREMOR, UNSPECIFIED (5) Anasarca Code(s): R60.1 - GENERALIZED EDEMA
[2019-03-07 10:19] LABS: ALBUMIN 2.9 g/dl (3.4-5.0); BILIRUBIN,TOTAL 0.8 mg/dL (0.2-1); BLOOD UREA NITROGEN 76.5 mg/dL (7-18); CALCIUM 7.6 mg/dL (8.5-10.1); CREATININE 6.9 mg/dL (0.55-1.3); POTASSIUM 3.9 mmol/L (3.5-5.1); TOT PROT 6.1 g/dl (6.4-8.2)
--- NOTE | 2019-03-07 11:13 | PN ---
Teaching Attending Note Name of Resident: Nadia Ashby ATTENDING PHYSICIAN STATEMENT I saw and evaluated the patient. I reviewed the resident's note and discussed the case with the resident. I agree with the resident's findings and plan as documented. SUBJECTIVE: Pt seen and examined in the ICU. Remains somnolent but arousable. EKG showing junctional bradycardia. Blood pressure has been stable. OBJECTIVE: Vital Signs Period Temp Pulse Resp BP Sys/Haywood Pulse Ox Last 24 Hr 97.1 F-98.1 F 43-59 12-24 77-140/44-80 97-97 Intake & Output 03/04/19 03/05/19 03/06/19 03/07/19 23:59 23:59 23:59 23:59 Intake Total 840 100 Balance 840 100 Weight 97.522 kg 99.427 kg 101.151 kg Gen: somnolent but arousable Heart: bradycardic, regular Lung: decreased breath sounds at the bases Abd: soft, nontender Ext: no edema CBC, BMP 03/07/19 03:10 03/07/19 09:06 Active Medications Acetaminophen (Tylenol -) 650 mg PO Q6H PRN PRN Reason: PAIN OR FEVER Albuterol Sulfate (Ventolin 0.083% Nebulizer Soln -) 1 amp NEB QID PRN PRN Reason: SHORT OF BREATH/WHEEZING Last Admin: 03/06/19 07:07 Dose: 1 amp Aspirin (Asa -) 81 mg PO DAILY [facility] Last Admin: 03/07/19 09:12 Dose: 81 mg Atorvastatin Calcium (Lipitor -) 10 mg PO HS [facility] Last Admin: 03/06/19 22:45 Dose: 10 mg Diltiazem HCl (Cardizem Cd -) 360 mg PO DAILY [facility] Last Admin: 03/06/19 10:58 Dose: 360 mg Ferrous Sulfate (Feosol -) 325 mg PO DAILY [facility] Last Admin: 03/07/19 09:12 Dose: 325 mg Hydralazine HCl (Apresoline -) 50 mg PO TID [facility] Last Admin: 03/06/19 15:03 Dose: 50 mg Isoniazid (Inh -) 300 mg PO DAILY [facility] Last Admin: 03/07/19 09:12 Dose: 300 mg Lidocaine HCl (Xylocaine 5% Top. Ointment) 1 applic TP TID PRN PRN Reason: neuropathy Metoprolol Succinate (Toprol Xl -) 100 mg PO DAILY [facility] Last Admin: 03/06/19 10:58 Dose: 100 mg Nifedipine (Procardia Xl -) 90 mg PO DAILY [facility] Last Admin: 03/07/19 09:12 Dose: Not Given Polyethylene Glycol (Miralax (For Daily Use) -) 17 gm PO TID [facility] Last Admin: 03/06/19 22:45 Dose: 17 grams Pramipexole Dihydrochloride (Mirapex -) 0.5 mg PO DAILY@1999 [facility] Last Admin: 03/06/19 22:45 Dose: 0.5 mg Pramipexole Dihydrochloride (Mirapex -) 0.5 mg PO DAILY@1999 [facility] Pregabalin (Lyrica -) 100 mg PO TID [facility] Last Admin: 03/06/19 15:27 Dose: Not Given Pyridoxine HCl (Vitamin B6 -) 50 mg PO DAILY [facility] Last Admin: 03/07/19 09:12 Dose: 50 mg Senna (Senna -) 2 tab PO [facility] Last Admin: 03/06/19 22:45 Dose: 2 tab [facility]eth[facility] ([facility] -) [facility] Last Admin: 03/06/19 22:47 Dose: 80 mg Tramadol HCl (Ultram -) 50 mg PO Q6H PRN PRN Reason: PAIN LEVEL 6-10 Last Admin: 03/06/19 11:38 Dose: 50 mg Umeclidinium/Vilanterol (Anoro Ellipta 62.5-25 Mcg Inh) 1 puff IH DAILY [facility] Last Admin: 03/06/19 10:58 Dose: 1 puff ASSESSMENT AND PLAN: Symptomatic Bradycardia LV Diastolic Dysfunction CAD CKD IV COPD DM HTN Hyperlipidemia - hold all AV matthieu agents - trend cardiac enzymes - echocardiogram - cardiology f/u - aspiration precautions - O2 to keep SPo2 >90% - inhaled bronchodilators - continue ICU monitoring
[2019-03-07] MEDS ORDERED: POTASSIUM CHLORIDE TABS 20 MEQ TABLET.ER (FP) PO ONE (11:15)
[2019-03-07 11:27] LABS: PHOSPHOROUS 6.9 mg/dL (2.5-4.9)
--- NOTE | 2019-03-07 12:10 | CON.NEURO ---
Consult - Past Medical History Cardio/Vascular: Yes: CAD, HTN, Hyperlipdemia, Other (PAD). No: AFIB Pulmonary: Yes: COPD. No: O2 Dependent Renal/: Yes: Renal Inusuff Rheumatology: Yes: Gout - Alcohol/Substance Use Hx Alcohol Use: No History of Substance Use: reports: None Date of Last Use: 03/06/19 - Smoking History Smoking history: Never smoked Have you smoked in the past 12 months: Yes Aproximately how many cigarettes per day: 7 If you are a former smoker, when did you quit?: 7 months Home Medications - Allergies Allergies/Adverse Reactions: Allergies Allergy/AdvReac Type Severity Reaction Status Date / Time No Known Drug Allergies Allergy Verified 03/05/19 22:47 - Home Medications Home Medications: Ambulatory Orders Aspirin [ASA -] 81 mg PO DAILY 09/04/12 Simvastatin [Zocor -] 20 mg PO DAILY 09/04/12 Nifedipine ER [Procardia XL -] 90 mg PO DAILY #30 tab.er.24 07/12/18 hydrALAZINE HCL [Apresoline -] 50 mg PO TID #90 tablet 07/12/18 Albuterol 0.083% Nebulizer Mylene [Ventolin 0.083% Nebulizer Soln -] 1 amp NEB QID PRN #120 amp 02/24/19 Nebulizer and Compressor [Comp-Air Nebulizer System] 1 each QID PRN #1 each 02/24/19 Polyethylene Glycol 3350 [Miralax 119 gm Btl -] 17 gm PO TID #2 bottle 02/24/19 Pramipexole Dihydrochloride [Mirapex -] 0.5 mg PO DAILY@2000 #30 tablet Prednisone 10 mg PO ASDIR #42 tablet 02/24/19 Sennosides [Senna -] 2 tab PO HS #60 tablet 02/24/19 Simethicone [Mylicon -] 80 mg PO Q4HWA #180 tab.chew 02/24/19 Diltiazem HCl [Diltiazem 24Hr ER] 360 mg PO DAILY 03/06/19 Furosemide 80 mg PO DAILY 03/06/19 Isoniazid 300 mg PO DAILY 03/06/19 Metoprolol Succinate 100 mg PO DAILY 03/06/19 Pregabalin [Lyrica] 100 mg PO TID 03/06/19 Pyridoxine HCl (Vitamin B6) [Pyridoxine HCl] 50 mg PO DAILY 03/06/19 traMADol HCL [Ultram] 50 mg PO Q6H 03/06/19 Physical Exam-Neuro Vital Signs: Vital Signs Temperature 97.4 F L 03/07/19 08:00 Pulse Rate 42 L 03/07/19 11:24 Respiratory Rate 17 03/07/19 11:24 Blood Pressure 123/65 03/07/19 11:24 O2 Sat by Pulse Oximetry (%) 97 03/07/19 09:00 Labs: CBC, BMP 03/07/19 03:10 03/07/19 09:06 INR, PTT INR 0.98 (0.83-1.09) 03/05/19 23:28 Assessment/Plan cc Chronci low back pain HPI 63 year old female history of HTN, HLD, CAD s/p PCI, pvd , ckd. Patient also have copd and pnemonia . Patient came with swelling of body and she took several tramadol dosage as she was in pain. She denies any low back pain and difficulty moving leg. She is able to hold urine. She did have mri of L spine and it showed severe spinal stenosis. Patient denies any focal neuorlogical symptoms PMH as above. SH,ROS,FH reviewed in chart - Allergies Allergies Allergy/AdvReac Type Severity Reaction Status Date / Time No Known Drug Allergies Allergy Verified 03/05/19 22:47 Home Medications: Aspirin [ASA -] 81 mg PO DAILY 09/04/12 Simvastatin [Zocor -] 20 mg PO DAILY 09/04/12 Nifedipine ER [Procardia XL -] 90 mg PO DAILY #30 tab.er.24 07/12/18 hydrALAZINE HCL [Apresoline -] 50 mg PO TID #90 tablet 07/12/18 Albuterol 0.083% Nebulizer Mylene [Ventolin 0.083% Nebulizer Soln -] 1 amp NEB QID PRN #120 amp 02/24/19 Nebulizer and Compressor [Comp-Air Nebulizer System] 1 each QID PRN #1 each 02/24/19 Polyethylene Glycol 3350 [Miralax 119 gm Btl -] 17 gm PO TID #2 bottle 02/24/19 Pramipexole Dihydrochloride [Mirapex -] 0.5 mg PO DAILY@2000 #30 tablet Prednisone 10 mg PO ASDIR #42 tablet 02/24/19 Sennosides [Senna -] 2 tab PO HS #60 tablet 02/24/19 Simethicone [Mylicon -] 80 mg PO Q4HWA #180 tab.chew 02/24/19 Diltiazem HCl [Diltiazem 24Hr ER] 360 mg PO DAILY 03/06/19 Furosemide 80 mg PO DAILY 03/06/19 Isoniazid 300 mg PO DAILY 03/06/19 Metoprolol Succinate 100 mg PO DAILY 03/06/19 Pregabalin [Lyrica] 100 mg PO TID 03/06/19 Pyridoxine HCl (Vitamin B6) [Pyridoxine HCl] 50 mg PO DAILY 03/06/19 traMADol HCL [Ultram] 50 mg PO Q6H 03/06/19 NEUROLOGICAL EXAMINATION Alert oriented x 3, no neck stiffness, sleepy and goes back to sleep if there is pause in conversation eomi, pupils reactive no face asymmetry moving all ext, lower extremity good strenght both proximal and distally sensation is normal reflex are generalized diminisehd mri of L spine showed there is severe spinal stenosis Assessment/pLAN 1. Chronic low back pain due to spinal stenosis , clinically there is no evidence of cauda equina or cord compression. Plan: hold opioids as she is lethargic - consider small dose of cymbalta 30 mg po bid, if ok with primary after her mental status change -PT - Consider pain management if pain persists - There is no evidence of cauda equina or cord compression at this time Thanking you so much Atul Winston MD
--- NOTE | 2019-03-07 12:30 | PN ---
Progress Note (short form) - Note Progress Note: ID CONSULT DICTATED ASKED TO EVALUATE PT FOR LATENT TB INFECTION STATES SHE HAS BEEN ON INH/ B6 X 6MO NOW IN ICU AFTER EPISODE OF HYPOTENSION/ BRADYCARDIA + TRANSAMINITIS ? SECONDARY TO SHOCK LIVER HOLD INH UNTIL LFTS IMPROVED
--- NOTE | 2019-03-07 12:36 | PN ---
Progress Note, Physician History of Present Illness: Pt seen and examined at bedside. She tool extra tramadol that she had last night. She was found to be hypotensive and bradycardic. She was transferred to the ICU. She is now more awake and bp is improving. - Current Medication List Current Medications: Active Medications Acetaminophen (Tylenol -) 650 mg PO Q6H PRN PRN Reason: PAIN OR FEVER Albuterol Sulfate (Ventolin 0.083% Nebulizer Soln -) 1 amp NEB QID PRN PRN Reason: SHORT OF BREATH/WHEEZING Last Admin: 03/06/19 07:07 Dose: 1 amp Aspirin (Asa -) 81 mg PO DAILY [facility] Last Admin: 03/07/19 09:12 Dose: 81 mg Atorvastatin Calcium (Lipitor -) 10 mg PO HS [facility] Last Admin: 03/06/19 22:45 Dose: 10 mg Diltiazem HCl (Cardizem Cd -) 360 mg PO DAILY [facility] Last Admin: 03/06/19 10:58 Dose: 360 mg Ferrous Sulfate (Feosol -) 325 mg PO DAILY [facility] Last Admin: 03/07/19 09:12 Dose: 325 mg Hydralazine HCl (Apresoline -) 50 mg PO TID [facility] Last Admin: 03/06/19 15:03 Dose: 50 mg Lidocaine HCl (Xylocaine 5% Top. Ointment) 1 applic TP TID PRN PRN Reason: neuropathy Metoprolol Succinate (Toprol Xl -) 100 mg PO DAILY [facility] Last Admin: 03/06/19 10:58 Dose: 100 mg Nifedipine (Procardia Xl -) 90 mg PO DAILY [facility] Last Admin: 03/07/19 09:12 Dose: Not Given Polyethylene Glycol (Miralax (For Daily Use) -) 17 gm PO TID [facility] Last Admin: 03/06/19 22:45 Dose: 17 grams Pramipexole Dihydrochloride (Mirapex -) 0.5 mg PO DAILY@1999 [facility] Last Admin: 03/06/19 22:45 Dose: 0.5 mg Pramipexole Dihydrochloride (Mirapex -) 0.5 mg PO DAILY@1999 [facility] Pregabalin (Lyrica -) 100 mg PO TID [facility] Last Admin: 03/06/19 15:27 Dose: Not Given Pyridoxine HCl (Vitamin B6 -) 50 mg PO DAILY [facility] Last Admin: 03/07/19 09:12 Dose: 50 mg Senna (Senna -) 2 tab PO HS [facility] Last Admin: 03/06/19 22:45 Dose: 2 tab Simethicone (Mylicon -) 80 mg PO Q4HWA [facility] Last Admin: 03/06/19 22:47 Dose: 80 mg Tramadol HCl (Ultram -) 50 mg PO Q6H PRN PRN Reason: PAIN LEVEL 6-10 Last Admin: 03/06/19 11:38 Dose: 50 mg Umeclidinium/Vilanterol (Anoro Ellipta 62.5-25 Mcg Inh) 1 puff IH DAILY [facility] Last Admin: 03/06/19 10:58 Dose: 1 puff - Objective Vital Signs: Vital Signs Temperature 97.4 F L 03/07/19 08:00 Pulse Rate 42 L 03/07/19 11:24 Respiratory Rate 17 03/07/19 11:24 Blood Pressure 123/65 03/07/19 11:24 O2 Sat by Pulse Oximetry (%) 97 03/07/19 09:00 Constitutional: Yes: Calm Eyes: Yes: Conjunctiva Clear HENT: Yes: Atraumatic Neck: Yes: Supple Cardiovascular: Yes: S1, S2 Respiratory: Yes: On Nasal O2 Gastrointestinal: Yes: Soft, Abdomen, Obese Genitourinary: Yes: WNL Musculoskeletal: Yes: WNL Edema: No Neurological: Yes: Oriented Psychiatric: Yes: Oriented Labs: CBC, BMP 03/07/19 03:10 03/07/19 09:06 INR, PTT INR 0.98 (0.83-1.09) 03/05/19 23:28 Problem List - Problems (1) Anasarca Code(s): R60.1 - GENERALIZED EDEMA (2) CHF (congestive heart failure) Code(s): I50.9 - HEART FAILURE, UNSPECIFIED Assessment/Plan Current Medications Generic Name Dose Route Start Last Admin Trade Name Freq PRN Reason Stop Dose Admin Acetaminophen 650 mg 03/07/19 04:06 Tylenol - PO Q6H PRN PAIN OR FEVER Albuterol Sulfate 1 amp 03/06/19 05:48 03/06/19 07:07 Ventolin 0.083% Nebulizer Soln - NEB 1 amp QID PRN Administration SHORT OF BREATH/WHEEZING Aspirin 81 mg 03/06/19 10:00 06/09/19 09:12 Asa - PO 81 mg DAILY [facility] Administration Atorvastatin Calcium 10 mg 03/06/19 22:00 03/06/19 22:45 Lipitor - PO 10 mg HS [facility] Administration Diltiazem HCl 360 mg 03/06/19 10:00 03/06/19 10:58 Cardizem Cd - PO 360 mg DAILY [facility] Administration Ferrous Sulfate 325 mg 03/06/19 12:45 03/07/19 09:12 Feosol - PO 325 mg DAILY [facility] Administration Hydralazine HCl 50 mg 03/06/19 14:00 03/06/19 15:03 Apresoline - PO 50 mg TID [facility] Administration Lidocaine HCl 1 applic 03/06/19 11:00 Xylocaine 5% Top. Ointment TP TID PRN neuropathy Metoprolol Succinate 100 mg 03/06/19 10:00 03/06/19 10:58 Toprol Xl - PO 100 mg DAILY [facility] Administration Nifedipine 90 mg 03/06/19 10:00 03/07/19 09:12 Procardia Xl - PO Not Given DAILY [facility] Polyethylene Glycol 17 gm 03/06/19 14:00 03/06/19 22:45 Miralax (For Daily Use) - PO 17 grams TID [facility] Administration Pramipexole Dihydrochloride 0.5 mg 03/06/19 20:00 03/06/19 22:45 Mirapex - PO 0.5 mg DAILY@1999 [facility] Administration Pramipexole Dihydrochloride 0.5 mg 03/06/19 20:00 Mirapex - PO DAILY@1999 [facility] Pregabalin 100 mg 03/06/19 11:02 03/06/19 15:27 Lyrica - PO Not Given TID [facility] Pyridoxine HCl 50 mg 03/06/19 10:00 03/07/19 09:12 Vitamin B6 - PO 50 mg DAILY [facility] Administration Senna 2 tab 03/06/19 22:00 03/06/19 22:45 Senna - PO 2 tab HS [facility] Administration Simethicone 80 mg 03/06/19 10:00 03/06/19 22:47 Mylicon - PO 80 mg Q4HWA [facility] Administration Tramadol HCl 50 mg 03/06/19 10:59 03/06/19 11:38 Ultram - PO 50 mg Q6H PRN Administration PAIN LEVEL 6-10 Umeclidinium/Vilanterol 1 puff 03/06/19 10:00 03/06/19 10:58 Anoro Ellipta 62.5-25 Mcg Inh IH 1 puff DAILY [facility] Administration Impression 1. CKD 2. CHF 3. PVD 4. HTN 5. CAD 6. COPD 7. Gout 8. constipation 9. 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
[2019-03-07] MEDS ORDERED: ONDANSETRON 4 MG/2 ML VIAL IVPUSH ONE (13:07)
--- NOTE | 2019-03-07 13:13 | CONS ---
DATE OF CONSULTATION: DATE OF DICTATION: 03/07/2019 The patient is a 63-year-old female, who I was asked to evaluate for latent TB infection. The patient does not give a reliable history. She has apparently been on INH and B6 prophylaxis for the past 6 months for latent pulmonary TB. She is unable to give any additional details. She was admitted to the hospital on March 06, 2019, with worsening anasarca and shortness of breath for the past 3 days. In addition, she reports generalized weakness and falls. She was recently hospitalized in January for approximately 11 days for pneumonia. Chest x-ray on admission shows some pulmonary vascular congestion, no discrete infiltrate. PAST MEDICAL HISTORY: Positive for hypertension, hyperlipidemia, coronary artery disease, diabetes mellitus, gastroesophageal reflux, chronic kidney disease, peripheral vascular disease status post arterial stent, COPD. PAST SURGICAL HISTORY: Status post ventral hernia repair, section. No known allergies. Medications include Tylenol, albuterol, aspirin, Lipitor, INH, B6, dexamethasone, Cardizem, Lasix, hydralazine, metoprolol, nifedipine, Lyrica, tramadol. SOCIAL HISTORY: Originally from [place]. Has been living in the [facility] for many years. Former smoker. SYSTEMS REVIEW: Neurologic: Positive for peripheral neuropathy. No loss of consciousness, seizure activity, or focal weakness. Cardiac: Negative chest pain or palpitations. Respiratory: As per HPI. Gastrointestinal: Negative vomiting or diarrhea. Genitourinary: Positive for chronic kidney disease. LABORATORY DATA: White count 9.5, hematocrit 25.1, platelet count 72, BUN 76, creatinine 6.9, total bilirubin 0.8, alkaline phosphatase 174, AST 1102, ALT 215. Blood cultures are pending. PHYSICAL EXAMINATION: General: She is awake but lethargic, slightly short of breath at rest on nasal cannula, obese. Vital Signs: Temperature 97.4. Blood pressure 123/65. Pulse 42, regular. Respirations 17 per minute. Eyes: Sclerae anicteric. Heart Sounds: Bradycardic, S1, S2. Lungs: Poor inspiratory effort, grossly clear. Abdomen: Obese, soft, nontender. Extremities: 1+ edema. IMPRESSION: 1. Status post rapid response for hypotension/bradycardia. 2. Anasarca. 3. Acute on chronic renal failure. 4. Latent tuberculosis, on INH prophylaxis. Will obtain additional details regarding the patient's prophylactic regimen. In light of markedly elevated transaminases, likely secondary to shock liver, will hold INH, await normalization of liver enzymes. Thank you for the kind referral. CONNOR GALINDO M.D. [id number]
[2019-03-07] MEDS: PREGABALIN 100 MG CAPSULE PO SCH ×2 (13:39→21:44)
[2019-03-07] MEDS: UMECLIDINIUM/VILANTEROL (ANORO) 62.5/25 MCG INHALER IH SCH (13:39)
--- NOTE | 2019-03-07 14:45 | PN ---
Progress Note, Physician History of Present Illness: seen and examined today in nad. awake, alert, oriented. states she is feeling much better since yesterday. She was transferred to ICU after found lethargic, hypotensive and bradycardic. Later discovered that she had taken multiple Tramadol doses from her home supply in addition to what she is receiving in the hospital. - Current Medication List Current Medications: Active Medications Acetaminophen (Tylenol -) 650 mg PO Q6H PRN PRN Reason: PAIN OR FEVER Albuterol Sulfate (Ventolin 0.083% Nebulizer Soln -) 1 amp NEB QID PRN PRN Reason: SHORT OF BREATH/WHEEZING Last Admin: 03/06/19 07:07 Dose: 1 amp Aspirin (Asa -) 81 mg PO DAILY [facility] Last Admin: 03/07/19 09:12 Dose: 81 mg Atorvastatin Calcium (Lipitor -) 10 mg PO HS [facility] Last Admin: 03/06/19 22:45 Dose: 10 mg Diltiazem HCl (Cardizem Cd -) 360 mg PO DAILY [facility] Last Admin: 03/06/19 10:58 Dose: 360 mg Ferrous Sulfate (Feosol -) 325 mg PO DAILY [facility] Last Admin: 03/07/19 09:12 Dose: 325 mg Hydralazine HCl (Apresoline -) 50 mg PO TID [facility] Last Admin: 03/06/19 15:03 Dose: 50 mg Lidocaine HCl (Xylocaine 5% Top. Ointment) 1 applic TP TID PRN PRN Reason: neuropathy Metoprolol Succinate (Toprol Xl -) 100 mg PO DAILY [facility] Last Admin: 03/06/19 10:58 Dose: 100 mg Nifedipine (Procardia Xl -) 90 mg PO DAILY [facility] Last Admin: 03/07/19 09:12 Dose: Not Given Polyethylene Glycol (Miralax (For Daily Use) -) 17 gm PO TID [facility] Last Admin: 03/06/19 22:45 Dose: 17 grams Pramipexole Dihydrochloride (Mirapex -) 0.5 mg PO DAILY@1999 [facility] Last Admin: 03/06/19 22:45 Dose: 0.5 mg Pramipexole Dihydrochloride (Mirapex -) 0.5 mg PO DAILY@1999 [facility] Pregabalin (Lyrica -) 100 mg PO TID [facility] Last Admin: 03/07/19 13:39 Dose: 100 mg Pyridoxine HCl (Vitamin B6 -) 50 mg PO DAILY [facility] Last Admin: 03/07/19 09:12 Dose: 50 mg Senna (Senna -) 2 tab PO HS [facility] Last Admin: 03/06/19 22:45 Dose: 2 tab Simethicone (Mylicon -) 80 mg PO Q4HWA [facility] Last Admin: 03/06/19 22:47 Dose: 80 mg Tramadol HCl (Ultram -) 50 mg PO Q6H PRN PRN Reason: PAIN LEVEL 6-10 Last Admin: 03/06/19 11:38 Dose: 50 mg Umeclidinium/Vilanterol (Anoro Ellipta 62.5-25 Mcg Inh) 1 puff IH DAILY [facility] Last Admin: 03/07/19 13:39 Dose: 1 puff - Objective Vital Signs: Vital Signs Temperature 96.1 F L 03/07/19 13:00 Pulse Rate 42 L 03/07/19 13:00 Respiratory Rate 16 03/07/19 13:00 Blood Pressure 110/75 03/07/19 13:00 O2 Sat by Pulse Oximetry (%) 97 03/07/19 09:00 Constitutional: Yes: No Distress, Calm Eyes: Yes: Conjunctiva Clear, EOM Intact, PERRL HENT: Yes: Atraumatic, Normocephalic Neck: Yes: Supple, Trachea Midline Cardiovascular: Yes: Bradycardia, Gallop, S1, S2. No: Tachycardia, Pulse Irregular, Bruit, JVD, Murmur, Rub, S3, S4, Varicosities Respiratory: Yes: Regular, CTA Bilaterally. No: Rales, Rhonchi, Wheezes Gastrointestinal: Yes: Normal Bowel Sounds, Soft. No: Distention, Tenderness Breast(s): Yes: WNL Musculoskeletal: Yes: WNL Extremities: Yes: WNL Edema: No Peripheral Pulses WNL: Yes Neurological: Yes: Alert, Oriented Psychiatric: Yes: Alert, Oriented Labs: CBC, BMP 03/07/19 03:10 03/07/19 09:06 INR, PTT INR 0.98 (0.83-1.09) 03/05/19 23:28 - ....Imaging Chest X-ray: Report Reviewed, Image Reviewed EKG: Report Reviewed, Image Reviewed Other: Report Reviewed, Image Reviewed (tele-junctional bradycardia 40's bpm) Assessment/Plan 63 year old woman with a PMHx of HTN, HLD, GERD, CAD s/p PCI (2013), CKD Stage IV, PVD s/p 1 extremity stent, COPD, DM, undergoing evaluation for renal transplant at [facility], has been seen in our office for preop renal transplant evaluation. Echo 03/2018 showed Increased LVEF, mild valvular abnl and Nuclear stress test at that time showed Normal perfusion, she has had prior admissions for COPD and PNA, she is now admitted with c/o facial swelling, intermittent LE edema and generalized body edema, as well as LE weakness, burning of feet. She states she is feeling better today. states her LE edema resolves when in bed and is not present currently. Denies any sob, states she was wheezing earlier but resolved with nebulizers. states swelling has improved. No chest pain Bradycardia-junctional bradycardia as well as lethargy, hypotension after taking multiple Tramadol doses from home supply in addition to what she received in hospital -mental status back to normal -BP stable -remains in asymptomatic junctional bradycardia -hold all AV matthieu blockers -monitor tele -no indication for PPM at this time Swelling-not c/w CHF -no current LE edema, no pulm edema, no sob except for mild wheezing for which nebulizers resolved symptoms -likely in part due to steroid use as outpatient -Echo 04/20/18: TDS, increased EF, FCDAOV, mild MR -Nuclear Stress Test 04/06/18: normal perfusion. -Please discontinue telemetry -No additional inpatient cardiac work up is needed at this time -pt should follow up in the office as outpatient for preoperative cardiac risk evaluation prior to renal transplant -advised her to call for fup with the transplant team
[2019-03-07] MEDS: POLYETHYLENE GLYCOL 3350 119 GM BTL PO SCH ×3 (18:50→21:46)
[2019-03-07] MEDS: SIMETHICONE 80 MG TAB.CHEW (FP) PO SCH ×2 (18:50→21:45)
[2019-03-07] MEDS ORDERED: MAGNESIUM SULF 50% (8.12 MEQ/2 ML-1 GM VIAL) IVPB ONE (20:12)
[2019-03-07] MEDS: ALBUTEROL SO4 0.083% IH SOL 2.5 MG/3 ML VIAL.NEB. NEB PRN ×2 (20:14→23:59)
[2019-03-07] MEDS: PRAMIPEXOLE DIHYDROCHLORIDE 0.5 MG TABLET PO SCH ×2 (21:44→21:45)
[2019-03-07] MEDS: ATORVASTATIN CA 10 MG TABLET (FP) PO SCH (21:45)
[2019-03-07] MEDS: SENNOSIDES 8.6MG TABLET (FP) PO SCH (21:46)
--- NOTE | 2019-03-08 00:22 | CONSULT ---
Consult Consult Specialty:: ENDOCRINE Referred by:: GIAN GONSALES Reason for Consultation:: MYA SYNDROME - History of Present Illness Chief Complaint: WEAKNESS AND PAIN History of Present Illness: 63 y/o woman with a PMHx of DM2, HTN, HLD, CAD , PVD s/p Stent, , CKD Stage 4, GERD, last admission 3 weeks ago- Pneumonia, COPD Exacerbation. Who presents to the ED with SOB, generalized swelling to her body and lower extremities x2 days , facial swelling x 1 day. She was on Prednsione since discharge but she was not taking it as prescribed. She had RX for Prednisone dated 02/11, 02/24. she has been weak, has had b/l leg weakness and a severe burning sensation to b/l feet. She has been having difficulty ambulating. - Past Medical History Cardio/Vascular: Yes: CAD, HTN, Hyperlipdemia, Other (PAD). No: AFIB Pulmonary: Yes: COPD. No: O2 Dependent Renal/: Yes: Renal Inusuff Rheumatology: Yes: Gout - Alcohol/Substance Use Hx Alcohol Use: No History of Substance Use: reports: None Date of Last Use: 03/06/19 - Smoking History Smoking history: Never smoked Have you smoked in the past 12 months: Yes Aproximately how many cigarettes per day: 7 If you are a former smoker, when did you quit?: 7 months Home Medications - Allergies Allergies/Adverse Reactions: Allergies Allergy/AdvReac Type Severity Reaction Status Date / Time No Known Drug Allergies Allergy Verified 03/05/19 22:47 - Home Medications Home Medications: Ambulatory Orders Aspirin [ASA -] 81 mg PO DAILY 09/04/12 Simvastatin [Zocor -] 20 mg PO DAILY 09/04/12 Nifedipine ER [Procardia XL -] 90 mg PO DAILY #30 tab.er.24 07/12/18 hydrALAZINE HCL [Apresoline -] 50 mg PO TID #90 tablet 07/12/18 Albuterol 0.083% Nebulizer Mylene [Ventolin 0.083% Nebulizer Soln -] 1 amp NEB QID PRN #120 amp 02/24/19 Nebulizer and Compressor [Comp-Air Nebulizer System] 1 each QID PRN #1 each 02/24/19 Polyethylene Glycol 3350 [Miralax 119 gm Btl -] 17 gm PO TID #2 bottle 02/24/19 Pramipexole Dihydrochloride [Mirapex -] 0.5 mg PO DAILY@2000 #30 tablet Prednisone 10 mg PO ASDIR #42 tablet 02/24/19 Sennosides [Senna -] 2 tab PO HS #60 tablet 02/24/19 Simethicone [Mylicon -] 80 mg PO Q4HWA #180 tab.chew 02/24/19 Diltiazem HCl [Diltiazem 24Hr ER] 360 mg PO DAILY 03/06/19 Furosemide 80 mg PO DAILY 03/06/19 Isoniazid 300 mg PO DAILY 03/06/19 Metoprolol Succinate 100 mg PO DAILY 03/06/19 Pregabalin [Lyrica] 100 mg PO TID 03/06/19 Pyridoxine HCl (Vitamin B6) [Pyridoxine HCl] 50 mg PO DAILY 03/06/19 traMADol HCL [Ultram] 50 mg PO Q6H 03/06/19 Review of Systems - Review of Systems Constitutional: reports: Lethargy, Weakness Eyes: reports: Blurred Vision HENT: reports: No Symptoms Neck: reports: No Symptoms Cardiovascular: reports: Shortness of Breath Respiratory: reports: Exercise Intolerance, SOB on Exertion Gastrointestinal: reports: Bloating, Constipation Genitourinary: reports: No Symptoms Breasts: reports: No Symptoms Reported Musculoskeletal: reports: Extremity Pain, Muscle Pain, Muscle Cramps, Muscle Weakness Neurological: reports: Unsteady Gait, Weakness Endocrine: reports: Unexplained Weight Gain Physical Exam Vital Signs: Vital Signs Temperature 97.6 F 03/07/19 18:00 Pulse Rate 42 L 03/07/19 18:00 Respiratory Rate 15 03/07/19 18:00 Blood Pressure 109/67 03/07/19 18:00 O2 Sat by Pulse Oximetry (%) 97 03/07/19 09:00 Constitutional: Yes: Calm Eyes: Yes: EOM Intact HENT: Yes: Normocephalic Neck: Yes: Trachea Midline Cardiovascular: Yes: Bradycardia Respiratory: Yes: CTA Bilaterally Gastrointestinal: Yes: Normal Bowel Sounds ...Rectal Exam: Yes: Deferred Renal/: Yes: WNL Musculoskeletal: Yes: Muscle Pain, Muscle Weakness Extremities: Yes: Delayed Capillary Refill Edema: Yes Edema: LLE: 1+, RLE: 1+ Neurological: Yes: Alert, Oriented Labs: CBC, BMP 03/07/19 03:10 03/07/19 09:06 Problem List - Problems (2) Anasarca Code(s): R60.1 - GENERALIZED EDEMA (3) CHF (congestive heart failure) Code(s): I50.9 - HEART FAILURE, UNSPECIFIED (4) Dyspnea Code(s): R06.00 - DYSPNEA, UNSPECIFIED (5) Hypocalcemia Code(s): E83.51 - HYPOCALCEMIA (6) Neuropathy Code(s): G62.9 - POLYNEUROPATHY, UNSPECIFIED (7) Abdominal pain Code(s): R10.9 - UNSPECIFIED ABDOMINAL PAIN Assessment/Plan Current Active Problems mya syndrome Anasarca (Acute) CHF (congestive heart failure) (Acute) Dyspnea (Acute) Hypocalcemia (Acute) Neuropathy (Acute) dm2 diet controlled Abnormal Lab Results 03/07/19 03/07/19 03/07/19 01:55 03:10 03:10 RBC 3.36 L Hgb 8.1 L Hct 25.1 L MCV 74.7 L MCH 24.1 L RDW 22.4 H Plt Count 72 L ABG pO2 at Pt Temp 56.4 L ABG HCO3 20.7 L ABG O2 Sat (Measured) 86.9 L ABG O2 Content 10.3 L ABG Base Excess -3.6 L BUN 72.6 H Creatinine 6.6 H Random Glucose 150 H Lactic Acid Calcium 6.9 L* Phosphorus AST ALT Alkaline Phosphatase Total Protein Albumin Crossmatch 03/07/19 03/07/19 03/07/19 03:10 06:00 09:06 RBC Hgb Hct MCV MCH RDW Plt Count ABG pO2 at Pt Temp ABG HCO3 ABG O2 Sat (Measured) ABG O2 Content ABG Base Excess BUN 75.9 H 76.5 H Creatinine 6.7 H 6.9 H Random Glucose Lactic Acid 2.3 H* Calcium 7.4 L 7.6 L Phosphorus 6.9 H AST 482 H 1102 H ALT 134 H 215 H Alkaline Phosphatase 166 H 174 H Total Protein 5.8 L 6.1 L Albumin 2.8 L 2.9 L Crossmatch 03/07/19 13:30 RBC Hgb Hct MCV MCH RDW Plt Count ABG pO2 at Pt Temp ABG HCO3 ABG O2 Sat (Measured) ABG O2 Content ABG Base Excess BUN Creatinine Random Glucose Lactic Acid Calcium Phosphorus AST ALT Alkaline Phosphatase Total Protein Albumin Crossmatch See Detail Laboratory Results - last 24 hr 03/07/19 03/07/19 03/07/19 01:44 01:55 03:10 WBC 9.5 RBC 3.36 L Hgb 8.1 L Hct 25.1 L MCV 74.7 L MCH 24.1 L MCHC 32.2 RDW 22.4 H Plt Count 72 L MPV 9.3 Anticoagulation Therapy No Result Required. Puncture Site Right radial ABG pH 7.37 ABG pCO2 at Pt Temp 36.5 ABG pO2 at Pt Temp 56.4 L ABG HCO3 20.7 L ABG O2 Sat (Measured) 86.9 L ABG O2 Content 10.3 L ABG Base Excess -3.6 L Ta Test Positive O2 Delivery Device Nasal 2 l Oxygen Flow Rate Yes Vent Mode No Result Required. Vent Rate No Result Required. Mechanical Rate No Result Required. Pressure Support Vent No Result Required. Sodium Potassium Chloride Carbon Dioxide Anion Gap BUN Creatinine Est GFR (CKD-EPI)AfAm Est GFR (CKD-EPI)NonAf POC Glucometer 194 Random Glucose Lactic Acid Calcium Phosphorus Magnesium Total Bilirubin AST ALT Alkaline Phosphatase Troponin I Total Protein Albumin Blood Type Antibody Screen Crossmatch 03/07/19 03/07/19 03/07/19 03:10 03:10 03:10 WBC RBC Hgb Hct MCV MCH MCHC RDW Plt Count MPV Anticoagulation Therapy Puncture Site ABG pH ABG pCO2 at Pt Temp ABG pO2 at Pt Temp ABG HCO3 ABG O2 Sat (Measured) ABG O2 Content ABG Base Excess Ta Test O2 Delivery Device Oxygen Flow Rate Vent Mode Vent Rate Mechanical Rate Pressure Support Vent Sodium 138 Potassium 3.6 Chloride 102 Carbon Dioxide 23 Anion Gap 13 BUN 72.6 H Creatinine 6.6 H Est GFR (CKD-EPI)AfAm 7.14 Est GFR (CKD-EPI)NonAf 6.16 POC Glucometer Random Glucose 150 H Lactic Acid 2.3 H* Calcium 6.9 L* Phosphorus Magnesium Total Bilirubin AST ALT Alkaline Phosphatase Troponin I 0.04 Total Protein Albumin Blood Type Antibody Screen Crossmatch 03/07/19 03/07/19 03/07/19 06:00 09:06 13:30 WBC RBC Hgb Hct MCV MCH MCHC RDW Plt Count MPV Anticoagulation Therapy Puncture Site ABG pH ABG pCO2 at Pt Temp ABG pO2 at Pt Temp ABG HCO3 ABG O2 Sat (Measured) ABG O2 Content ABG Base Excess Ta Test O2 Delivery Device Oxygen Flow Rate Vent Mode Vent Rate Mechanical Rate Pressure Support Vent Sodium 137 138 Potassium 3.6 3.9 Chloride 102 101 Carbon Dioxide 23 21 Anion Gap 12 16 BUN 75.9 H 76.5 H Creatinine 6.7 H 6.9 H Est GFR (CKD-EPI)AfAm 7.01 6.77 Est GFR (CKD-EPI)NonAf 6.05 5.84 POC Glucometer Random Glucose 106 91 Lactic Acid Calcium 7.4 L 7.6 L Phosphorus 6.9 H Magnesium 2.0 Total Bilirubin 0.9 0.8 AST 482 H 1102 H ALT 134 H 215 H Alkaline Phosphatase 166 H 174 H Troponin I Total Protein 5.8 L 6.1 L Albumin 2.8 L 2.9 L Blood Type O POSITIVE Antibody Screen Negative Crossmatch See Detail plan: dexamethasone suppression test acth level hba1c tsh free t4 Laboratory Tests 02/16/19 07:00 Hemoglobin A1c % 5.4
[2019-03-08 01:28] LABS: COCAINE, UR NEGATIVE ng/ml (CUTOFF=300); METHADONE, UR NEGATIVE ng/ml (CUTOFF=300); OPIATES, URI NEGATIVE ng/ml (CUTOFF=300); PHENCYCLIDINE,URINE NEGATIVE ng/ml (CUTOFF=25); URINE AMPHETAMINES NEGATIVE ng/ml (CUTOFF=500); URINE BARBITURATES NEGATIVE ng/ml (CUTOFF=200); URINE BENZODIAZEPINES NEGATIVE ng/ml (CUTOFF=200)
[2019-03-08 03:21] LABS: HYALINE CASTS 1 /lpf (0-8); PH,URINE 8.5 (5.0-8.0); URINE APPEARANCE CLEAR; URINE BACTERIA 84.3 /hpf (NEGATIVE); URINE BILIRUBIN NEGATIVE (NEGATIVE); URINE COLOR YELLOW; URINE GLUCOSE (UA) NEGATIVE (NEGATIVE); URINE KETONE NEGATIVE (NEGATIVE); URINE LEUK ESTERASE TRACE (NEGATIVE); URINE NITRITE NEGATIVE (NEGATIVE); URINE PROTEIN 3+ (NEGATIVE); URINE RBC 3 /hpf (0-4); URINE UROBILINOGEN 0.2 mg/dL (0.2-1.0); URINE WBC 10 /hpf (0-5)
[2019-03-08] MEDS: PREGABALIN 100 MG CAPSULE PO SCH ×3 (05:45→21:42)
[2019-03-08] MEDS: SIMETHICONE 80 MG TAB.CHEW (FP) PO SCH ×5 (05:45→21:40)
[2019-03-08] MEDS: POLYETHYLENE GLYCOL 3350 119 GM BTL PO SCH ×3 (05:46→21:41)
[2019-03-08 06:12] LABS: HEMATOCRIT 23.4 % (32.4-45.2); HEMOGLOBIN 7.8 GM/dL (10.7-15.3); MCH 24.2 pg (25.7-33.7); MCHC 33.3 g/dl (32.0-36.0); MEAN CELL VOLUME 72.7 fl (80-96); MEAN PLT VOLUME 8.5 fl (7.5-11.1); RBC 3.22 M/mm3 (3.60-5.2); RDW 22.2 % (11.6-15.6); WHITE BLOOD COUNT 9.7 K/mm3 (4.0-10.0)
[2019-03-08 06:36] LABS: ALBUMIN 2.8 g/dl (3.4-5.0); BILIRUBIN,TOTAL 0.8 mg/dL (0.2-1); BLOOD UREA NITROGEN 88.8 mg/dL (7-18); CALCIUM 7.4 mg/dL (8.5-10.1); PHOSPHOROUS 8.3 mg/dL (2.5-4.9); POTASSIUM 4.5 mmol/L (3.5-5.1); TOT PROT 5.7 g/dl (6.4-8.2)
[2019-03-08 06:38] LABS: CREATININE 7.6 mg/dL (0.55-1.3)
[2019-03-08] MEDS: ALBUTEROL SO4 0.083% IH SOL 2.5 MG/3 ML VIAL.NEB. NEB PRN ×3 (07:40→23:57)
--- NOTE | 2019-03-08 08:10 | PN ---
Physical Exam: SUBJECTIVE: Patient seen and examined at bedside- no acute events overnight; patients HR was much better (in the 50;s-60;s no longer in low 40's) and her pressures have been maintained well; she is still slightly lethargic but improving; she denies any CP/SOB/N/V OBJECTIVE: Vital Signs Period Temp Pulse Resp BP Sys/Haywood Pulse Ox Last 24 Hr 96.1 F-98.4 F 40-57 14-23 87-141/34-107 97-97 GENERAL: The patient is lethargic but arousable EYES: PEERLA; EOMI; no scleral icterus . NECK: no JVD; no lymphadenopathy. LUNGS:poor inspiratory effort; decreased breath sounds at the bases. HEART: Regular rate and rhythm, S1, S2 without murmur, rub or gallop. ABDOMEN: Soft, nontender; nondistended +BS EXTREMITIES: 2+ pulses, warm, well-perfused, no edema. NEUROLOGICAL: Cranial nerves II through XII grossly intact. Normal speech, gait not observed. PSYCH: Normal mood, normal affect. SKIN: Warm, dry, normal turgor, no rashes or lesions noted Laboratory Results - last 24 hr 03/07/19 03/07/19 03/08/19 09:06 13:30 00:48 WBC RBC Hgb Hct MCV MCH MCHC RDW MPV Sodium 138 Potassium 3.9 Chloride 101 Carbon Dioxide 21 Anion Gap 16 BUN 76.5 H Creatinine 6.9 H Est GFR (CKD-EPI)AfAm 6.77 Est GFR (CKD-EPI)NonAf 5.84 Random Glucose 91 Calcium 7.6 L Phosphorus 6.9 H Magnesium 2.0 Total Bilirubin 0.8 AST 1102 H ALT 215 H Alkaline Phosphatase 174 H Total Protein 6.1 L Albumin 2.9 L Urine Color Urine Appearance Urine pH Ur Specific Bath Urine Protein Urine Glucose (UA) Urine Ketones Urine Blood Urine Nitrite Urine Bilirubin Urine Urobilinogen Ur Leukocyte Esterase Urine WBC (Auto) Urine RBC (Auto) Urine Casts (Auto) U Epithel Cells (Auto) Urine Bacteria (Auto) Opiates Screen Negative Methadone Screen Negative Barbiturate Screen Negative Phencyclidine Screen Negative Ur Amphetamines Screen Negative MDMA (Ecstasy) Screen Negative Benzodiazepines Screen Negative Cocaine Screen Negative U Marijuana (THC) Screen Positive A* Blood Type O POSITIVE Antibody Screen Negative Crossmatch See Detail 03/08/19 03/08/19 03/08/19 01:00 05:35 05:35 WBC 9.7 RBC 3.22 L Hgb 7.8 L Hct 23.4 L MCV 72.7 L MCH 24.2 L MCHC 33.3 RDW 22.2 H MPV 8.5 Sodium 137 Potassium 4.5 Chloride 99 Carbon Dioxide 24 Anion Gap 13 BUN 88.8 H Creatinine 7.6 H* Est GFR (CKD-EPI)AfAm 6.02 Est GFR (CKD-EPI)NonAf 5.20 Random Glucose 101 Calcium 7.4 L Phosphorus 8.3 H Magnesium 2.0 Total Bilirubin 0.8 AST 3307 H ALT 603 H Alkaline Phosphatase 187 H Total Protein 5.7 L Albumin 2.8 L Urine Color Yellow Urine Appearance Clear Urine pH 8.5 H D Ur Specific Bath 1.017 Urine Protein 3+ H Urine Glucose (UA) Negative Urine Ketones Negative Urine Blood Negative Urine Nitrite Negative Urine Bilirubin Negative Urine Urobilinogen 0.2 Ur Leukocyte Esterase Trace Urine WBC (Auto) 10 Urine RBC (Auto) 3 Urine Casts (Auto) 1 U Epithel Cells (Auto) 4.0 Urine Bacteria (Auto) 84.3 Opiates Screen Methadone Screen Barbiturate Screen Phencyclidine Screen Ur Amphetamines Screen MDMA (Ecstasy) Screen Benzodiazepines Screen Cocaine Screen U Marijuana (THC) Screen Blood Type Antibody Screen Crossmatch Active Medications Generic Name Dose Route Start Last Admin Trade Name Freq PRN Reason Stop Dose Admin Acetaminophen 650 mg 03/07/19 04:06 Tylenol - PO Q6H PRN PAIN OR FEVER Albuterol Sulfate 1 amp 03/07/19 22:32 03/07/19 23:59 Ventolin 0.083% Nebulizer Soln - NEB 1 amp Q4H PRN Administration SHORT OF BREATH/WHEEZING Aspirin 81 mg 03/06/19 10:00 03/07/19 09:12 Asa - PO 81 mg DAILY JUANITO Administration Atorvastatin Calcium 10 mg 03/06/19 22:00 03/07/19 21:45 Lipitor - PO 10 mg HS JUANITO Administration Diltiazem HCl 360 mg 03/06/19 10:00 03/06/19 10:58 Cardizem Cd - PO 360 mg DAILY JUANITO Administration Ferrous Sulfate 325 mg 03/06/19 12:45 03/07/19 09:12 Feosol - PO 325 mg DAILY JUANITO Administration Hydralazine HCl 50 mg 03/06/19 14:00 03/06/19 15:03 Apresoline - PO 50 mg TID JUANITO Administration Lidocaine HCl 1 applic 03/06/19 11:00 Xylocaine 5% Top. Ointment TP TID PRN neuropathy Metoprolol Succinate 100 mg 03/06/19 10:00 03/06/19 10:58 Toprol Xl - PO 100 mg DAILY JUANITO Administration Nifedipine 90 mg 03/06/19 10:00 03/07/19 09:12 Procardia Xl - PO Not Given DAILY [facility] Polyethylene Glycol 17 gm 03/06/19 14:00 03/08/19 05:46 Miralax (For Daily Use) - PO Not Given TID [facility] Pramipexole Dihydrochloride 0.5 mg 03/06/19 20:00 03/07/19 21:44 Mirapex - PO 0.5 mg DAILY@2000 UJANITO Administration Pregabalin 100 mg 03/06/19 11:02 03/08/19 05:45 Lyrica - PO 100 mg TID JUANITO Administration Pyridoxine HCl 50 mg 03/06/19 10:00 03/07/19 09:12 Vitamin B6 - PO 50 mg DAILY JUANITO Administration Senna 2 tab 03/06/19 22:00 03/07/19 21:46 Senna - PO 2 tab HS JUANITO Administration Simethicone 80 mg 03/06/19 10:00 03/08/19 05:45 Mylicon - PO 80 mg Q4HWA JUANITO Administration Tramadol HCl 50 mg 03/06/19 10:59 03/06/19 11:38 Ultram - PO 50 mg Q6H PRN Administration PAIN LEVEL 6-10 Umeclidinium/Vilanterol 1 puff 03/06/19 10:00 03/07/19 13:39 Anoro Ellipta 62.5-25 Mcg Inh IH 1 puff DAILY JUANITO Administration ASSESSMENT/PLAN: 63 yo female PMHx of HTN, HLD, CAD s/p PCI 2013, PVD s/p Stent, DM (no meds), CKD Stage 4, GERD, last admission 3 weeks ago- Pneumonia, TB, COPD Exacerbation initially presented to the ED due to worsening anasarca from prednisone use, was transferred from telemetry floors due to lethargy/bradycardia/hypotension #Neuro patient currently lethargic but arousable this AM -head CT was done which was negative -holding patients lyrica for peripheral neuropathy at this moment -holding tramadol -dr hansen was initially consulted on patients arrival -monitor patients mental status -ammonia level pending #Cardio patients HR is now in the high 50's and patient is no longer hypotensive -patient now back in sinus rhythm; no longer in junctional bradycardia -holding all beta blockers and AV matthieu blockers -cardio on boards -echo pending -c/w ASA for CAD- holding lipitor in light of elevated LFTS #GI LFTS very elevated; (AST 3307, ALt 603, alk phos 187) -abdominal U/S done- pending read -holding hepatotoxic drugs -given thrombocytopenia and elevated LFTS- coags/fibrinogen pending -holding INH -will continue to trend #Heme patients platelets this AM are now 32 (were 87 on arrival) -possibly 2/2 platelet sequestering given rise in LFTS -coags/fibrinogen pending -will monitor #Pulm COPD history, TB history holding INH in light of elevated LFTS will continue with patients home inhalers monitor O2 sat 88-92% #Renal patient has CKD stage 4; took total of 250mg of tramadol 2 night ago -BUN/Cr 88/7.6; increase likely 2/2 tramdol usage and hypopoefusion -will monitor electrolytes and volume status F/E/N not on fluids monitor electrolytes sodium/diabetic controlled diet DVT PPX: SCDS B/L Problem List - Problems (1) CHF (congestive heart failure) Code(s): I50.9 - HEART FAILURE, UNSPECIFIED (2) Anemia Code(s): D64.9 - ANEMIA, UNSPECIFIED (3) CAD (coronary artery disease) Code(s): I25.10 - ATHSCL HEART DISEASE OF [place] CORONARY ARTERY W/O ANG PCTRS (4) CHF (congestive heart failure), NYHA class III Code(s): I50.9 - HEART FAILURE, UNSPECIFIED (5) CKD (chronic kidney disease) stage 5, GFR less than 15 ml/min Code(s): N18.5 - CHRONIC KIDNEY DISEASE, STAGE 5 Visit type - Emergency Visit Emergency Visit: Yes ED Registration Date: 03/06/19 Care time: The patient presented to the Emergency Department on the above date and was hospitalized for further evaluation of their emergent condition. - New Patient This patient is new to me today: No - Critical Care Critical Care patient: Yes Total Critical Care Time (in minutes): 35 Critical Care Statement: The care of this patient involved high complexity decision making to prevent further life threatening deterioration of the patient 's condition and/or to evaluate & treat vital organ system(s) failure or risk of failure.
[2019-03-08 08:25] LABS: PLATELET COUNT 37 K/MM3 (134-434)
[2019-03-08] MEDS ORDERED: PT OWN MED DRAWER 7, Y5N ONE ×4 (09:55→22:23)
[2019-03-08] MEDS: FERROUS SO4 325 MG TABLET (FP) PO SCH (10:45)
[2019-03-08] MEDS: PYRIDOXINE HCL (B-6) 50 MG TABLET (FP) PO SCH (10:45)
[2019-03-08] MEDS: ASPIRIN 81 MG CHEWABLE TABLETS PO SCH (10:45)
--- NOTE | 2019-03-08 10:51 | PN ---
Progress Note (short form) - Note Progress Note: 63 year old female history of HTN, HLD, CAD s/p PCI, pvd , ckd. Patient also have copd and pnemonia . Patient came with swelling of body and she took several tramadol dosage as she was in pain. She denies any low back pain and difficulty moving leg. She is able to hold urine. She did have mri of L spine and it showed severe spinal stenosis. she do not complaing of back pain at this time NEUROLOGICAL EXAMINATION Alert oriented x 3, no neck stiffness, sleepy and goes back to sleep if there is pause in conversation eomi, pupils reactive no face asymmetry moving all ext, lower extremity good strenght both proximal and distally sensation is normal reflex are generalized diminisehd mri of L spine showed there is severe spinal stenosis Assessment/pLAN 1. Chronic low back pain due to spinal stenosis , clinically there is no evidence of cauda equina or cord compression. Plan: Pain is under control at this time, perhaps she is not walking - Start PT once she is out of ICU, I would see her prn Thanking you so much Atul Winston MD
--- NOTE | 2019-03-08 11:38 | PN ---
Teaching Attending Note Name of Resident: Nadia Ashby ATTENDING PHYSICIAN STATEMENT I saw and evaluated the patient. I reviewed the resident's note and discussed the case with the resident. I agree with the resident's findings and plan as documented. SUBJECTIVE: Pt seen and examined in the ICU. Somnolent but arousable. Telemetry now with sinus bradycardia. OBJECTIVE: Vital Signs Period Temp Pulse Resp BP Sys/Haywood Pulse Ox Last 24 Hr 96.1 F-98.4 F 40-57 14-23 87-141/34-107 97 Intake & Output 03/05/19 03/06/19 03/07/19 03/08/19 23:59 23:59 23:59 23:59 Intake Total 840 1140 50 Output Total 200 Balance 840 940 50 Weight 97.522 kg 99.427 kg 101.151 kg 102.467 kg Gen: somnolent but arousable Heart: RRR Lung: decreased breath sounds at the bases Abd: soft, nontender Ext: no edema CBC, BMP 03/08/19 05:35 03/08/19 05:35 Active Medications Albuterol Sulfate (Ventolin 0.083% Nebulizer Soln -) 1 amp NEB Q4H PRN PRN Reason: SHORT OF BREATH/WHEEZING Last Admin: 03/08/19 11:31 Dose: 1 amp Aspirin (Asa -) 81 mg PO DAILY [facility] Last Admin: 03/08/19 10:45 Dose: 81 mg Atorvastatin Calcium (Lipitor -) 10 mg PO HS [facility] Last Admin: 03/07/19 21:45 Dose: 10 mg Diltiazem HCl (Cardizem Cd -) 360 mg PO DAILY [facility] Last Admin: 03/06/19 10:58 Dose: 360 mg Ferrous Sulfate (Feosol -) 325 mg PO DAILY [facility] Last Admin: 03/08/19 10:45 Dose: 325 mg Hydralazine HCl (Apresoline -) 50 mg PO TID [facility] Last Admin: 03/06/19 15:03 Dose: 50 mg Lidocaine HCl (Xylocaine 5% Top. Ointment) 1 applic TP TID PRN PRN Reason: neuropathy Metoprolol Succinate (Toprol Xl -) 100 mg PO DAILY [facility] Last Admin: 03/06/19 10:58 Dose: 100 mg Nifedipine (Procardia Xl -) 90 mg PO DAILY [facility] Last Admin: 03/07/19 09:12 Dose: Not Given Polyethylene Glycol (Miralax (For Daily Use) -) 17 gm PO TID [facility] Last Admin: 03/08/19 05:46 Dose: Not Given Pramipexole Dihydrochloride (Mirapex -) 0.5 mg PO DAILY@1999 [facility] Last Admin: 03/07/19 21:44 Dose: 0.5 mg Pregabalin (Lyrica -) 100 mg PO TID [facility] Last Admin: 03/08/19 05:45 Dose: 100 mg Pyridoxine HCl (Vitamin B6 -) 50 mg PO DAILY [facility] Last Admin: 03/08/19 10:45 Dose: 50 mg Senna (Senna -) 2 tab PO HS [facility] Last Admin: 03/07/19 21:46 Dose: 2 tab Simethicone (Mylicon -) 80 mg PO Q4HWA [facility] Last Admin: 03/08/19 11:10 Dose: 80 mg Tramadol HCl (Ultram -) 50 mg PO Q6H PRN PRN Reason: PAIN LEVEL 6-10 Last Admin: 03/06/19 11:38 Dose: 50 mg Umeclidinium/Vilanterol (Anoro Ellipta 62.5-25 Mcg Inh) 1 puff IH DAILY [facility] Last Admin: 03/07/19 13:39 Dose: 1 puff ASSESSMENT AND PLAN: Symptomatic Bradycardia LV Diastolic Dysfunction CAD CKD IV Elevated LFTs Thrombocytopenia COPD DM HTN Hyperlipidemia - hold all AV matthieu agents - echocardiogram - abdominal ultrasound - check coags, fibrinogen - aspiration precautions - O2 to keep SPo2 >90% - inhaled bronchodilators - can monitor on telemetry
--- NOTE | 2019-03-08 11:44 | EKG ---
Test Reason : Blood Pressure : / mmHG Vent. Rate : 043 BPM Atrial Rate : 043 BPM P-R Int : 000 ms QRS Dur : 096 ms QT Int : 508 ms P-R-T Axes : 000 026 031 degrees QTc Int : 429 ms POSSIBLE JUNCTIONAL BRADYCARDIA NONSPECIFIC ST ABNORMALITY ABNORMAL ECG WHEN COMPARED WITH ECG OF 06-MAR-2019 23:04, NO SIGNIFICANT CHANGE WAS FOUND Confirmed by ANIYAH SIDDIQI MD ([id number]) on 03/08/2019 11:44:09 AM Referred By: Yolis FOWLER Confirmed By:ANIYAH SIDDIQI MD
--- NOTE | 2019-03-08 11:46 | EKG ---
Test Reason : Blood Pressure : / mmHG Vent. Rate : 046 BPM Atrial Rate : 000 BPM P-R Int : 000 ms QRS Dur : 078 ms QT Int : 480 ms P-R-T Axes : 000 048 071 degrees QTc Int : 420 ms [id number] JUNCTIONAL RHYTHM UNDERLYING BASELINE ARTIFACT NONSPECIFIC ST ABNORMALITY ABNORMAL ECG WHEN COMPARED WITH ECG OF 06-MAR-2019 17:45, NO SIGNIFICANT CHANGE WAS FOUND Confirmed by ANIYAH SIDDIQI MD ([id number]) on 03/08/2019 11:45:56 AM Referred By: Confirmed By:ANIYAH SIDDIQI MD
--- NOTE | 2019-03-08 11:47 | EKG ---
Test Reason : Blood Pressure : / mmHG Vent. Rate : 045 BPM Atrial Rate : 326 BPM P-R Int : 000 ms QRS Dur : 090 ms QT Int : 454 ms P-R-T Axes : 000 031 056 degrees QTc Int : 392 ms JUNCTIONAL RHYTHM NONSPECIFIC ST AND T WAVE ABNORMALITY ABNORMAL ECG WHEN COMPARED WITH ECG OF 05-MAR-2019 23:25, POSSIBLE RHYTHM CHANGE Confirmed by ANIYAH SIDDIQI MD ([id number]) on 03/08/2019 11:47:14 AM Referred By: Confirmed By:ANIYAH SIDDIQI MD
[2019-03-08 12:11] LABS: INR 1.16 (0.83-1.09); PROTHROMBIN TIME (PATIENT) 13.7 SEC (9.7-13.0)
[2019-03-08 12:14] LABS: ACTIVATED PTT 33.7 SECONDS (25.2-36.5)
[2019-03-08 12:15] LABS: ALLENS TEST POSITIVE; ARTERIAL BLD GAS O2 SATURATION 92.1 % (95-98); ARTERIAL BLOOD GAS BASE EXCESS -3.1 meq/l (-2-2); ARTERIAL BLOOD GAS PO2 70.7 mmHg (80-105)
[2019-03-08] MEDS: UMECLIDINIUM/VILANTEROL (ANORO) 62.5/25 MCG INHALER IH SCH (12:23)
[2019-03-08] MEDS ORDERED: SODIUM CHLORIDE 500 ML IV SCH (13:00)
--- NOTE | 2019-03-08 13:01 | ECHO ---
Name: KRISTACHERRYN Exam:Adult Echocardiogram Study Date: 03/08/2019 09:04 AM Age: 63 yrs Reason For Study: CHF Height: 64 in Weight: 223 lb BSA: 2.0 m2 BP: 134/89 mmHg MMode/2D Measurements & Calculations IVSd: 0.96 cm Ao root diam: 2.7 cm LVIDd: 4.8 cm LA dimension: 4.5 cm LVIDs: 3.1 cm LVPWd: 1.0 cm EDV(Teich): 106.5 ml LVOT diam: 1.9 cm ESV(Teich): 36.7 ml LAV (MOD-bp): 98.0 ml Doppler Measurements & Calculations MR max leon: 509.6 cm/sec TR max leon: 259.3 cm/sec MR max P.0 mmHg TR max P.9 mmHg Med Peak E' Leon: 4.7 cm/sec Lat Peak E' Leon: 7.8 cm/sec Procedure The study was technically adequate with some images being suboptimal in quality. Left Ventricle The left ventricular size, thickness and function are normal. Ejection Fraction = 65-70%. Right Ventricle The right ventricle is normal in size and function. Atria The left atrium is mildly dilated. Right atrial size is normal. Mitral Valve The mitral valve is normal. There is mild to moderate mitral regurgitation. Tricuspid Valve The tricuspid valve is not well visualized. There is moderate to severe tricuspid regurgitation. Righ t ventricular systolic pressure is 27 mmhg. Aortic Valve The aortic valve opens well. There is mild aortic sclerosis.;. No aortic regurgitation is present. Pulmonic Valve The pulmonic valve is not well visualized. Great Vessels The aortic root is normal size. Pericardium/Pleura There is no pericardial effusion. Interpretation Summary In comparison to previous study dated 07/10/2018, the severity of tricuspid regurgitation has increas ed. Clinical correlation recommended. The left ventricular size, thickness and function are normal There is mild aortic sclerosis.; The left atrium is mildly dilated. There is mild to moderate mitral regurgitation. Ejection Fraction = 65-70%. In comparison to previous study dated 07/10/2018, the severity of tricuspid regurgitation has increas ed. Clinical correlation recommended. Obey More MD 03/08/2019 01:00 PM
[2019-03-08 13:10] VITALS: BMI 38.6
--- NOTE | 2019-03-08 13:34 | PN ---
Progress Note, Physician Chief Complaint: seen in icu sleepy and is arousable - Current Medication List Current Medications: Active Medications Albuterol Sulfate (Ventolin 0.083% Nebulizer Soln -) 1 amp NEB Q4H PRN PRN Reason: SHORT OF BREATH/WHEEZING Last Admin: 03/08/19 11:31 Dose: 1 amp Aspirin (Asa -) 81 mg PO DAILY [facility] Last Admin: 03/08/19 10:45 Dose: 81 mg Atorvastatin Calcium (Lipitor -) 10 mg PO HS [facility] Last Admin: 03/07/19 21:45 Dose: 10 mg Diltiazem HCl (Cardizem Cd -) 360 mg PO DAILY [facility] Last Admin: 03/06/19 10:58 Dose: 360 mg Ferrous Sulfate (Feosol -) 325 mg PO DAILY [facility] Last Admin: 03/08/19 10:45 Dose: 325 mg Hydralazine HCl (Apresoline -) 50 mg PO TID [facility] Last Admin: 03/06/19 15:03 Dose: 50 mg Sodium Chloride (Normal Saline -) 500 mls @ 42 mls/hr IV ASDIR [facility] Lidocaine HCl (Xylocaine 5% Top. Ointment) 1 applic TP TID PRN PRN Reason: neuropathy Metoprolol Succinate (Toprol Xl -) 100 mg PO DAILY [facility] Last Admin: 03/06/19 10:58 Dose: 100 mg Nifedipine (Procardia Xl -) 90 mg PO DAILY [facility] Last Admin: 03/07/19 09:12 Dose: Not Given Polyethylene Glycol (Miralax (For Daily Use) -) 17 gm PO TID [facility] Last Admin: 03/08/19 05:46 Dose: Not Given Pramipexole Dihydrochloride (Mirapex -) 0.5 mg PO DAILY@1999 [facility] Last Admin: 03/07/19 21:44 Dose: 0.5 mg Pregabalin (Lyrica -) 100 mg PO TID [facility] Last Admin: 03/08/19 05:45 Dose: 100 mg Pyridoxine HCl (Vitamin B6 -) 50 mg PO DAILY [facility] Last Admin: 03/08/19 10:45 Dose: 50 mg Senna (Senna -) 2 tab PO [facility] Last Admin: 03/07/19 21:46 Dose: 2 tab Simethicone (Mylicon -) 80 mg PO Q4HWA [facility] Last Admin: 03/08/19 11:10 Dose: 80 mg Tramadol HCl (Ultram -) 50 mg PO Q6H PRN PRN Reason: PAIN LEVEL 6-10 Last Admin: 03/06/19 11:38 Dose: 50 mg Umeclidinium/Vilanterol (Anoro Ellipta 62.5-25 Mcg Inh) 1 puff IH DAILY [facility] Last Admin: 03/08/19 12:23 Dose: Not Given - Objective Vital Signs: Vital Signs Temperature 98.6 F 03/08/19 13:00 Pulse Rate 60 03/08/19 13:00 Respiratory Rate 14 03/08/19 13:00 Blood Pressure 124/94 03/08/19 13:00 O2 Sat by Pulse Oximetry (%) 97 03/07/19 21:00 Constitutional: Yes: Calm Cardiovascular: Yes: Regular Rate and Rhythm, S1, S2 Respiratory: Yes: CTA Bilaterally Gastrointestinal: Yes: Normal Bowel Sounds, Soft Labs: CBC, BMP 03/08/19 05:35 03/08/19 05:35 INR, PTT INR 1.16 (0.83-1.09) H 03/08/19 11:30 Fibrinogen 493.0 mg/dL (238-498) 03/08/19 11:30 Problem List - Problems (1) Bradycardia Assessment/Plan: hold all AV blocking agents Code(s): R00.1 - BRADYCARDIA, UNSPECIFIED (2) Elevated LFTs Assessment/Plan: abdominal sono hold INH prophylaxis Code(s): R94.5 - ABNORMAL RESULTS OF LIVER FUNCTION STUDIES (3) Latent tuberculosis Assessment/Plan: given the increase in LFT hold INH prophylaxis for now (4) CKD (chronic kidney disease) Assessment/Plan: hold diuretics ,monitor BP- hold all anti htn meds renal team on board Code(s): N18.9 - CHRONIC KIDNEY DISEASE, UNSPECIFIED
[2019-03-08] MEDS ORDERED: LIDOCAINE HCL 5% TOP OINTMENT 50 GM TUBE TP PRN (14:09)
[2019-03-08] MEDS ORDERED: DEXAMETHASONE 0.5 MG TABLET PO ONE (14:09)
[2019-03-08] MEDS ORDERED: traMADol HCL 50 MG TABLET PO ONE (14:09)
--- NOTE | 2019-03-08 14:52 | PN ---
Progress Note, Physician History of Present Illness: Pt seen and examined at bedside. She is awake and alert. She denies shortness of breath. - Current Medication List Current Medications: Active Medications Albuterol Sulfate (Ventolin 0.083% Nebulizer Soln -) 1 amp NEB Q4H PRN PRN Reason: SHORT OF BREATH/WHEEZING Aspirin (Asa -) 81 mg PO DAILY [facility] Atorvastatin Calcium (Lipitor -) 10 mg PO HS [facility] Dexamethasone (Decadron -) 1 mg PO ONCE ONE Stop: 03/08/19 14:10 Diltiazem HCl (Cardizem Cd -) 360 mg PO DAILY [facility] Ferrous Sulfate (Feosol -) 325 mg PO DAILY [facility] Sodium Chloride (Normal Saline -) 500 mls @ 42 mls/hr IV ASDIR [facility] Sodium Chloride (Normal Saline -) 1,000 mls @ 100 mls/hr IV ASDIR [facility] Stop: 03/08/19 21:59 Lidocaine HCl (Xylocaine 5% Top. Ointment) 1 applic TP TID PRN PRN Reason: neuropathy Metoprolol Succinate (Toprol Xl -) 100 mg PO DAILY [facility] Nifedipine (Procardia Xl -) 90 mg PO DAILY [facility] Polyethylene Glycol (Miralax (For Daily Use) -) 17 gm PO TID [facility] Pramipexole Dihydrochloride (Mirapex -) 0.5 mg PO DAILY@2000 [facility] Pregabalin (Lyrica -) 100 mg PO TID [facility] Pyridoxine HCl (Vitamin B6 -) 50 mg PO DAILY [facility] Senna (Senna -) 2 tab PO HS [facility] Simethicone (Mylicon -) 80 mg PO Q4HWA [facility] Tramadol HCl (Ultram -) 50 mg PO ONCE ONE Stop: 03/08/19 14:10 Umeclidinium/Vilanterol (Anoro Ellipta 62.5-25 Mcg Inh) 1 puff IH DAILY [facility] - Objective Vital Signs: Vital Signs Temperature 98.6 F 03/08/19 13:00 Pulse Rate 60 03/08/19 13:00 Respiratory Rate 14 03/08/19 13:00 Blood Pressure 124/94 03/08/19 13:00 O2 Sat by Pulse Oximetry (%) 97 03/07/19 21:00 Constitutional: Yes: Calm Eyes: Yes: Conjunctiva Clear HENT: Yes: Atraumatic Cardiovascular: Yes: S1, S2 Respiratory: Yes: Regular Gastrointestinal: Yes: Soft Genitourinary: Yes: WNL Musculoskeletal: Yes: WNL Edema: No Neurological: Yes: Oriented Psychiatric: Yes: Oriented Labs: CBC, BMP 03/08/19 05:35 03/08/19 05:35 INR, PTT INR 1.16 (0.83-1.09) H 03/08/19 11:30 Fibrinogen 493.0 mg/dL (238-498) 03/08/19 11:30 Problem List - Problems (1) Anasarca Code(s): R60.1 - GENERALIZED EDEMA (2) CHF (congestive heart failure) Code(s): I50.9 - HEART FAILURE, UNSPECIFIED Assessment/Plan Current Medications Generic Name Dose Route Start Last Admin Trade Name Freq PRN Reason Stop Dose Admin Albuterol Sulfate 1 amp 03/08/19 14:09 Ventolin 0.083% Nebulizer Soln - NEB Q4H PRN SHORT OF BREATH/WHEEZING Aspirin 81 mg 03/09/19 10:00 Asa - PO DAILY [facility] Atorvastatin Calcium 10 mg 03/08/19 22:00 Lipitor - PO HS [facility] Dexamethasone 1 mg 03/08/19 14:09 Decadron - PO 03/08/19 14:10 ONCE ONE Diltiazem HCl 360 mg 03/09/19 10:00 Cardizem Cd - PO DAILY [facility] Ferrous Sulfate 325 mg 03/09/19 10:00 Feosol - PO DAILY [facility] Sodium Chloride 500 mls @ 42 mls/hr 03/08/19 13:00 Normal Saline - IV ASDIR [facility] Sodium Chloride 1,000 mls @ 100 mls/hr 03/08/19 15:00 Normal Saline - IV 03/08/19 21:59 ASDIR [facility] Lidocaine HCl 1 applic 03/08/19 14:09 Xylocaine 5% Top. Ointment TP TID PRN neuropathy Metoprolol Succinate 100 mg 03/09/19 10:00 Toprol Xl - PO DAILY [facility] Nifedipine 90 mg 03/09/19 10:00 Procardia Xl - PO DAILY [facility] Polyethylene Glycol 17 gm 03/08/19 22:00 Miralax (For Daily Use) - PO TID [facility] Pramipexole Dihydrochloride 0.5 mg 03/08/19 20:00 Mirapex - PO DAILY@2000 [facility] Pregabalin 100 mg 03/08/19 22:00 Lyrica - PO TID [facility] Pyridoxine HCl 50 mg 03/09/19 10:00 Vitamin B6 - PO DAILY [facility] Senna 2 tab 03/08/19 22:00 Senna - PO HS [facility] Simethicone 80 mg 03/08/19 18:00 Mylicon - PO Q4HWA [facility] Tramadol HCl 50 mg 03/08/19 14:09 Ultram - PO 03/08/19 14:10 ONCE ONE Umeclidinium/Vilanterol 1 puff 03/09/19 10:00 Anoro Ellipta 62.5-25 Mcg Inh IH DAILY [facility] Impression 1. CKD 2. CHF 3. PVD 4. HTN 5. CAD 6. COPD 7. Gout 8. constipation 9. anemia Plan - repeat labs in am - will give fluids - pt does not want HD at this time as she says she is going to get a transplant. I explained that her numbers are worsening and we may have to start. She will think about it. 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
[2019-03-08] MEDS ORDERED: SODIUM CHLORIDE 1,000 ML IV SCH (15:00)
--- NOTE | 2019-03-08 15:57 | PN ---
Progress Note, Physician Chief Complaint: Presently without complaints History of Present Illness: This is a 63 year old female with a PMH of PMHx of HTN, HLD, GERD, CAD s/p PCI (2013), CKD Stage IV, PVD s/p 1 extremity stent, COPD, DM, undergoing evaluation for renal transplant at [facility], has been seen in our office for preop renal transplant evaluation. Echo 03/2018 showed Increased LVEF, mild valvular abnl and Nuclear stress test at that time showed Normal perfusion, she has had prior admissions for COPD and PNA, she is now admitted with c/o facial swelling , intermittent LE edema and generalized body edema, as well as LE weakness, burning of feet. She was transferred to ICU after found lethargic, hypotensive and bradycardic. Later discovered that she had taken multiple Tramadol doses from her home supply in addition to what she is receiving in the hospital. 03/08/19 Awake and alert. Vital signs have improved Repeat echo noted. EF 65 - 70% Increased TR noted - Current Medication List Current Medications: Active Medications Albuterol Sulfate (Ventolin 0.083% Nebulizer Soln -) 1 amp NEB Q4H PRN PRN Reason: SHORT OF BREATH/WHEEZING Aspirin (Asa -) 81 mg PO DAILY [facility] Atorvastatin Calcium (Lipitor -) 10 mg PO HS [facility] Dexamethasone (Decadron -) 1 mg PO ONCE ONE Stop: 03/08/19 14:10 Diltiazem HCl (Cardizem Cd -) 360 mg PO DAILY [facility] Ferrous Sulfate (Feosol -) 325 mg PO DAILY [facility] Sodium Chloride (Normal Saline -) 1,000 mls @ 100 mls/hr IV ASDIR [facility] Stop: 03/08/19 21:59 Lidocaine HCl (Xylocaine 5% Top. Ointment) 1 applic TP TID PRN PRN Reason: neuropathy Metoprolol Succinate (Toprol Xl -) 100 mg PO DAILY [facility] Nifedipine (Procardia Xl -) 90 mg PO DAILY [facility] Polyethylene Glycol (Miralax (For Daily Use) -) 17 gm PO TID [facility] Pramipexole Dihydrochloride (Mirapex -) 0.5 mg PO DAILY@2000 [facility] Pregabalin (Lyrica -) 100 mg PO TID [facility] Pyridoxine HCl (Vitamin B6 -) 50 mg PO DAILY [facility] Senna (Senna -) 2 tab PO HS [facility] Simethicone (Mylicon -) 80 mg PO Q4HWA [facility] Tramadol HCl (Ultram -) 50 mg PO ONCE ONE Stop: 03/08/19 14:10 Umeclidinium/Vilanterol (Anoro Ellipta 62.5-25 Mcg Inh) 1 puff IH DAILY [facility] - Objective Vital Signs: Vital Signs Temperature 98.6 F 03/08/19 13:00 Pulse Rate 60 03/08/19 13:00 Respiratory Rate 14 03/08/19 13:00 Blood Pressure 124/94 03/08/19 13:00 O2 Sat by Pulse Oximetry (%) 97 03/07/19 21:00 Constitutional: Yes: Well Nourished, No Distress Cardiovascular: Yes: Regular Rate and Rhythm (S1 S2), Rub Respiratory: Yes: CTA Bilaterally Gastrointestinal: Yes: Normal Bowel Sounds, Soft Extremities: Yes: WNL Edema: LLE: Trace, RLE: Trace Neurological: Yes: Alert, Oriented Labs: CBC, BMP 03/08/19 05:35 03/08/19 05:35 INR, PTT INR 1.16 (0.83-1.09) H 03/08/19 11:30 Fibrinogen 493.0 mg/dL (238-498) 03/08/19 11:30 Assessment/Plan 63 year old female with a PMH of PMHx of HTN, HLD, GERD, CAD s/p PCI (2013), CKD Stage IV, PVD s/p 1 extremity stent, COPD, DM, undergoing evaluation for renal transplant at [facility], has been seen in our office for preop renal transplant evaluation. Echo 03/2018 showed Increased LVEF, mild valvular abnl and Nuclear stress test at that time showed Normal perfusion, she has had prior admissions for COPD and PNA, she is now admitted with c/o facial swelling, intermittent LE edema and generalized body edema, as well as LE weakness, burning of feet. She was transferred to ICU after found lethargic, hypotensive and bradycardic. Later discovered that she had taken multiple Tramadol doses from her home supply in addition to what she is receiving in the hospital. Vital signs have improved No longer with bradycardia or hypotension No indication for a PPM Hemodyncamically stable Can discontinue telemetry No additional inpatient cardiac work up is needed at this time Please have her should follow up in the office as outpatient for preoperative cardiac risk evaluation prior to renal transplant
[2019-03-08] MEDS: SENNOSIDES 8.6MG TABLET (FP) PO SCH (21:40)
[2019-03-08] MEDS: ATORVASTATIN CA 10 MG TABLET (FP) PO SCH (21:41)
[2019-03-08] MEDS: PRAMIPEXOLE DIHYDROCHLORIDE 0.5 MG TABLET PO SCH (21:42)
[2019-03-09] MEDS: SIMETHICONE 80 MG TAB.CHEW (FP) PO SCH ×6 (05:44→22:33)
[2019-03-09] MEDS: PREGABALIN 100 MG CAPSULE PO SCH ×3 (05:44→22:16)
[2019-03-09] MEDS: POLYETHYLENE GLYCOL 3350 119 GM BTL PO SCH ×3 (05:44→22:16)
[2019-03-09 07:59] LABS: ALBUMIN 2.7 g/dl (3.4-5.0); BILIRUBIN,TOTAL 0.9 mg/dL (0.2-1); BLOOD UREA NITROGEN 89.3 mg/dL (7-18); CALCIUM 7.4 mg/dL (8.5-10.1); MAGNESIUM 2.2 mg/dL (1.8-2.4); PHOSPHOROUS 7.2 mg/dL (2.5-4.9); POTASSIUM 3.8 mmol/L (3.5-5.1); TOT PROT 5.7 g/dl (6.4-8.2)
[2019-03-09] MEDS: PRAMIPEXOLE DIHYDROCHLORIDE 0.5 MG TABLET PO SCH ×2 (08:14→22:15)
[2019-03-09 08:31] LABS: HEMOGLOBIN 7.6 GM/dL (10.7-15.3); MCH 24.3 pg (25.7-33.7); MEAN CELL VOLUME 73.7 fl (80-96); MEAN PLT VOLUME 9.4 fl (7.5-11.1); RBC 3.12 M/mm3 (3.60-5.2); WHITE BLOOD COUNT 6.4 K/mm3 (4.0-10.0)
[2019-03-09 08:44] LABS: CREATININE 7.5 mg/dL (0.55-1.3)
[2019-03-09] MEDS ORDERED: PT OWN MED DRAWER 7, Y5N ONE ×3 (09:10→12:54)
[2019-03-09] MEDS ORDERED: FERROUS SO4 325 MG TABLET (FP) PO SCH (10:00)
[2019-03-09] MEDS ORDERED: PYRIDOXINE HCL (B-6) 50 MG TABLET (FP) PO SCH (10:00)
[2019-03-09] MEDS ORDERED: UMECLIDINIUM/VILANTEROL (ANORO) 62.5/25 MCG INHALER IH SCH (10:00)
[2019-03-09] MEDS ORDERED: NIFEdipine E.R. 90 MG TABLET (FP) PO SCH (10:00)
[2019-03-09] MEDS ORDERED: ASPIRIN 81 MG CHEWABLE TABLETS PO SCH (10:00)
[2019-03-09 10:42] LABS: PLATELET COUNT 38 K/MM3 (134-434)
--- NOTE | 2019-03-09 10:57 | PN ---
Progress Note (short form) - Note Progress Note: NEUROLOGY PROGRESS: This 63 yo RH woman has HHS 4x/day Mon-Sat. Last seen by me in consultation 02/15. PMHX: HTN, HLD, GERD, former smoker, CAD s/p PCI, CRI stage IV, PVD s/p stenting , COPD, DM. On: ASA 81, metoprolol, simvastatin, prednisone, oxycodone-APAP 5-325 q6H, furosemide, nifedipine, hydralazine. Surgical history: ventral hernia repair and laproscopic gastric banding. Was started on pramipexole 0.25 mg and increased to 0.5 mg HS last visit, however patient reports this was not prescribed on discharge. She has worsening of "burning" pains in R foot, and admittedly took her own supply of tramadol from prior pain consultations. She was then transferred to ICU due to hypotension and "lethargy" and opioids were intermittently held and orientation improved. Today, complains of "burning" and "uncontrolled" shaking in feet while in bed. Cr/BUN= 7.5/89 H/H= 05/23 SU: Obese. Neg SLR. NEURO: Awake, alert, oriented x 3. CNII-CNXII: EOM's full. Full graf. No facial. Motor: No drift. Strength normal including hip flexors. Reflexes normal, including AJ's. Toes downgoing. Coordination: No FTN dystaxia. Sensation: Normal to vibration. 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 Suggest: Observe patient on pramipexole 0.5 mg po HS as just resumed Follow BP and orthostatic BP's Check Fe++, TIBC, Ferritin levels Consider lower titration of Lyrica and not indicated with renal impairment Consider HD or ambulatory PD while awaiting kidney transplant as this might improve RLS pains Neuro f/u as outpatient for EMG/NCS and titration of meds Thank you very much, Shahab Krishnan MD
--- NOTE | 2019-03-09 12:48 | PN ---
Progress Note, Physician History of Present Illness: Pt seen and examined at bedside. She is awake and appears comfortable. We discussed HD today and she wants to hold off. - Current Medication List Current Medications: Active Medications Albuterol Sulfate (Ventolin 0.083% Nebulizer Soln -) 1 amp NEB Q4H PRN PRN Reason: SHORT OF BREATH/WHEEZING Last Admin: 03/08/19 23:57 Dose: 1 amp Aspirin (Asa -) 81 mg PO DAILY [facility] Last Admin: 03/09/19 09:22 Dose: 81 mg Atorvastatin Calcium (Lipitor -) 10 mg PO HS [facility] Last Admin: 03/08/19 21:41 Dose: 10 mg Calcium Acetate (Phoslo -) 667 mg PO TIDCM [facility] Dexamethasone (Decadron -) 1 mg PO ONCE ONE Stop: 03/08/19 14:10 Diltiazem HCl (Cardizem Cd -) 360 mg PO DAILY [facility] Last Admin: 03/09/19 09:23 Dose: 360 mg Ferrous Sulfate (Feosol -) 325 mg PO DAILY [facility] Last Admin: 03/09/19 09:23 Dose: 325 mg Lidocaine HCl (Xylocaine 5% Top. Ointment) 1 applic TP TID PRN PRN Reason: neuropathy Metoprolol Succinate (Toprol Xl -) 100 mg PO DAILY [facility] Last Admin: 03/09/19 09:23 Dose: 100 mg Nifedipine (Procardia Xl -) 90 mg PO DAILY [facility] Last Admin: 03/09/19 09:23 Dose: 90 mg Polyethylene Glycol (Miralax (For Daily Use) -) 17 gm PO TID [facility] Last Admin: 03/09/19 05:44 Dose: 17 gm Pramipexole Dihydrochloride (Mirapex -) 0.5 mg PO DAILY@1999 [facility] Last Admin: 03/08/19 21:42 Dose: 0.5 mg Pregabalin (Lyrica -) 100 mg PO TID [facility] Last Admin: 03/09/19 05:44 Dose: Not Given Pyridoxine HCl (Vitamin B6 -) 50 mg PO DAILY [facility] Last Admin: 03/09/19 09:26 Dose: Not Given Senna (Senna -) 2 tab PO HS [facility] Last Admin: 03/08/19 21:40 Dose: 2 tab Simethicone (Mylicon -) 80 mg PO Q4HWA [facility] Last Admin: 03/09/19 09:32 Dose: 80 mg Tramadol HCl (Ultram -) 50 mg PO ONCE ONE Stop: 03/08/19 14:10 Umeclidinium/Vilanterol (Anoro Ellipta 62.5-25 Mcg Inh) 1 puff IH DAILY [facility] - Objective Vital Signs: Vital Signs Temperature 98.3 F 03/09/19 10:00 Pulse Rate 65 03/09/19 10:00 Respiratory Rate 18 03/09/19 10:00 Blood Pressure 128/64 03/09/19 10:00 O2 Sat by Pulse Oximetry (%) 98 03/09/19 10:00 Constitutional: Yes: Calm Eyes: Yes: Conjunctiva Clear HENT: Yes: Atraumatic Neck: Yes: Supple Cardiovascular: Yes: S1, S2 Respiratory: Yes: CTA Bilaterally Gastrointestinal: Yes: Soft Genitourinary: Yes: WNL Musculoskeletal: Yes: WNL Edema: No Neurological: Yes: Oriented Psychiatric: Yes: Oriented Labs: CBC, BMP 03/09/19 05:30 03/09/19 05:30 INR, PTT INR 1.16 (0.83-1.09) H 03/08/19 11:30 Fibrinogen 493.0 mg/dL (238-498) 03/08/19 11:30 Problem List - Problems (1) Anasarca Code(s): R60.1 - GENERALIZED EDEMA (2) CHF (congestive heart failure) Code(s): I50.9 - HEART FAILURE, UNSPECIFIED Assessment/Plan Current Medications Generic Name Dose Route Start Last Admin Trade Name Freq PRN Reason Stop Dose Admin Albuterol Sulfate 1 amp 03/08/19 14:09 03/08/19 23:57 Ventolin 0.083% Nebulizer Soln - NEB 1 amp Q4H PRN Administration SHORT OF BREATH/WHEEZING Aspirin 81 mg 03/09/19 10:00 03/09/19 09:22 Asa - PO 81 mg DAILY [facility] Administration Atorvastatin Calcium 10 mg 03/08/19 22:00 03/08/19 21:41 Lipitor - PO 10 mg HS [facility] Administration Calcium Acetate 667 mg 03/09/19 17:30 Phoslo - PO TIDCM [facility] Dexamethasone 1 mg 03/08/19 14:09 Decadron - PO 03/08/19 14:10 ONCE ONE Diltiazem HCl 360 mg 03/09/19 10:00 03/09/19 09:23 Cardizem Cd - PO 360 mg DAILY [facility] Administration Ferrous Sulfate 325 mg 03/09/19 10:00 03/09/19 09:23 Feosol - PO 325 mg DAILY [facility] Administration Lidocaine HCl 1 applic 03/08/19 14:09 Xylocaine 5% Top. Ointment TP TID PRN neuropathy Metoprolol Succinate 100 mg 03/09/19 10:00 03/09/19 09:23 Toprol Xl - PO 100 mg DAILY [facility] Administration Nifedipine 90 mg 03/09/19 10:00 03/09/19 09:23 Procardia Xl - PO 90 mg DAILY [facility] Administration Polyethylene Glycol 17 gm 03/08/19 22:00 03/09/19 05:44 Miralax (For Daily Use) - PO 17 gm TID [facility] Administration Pramipexole Dihydrochloride 0.5 mg 03/08/19 20:00 03/08/19 21:42 Mirapex - PO 0.5 mg DAILY@1999 [facility] Administration Pregabalin 100 mg 03/08/19 22:00 03/09/19 05:44 Lyrica - PO Not Given TID [facility] Pyridoxine HCl 50 mg 03/09/19 10:00 03/09/19 09:26 Vitamin B6 - PO Not Given DAILY [facility] Senna 2 tab 03/08/19 22:00 03/08/19 21:40 Senna - PO 2 tab HS [facility] Administration Simethicone 80 mg 03/08/19 18:00 03/09/19 09:32 Mylicon - PO 80 mg Q4HWA [facility] Administration Tramadol HCl 50 mg 03/08/19 14:09 Ultram - PO 03/08/19 14:10 ONCE ONE Umeclidinium/Vilanterol 1 puff 03/09/19 10:00 Anoro Ellipta 62.5-25 Mcg Inh IH DAILY [facility] Impression 1. CKD 2. CHF 3. PVD 4. HTN 5. CAD 6. COPD 7. Gout 8. constipation 9. 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
[2019-03-09] MEDS ORDERED: SODIUM CHLORIDE 0.45% 1,000 ML IV SCH (13:00)
--- NOTE | 2019-03-09 13:44 | PN ---
Progress Note, Physician Chief Complaint: Bradycardia Elevated LFT CKD History of Present Illness: Previous notes and events reviewed awake and alert NAD denies chest pain or SOB patient sts that she is hallucinating, seeing a little boy and a man in her room - Current Medication List Current Medications: Active Medications Albuterol Sulfate (Ventolin 0.083% Nebulizer Soln -) 1 amp NEB Q4H PRN PRN Reason: SHORT OF BREATH/WHEEZING Last Admin: 03/08/19 23:57 Dose: 1 amp Aspirin (Asa -) 81 mg PO DAILY [facility] Last Admin: 03/09/19 09:22 Dose: 81 mg Atorvastatin Calcium (Lipitor -) 10 mg PO HS [facility] Last Admin: 03/08/19 21:41 Dose: 10 mg Calcium Acetate (Phoslo -) 667 mg PO TIDCM [facility] Dexamethasone (Decadron -) 1 mg PO ONCE ONE Stop: 03/08/19 14:10 Diltiazem HCl (Cardizem Cd -) 360 mg PO DAILY [facility] Last Admin: 03/09/19 09:23 Dose: 360 mg Ferrous Sulfate (Feosol -) 325 mg PO DAILY [facility] Last Admin: 03/09/19 09:23 Dose: 325 mg Sodium Chloride (1/2 Normal Saline) 1,000 mls @ 50 mls/hr IV ASDIR [facility] Stop: 03/10/19 12:48 Lidocaine HCl (Xylocaine 5% Top. Ointment) 1 applic TP TID PRN PRN Reason: neuropathy Metoprolol Succinate (Toprol Xl -) 100 mg PO DAILY [facility] Last Admin: 03/09/19 09:23 Dose: 100 mg Nifedipine (Procardia Xl -) 90 mg PO DAILY [facility] Last Admin: 03/09/19 09:23 Dose: 90 mg Polyethylene Glycol (Miralax (For Daily Use) -) 17 gm PO TID [facility] Last Admin: 03/09/19 05:44 Dose: 17 gm Pramipexole Dihydrochloride (Mirapex -) 0.5 mg PO DAILY@1999 [facility] Last Admin: 03/08/19 21:42 Dose: 0.5 mg Pregabalin (Lyrica -) 100 mg PO TID [facility] Last Admin: 03/09/19 05:44 Dose: Not Given Pyridoxine HCl (Vitamin B6 -) 50 mg PO DAILY [facility] Last Admin: 03/09/19 09:26 Dose: Not Given Senna (Senna -) 2 tab PO HS [facility] Last Admin: 03/08/19 21:40 Dose: 2 tab Simethicone (Mylicon -) 80 mg PO Q4HWA [facility] Last Admin: 03/09/19 09:32 Dose: 80 mg Tramadol HCl (Ultram -) 50 mg PO ONCE ONE Stop: 03/08/19 14:10 Umeclidinium/Vilanterol (Anoro Ellipta 62.5-25 Mcg Inh) 1 puff IH DAILY [facility] - Objective Vital Signs: Vital Signs Temperature 98.3 F 03/09/19 10:00 Pulse Rate 65 03/09/19 10:00 Respiratory Rate 18 03/09/19 10:00 Blood Pressure 128/64 03/09/19 10:00 O2 Sat by Pulse Oximetry (%) 98 03/09/19 10:00 Constitutional: Yes: No Distress, Calm Eyes: Yes: Conjunctiva Clear HENT: Yes: Atraumatic Cardiovascular: Yes: Regular Rate and Rhythm Respiratory: Yes: Regular, CTA Bilaterally Gastrointestinal: Yes: Normal Bowel Sounds, Soft, Abdomen, Obese Musculoskeletal: Yes: Muscle Weakness Extremities: Yes: WNL Edema: No Neurological: Yes: Alert, Oriented Psychiatric: Yes: Alert Labs: CBC, BMP 03/09/19 05:30 03/09/19 05:30 INR, PTT INR 1.16 (0.83-1.09) H 03/08/19 11:30 Fibrinogen 493.0 mg/dL (238-498) 03/08/19 11:30 Microbiology 03/08/19 01:00 Urine - Urine Clean Catch Urine Culture - Final Contaminated: Please Repeat 03/07/19 05:55 Blood - Peripheral Venous Blood Culture - Preliminary NO GROWTH OBTAINED AFTER 48 HOURS, INCUBATION TO CONTINUE FOR 3 DAYS. 03/07/19 05:45 Blood - Peripheral Venous Blood Culture - Preliminary NO GROWTH OBTAINED AFTER 48 HOURS, INCUBATION TO CONTINUE FOR 3 DAYS. Problem List - Problems (1) Bradycardia Assessment/Plan: -Cardiology on board -Tele monitoring Code(s): R00.1 - BRADYCARDIA, UNSPECIFIED (2) CHF (congestive heart failure) Assessment/Plan: -1L fluid restriction -daily weights Code(s): I50.9 - HEART FAILURE, UNSPECIFIED (3) CKD (chronic kidney disease) Assessment/Plan: -Renal on board -BUN/Cr 89/7.5 -patient refusing dialysis -monitor renal function Code(s): N18.9 - CHRONIC KIDNEY DISEASE, UNSPECIFIED (4) Cushings syndrome Assessment/Plan: -Endo on board -dexamethasone suppresion test -acth (5) Elevated LFTs Assessment/Plan: -monitor LFT -ABdominal US reviewed -GI consult Code(s): R94.5 - ABNORMAL RESULTS OF LIVER FUNCTION STUDIES (7) COPD (chronic obstructive pulmonary disease) Assessment/Plan: -Pulm on board -Anoro -bronchodilators -keep SpO2 >90% -O2 via [place] Code(s): J44.9 - CHRONIC OBSTRUCTIVE PULMONARY DISEASE, UNSPECIFIED (8) HTN (hypertension) Assessment/Plan: -Nifedipine and Cardizem -low Na diet Code(s): I10 - ESSENTIAL (PRIMARY) HYPERTENSION (9) Visual hallucination Assessment/Plan: -check ammonia level -psych consult Code(s): R44.1 - VISUAL HALLUCINATIONS Assessment/Plan see problem list
[2019-03-09] MEDS ORDERED: CALCIUM ACETATE 667 MG CAPSULE (FP) PO SCH (17:30)
--- NOTE | 2019-03-09 17:30 | PN ---
Progress Note (short form) - Note Progress Note: This is a 63 yo female seen in room surrounded by her family. report earlier today that she seen a boy and a child in her room,( in large double rooom with shadows). Client has multiple chronic illness including stage 5 CKD, cushings, barady cardia, CHF, copd, htn, amonia level done today is 66.8. Spoke with [facility] on unit. Client request hold on HD currently. Problem List - Problems (1) Unformed visual hallucinations Code(s): R44.1 - VISUAL HALLUCINATIONS (2) Visual hallucination Assessment/Plan: Client is assessed to have seen things from ICU room and here. Client is adamant that it is real. Client also complain of poor sleep, reduced appetite. ammonia level in am, to rule out delirium. Clock drawing test complete shows mild inability to complete, unsure what her former cognitive ability was. plan spoke with [facility]. add olanzapine 2.5 mg at night for visual hallucinations. Code(s): R44.1 - VISUAL HALLUCINATIONS
--- NOTE | 2019-03-09 17:44 | PN ---
Mental Health Exam - Mental Status Exam Alert and Oriented to: Time, Place Cognitive Function: Grossly Intact Patient Appearance: Unkempt Mood: Apprehensive, Hopeful Affect: Appropriate, Constricted Patient Behavior: Suspicious, Talkative, Cooperative Speech Pattern: Tangential Voice Loudness: Mildly Soft/Quiet Thought Process: Circumstantial Thought Disorder: Not Present Hallucinations: Auditory Suicidal Ideation: Denies Homicidal Ideation: Denies Insight/Judgement: Fair Sleep: Poorly (unable to slep at night. ) Appetite: Fair (loose appetite) Muscle strength/Tone: Mild Hypotonicity Gait/Station: Deferred
[2019-03-09] MEDS: ALBUTEROL SO4 0.083% IH SOL 2.5 MG/3 ML VIAL.NEB. NEB PRN (20:55)
[2019-03-09] MEDS: SENNOSIDES 8.6MG TABLET (FP) PO SCH (22:16)
[2019-03-09] MEDS: ATORVASTATIN CA 10 MG TABLET (FP) PO SCH (22:16)
[2019-03-09] MEDS ORDERED: GLUCAGON 1 MG KIT IM ONE (23:30)
[2019-03-09] MEDS ORDERED: CALCIUM GLUCONATE 10% - 1,000 MG/10 ML VIAL IVPUSH ONE (23:36)
[2019-03-09] MEDS ORDERED: GLUCAGON 1 MG KIT ONE (23:39)
[2019-03-09] MEDS ORDERED: CALCIUM GLUCONATE 10% - 1,000 MG/10 ML VIAL ONE (23:40)
[2019-03-09] MEDS ORDERED: PROPOFOL 1,000,000 MCG/100 ML VIAL IVPB SCH (23:45)
[2019-03-09] MEDS ORDERED: DOPAMINE 400 MG/D5W - 400,000 MCG/250 ML INFUS.BAG IVPB SCH (23:45)
--- NOTE | 2019-03-09 23:46 | PN ---
HC Provider Note Provider Note: Anesthesia Intubation Note Called to pt bedside for agonal breathing -- pt found minimally responsive BP difficult to obtain 57/32 with HR 40 after having received 2 rounds of atropine and one epinephrine. K 3.8 Equipment checked laryngoscope and suction -- Pt induced with succinylcholine 100 mg DL x1 VC seen with grade 1 view 7.5 ETT tube placed without difficulty, atraumatic, secured at 21 cm at teeth BS=BL, +CO2 return checked with Easy cap. Pt left with medical team BP after 2nd epi 147/94 Santy Balderas.
--- NOTE | 2019-03-10 00:42 | ED.PROV ---
Physicial Exam I saw and examined the patient. - Vital Signs Last Vital Signs Temp Pulse Resp BP Pulse Ox 97.7 F 46 L 18 96/44 L 98 03/09/19 18:00 03/09/19 18:10 03/09/19 18:10 03/09/19 18:10 03/09/19 10:00 Procedures - Central Line Central Line Lumen: triple Central Line Position: internal jugular (R) Complications: none Post Central Line Insertion: sutured, good blood return
--- NOTE | 2019-03-10 01:32 | PN ---
Progress Note (short form) - Note Progress Note: Pt was transported to ICU and upon arrival pt monitor read as asystolic. Upon pulse check no pulses were noted in the carotid and femoral regions. CPR was initiated as per ACLS protocol. For further Cardiac arrest procedures please refer to the code sheet. Pt received multiple runs of epinephrine alongside of bicarb. Family was briefed on events and decided to stop CPR after multiple attempts with asystolic response. Pt unresponsive even to noxious stimuli. Pupils fixed and non reactive. No carotid or femoral pulses present. No heart sounds or breath sounds heard. Pt was pronounced at 0118h on 03/10/19. Family was at bedside and aware Grievance services offered to family Body to be released to home of family's choice --Robert De Los Santos, DO - IM PGY-2
[2019-03-10] MEDS ORDERED: ATROPINE SO4 0.4 MG/1 ML VIAL IVPUSH ONE ×3 (03:12→03:19)
[2019-03-10] MEDS ORDERED: EPINEPHrine 1:1,000 1 MG/1 ML - 30ML VIAL (INJECTION) IV ONE ×4 (03:13→03:18)
[2019-03-10 03:15] VITALS: BP 92/55; PULSE 48; TEMP 98.2
[2019-03-10] MEDS ORDERED: SUCCINYLCHOLINE CHLORIDE 200 MG/10 ML VIAL IVPUSH ONE (03:16)
--- NOTE | 2019-03-10 03:20 | RAPID ---
Physical Examination Vital Signs: Vital Signs Temperature 98.2 F 03/09/19 22:00 Pulse Rate 48 L 03/09/19 22:00 Respiratory Rate 18 03/09/19 22:00 Blood Pressure 92/55 L 03/09/19 22:00 O2 Sat by Pulse Oximetry (%) 98 03/09/19 10:00 Labs: CBC, BMP 03/09/19 05:30 03/09/19 05:30 Rapid Response - Rapid Response Assessment: Rapid response called for Pt. found to be unresponsive with agonal respirations. Vs: initially 70s/40s, Rpt. was 80s/50s however was difficult to obtain BP with automated device so manual BPs were obtained. Blood Glucose was 146. Heart rate fluctuated between 20s-40s. Pt. saturated to 90%. Decision made to intubate to protect airway and to place central line for blood pressure management. Please see rapid sheet for details. Pt. transferred to ICU for further management.
[2019-03-10] MEDS ORDERED: NOREPINEPHRINE BITARTRATE 4,000 MCG in DEXTROSE 5%-WATER - 496 ML IV SCH (03:30)
[2019-03-10] MEDS ORDERED: MUPIROCIN 2% TOPICAL OINTMENT FOR DECOLONIZATION NS SCH (10:00)
[2019-03-10] MEDS ORDERED: CHLORHEXIDINE GLUCONATE 4% CLEANSER FOR DECOLONIZATION TP SCH (22:00)
[2019-03-11 04:09] LABS: SERUM IRON SATURATION 31 % (15-55); TOTAL IRON BINDING CAPACITY 237 ug/dL (250-450); UIBC 164 ug/dL (118-369)
== END 2019-03-10 04:12 | disposition expired | DRG 683 ==
LOC: JER 22:42 → JERBED 03-06 01:56 → J4W 03-06 05:28 → JICU 03-07 02:43 → J4S 03-08 14:03 → JICU 03-10 04:08
PROVIDERS: ADMIT Family Medicine; ATTEND Family Medicine
PROC: 5A1935Z Respiratory Ventilation, Less than 24 Consecutive Hours (ICD-10-PCS; principal; 2019-03-10)
PROC: 0BH17EZ Insertion of Endotracheal Airway into Trachea, Via Natural or Artificial Opening (ICD-10-PCS; 2019-03-10)
PROC: 5A12012 Performance of Cardiac Output, Single, Manual (ICD-10-PCS; 2019-03-10)
PROC: 05HM33Z Insertion of Infusion Device into Right Internal Jugular Vein, Percutaneous Approach (ICD-10-PCS; 2019-03-10)
DX: N17.9 Acute kidney failure, unspecified (principal); I13.2 Hypertensive heart and chronic kidney disease with heart failure and with stage 5 chronic kidney disease, or end stage renal disease; R00.1 Bradycardia, unspecified; N18.6 End stage renal disease; I95.9 Hypotension, unspecified; R60.1 Generalized edema; D69.6 Thrombocytopenia, unspecified; J44.9 Chronic obstructive pulmonary disease, unspecified; D64.9 Anemia, unspecified; I50.9 Heart failure, unspecified; I25.10 Atherosclerotic heart disease of native coronary artery without angina pectoris; I73.9 Peripheral vascular disease, unspecified; I46.9 Cardiac arrest, cause unspecified; R44.1 Visual hallucinations; E83.51 Hypocalcemia; G25.81 Restless legs syndrome; K21.9 Gastro-esophageal reflux disease without esophagitis; Z98.61 Coronary angioplasty status
CPT/HCPCS: 36415; 36600; 70450-TC; 71045-TC-FY; 72148-TC; 76700-TC; 80048; 80053; 80307; 81003; 82024; 82140; 82533; 82550; 82553; 82803; 82962; 83540; 83550; 83605; 83735; 83880; 84100; 84443; 84484; 85025; 85027; 85384; 85610; 85730; 86850; 86900; 86901; 86922; 87040; 87086; 93005; 93010; 93306-TC; 93971-TC; 94640; 97116-GP; 97161-GP; 99284-25; J7030